=== PATIENT | female | born 1995 | race Caucasian/White ===

== ENCOUNTER 2019-01-23 23:50 | Emergency (ER) | payer OTHER ==
[~2019-01-23 23:50] MED LIST: ALBU3IS INH; BUDE6HFA INH; BUSP10 PO; CETI5 PO; CYCL10 PO; MONT10T PO; ONDA4 PO; PRED20 PO; Q VAR INH; QVAR REDIHALE10.6 GM; Xolair150 MG SC; [UNRECOGNIZED DRUG - OTHER]
== END 2019-01-24 00:51 | disposition left against medical advice (07) ==
LOC: ER 23:50
DX: Z53.21 Procedure and treatment not carried out due to patient leaving prior to being seen by health care provider (principal)

== ENCOUNTER → 2019-01-27 | Outpatient (CLI) | payer OTHER | END | disposition home or self-care (01) | LOC: LAB 14:51 → LAB SHORT 14:51 | DX: J45.901 Unspecified asthma with (acute) exacerbation (principal) | CPT/HCPCS: 87070; 87205 ==

== ENCOUNTER 2019-02-26 12:16 | Emergency (ER) | payer OTHER ==
[~2019-02-26] VITALS: Ht 177.8 cm; Wt 117.9 kg
[~2019-02-26 12:16] MED LIST changes: +ALBU3IS NEB; -MONT10T PO; +Prozac20 MG PO; -[UNRECOGNIZED DRUG - OTHER]
[2019-02-26] MEDS ORDERED: Zanaflex4 MG (13:23)
[2019-02-26] MEDS ORDERED: BUSP10 PO (13:23)
[2019-02-26] MEDS ORDERED: Prednisone20 MG PO (15:26)
== END 2019-02-26 15:43 | disposition home or self-care (01) ==
LOC: ER 12:16
DX: J45.901 Unspecified asthma with (acute) exacerbation (principal); Z79.899 Other long term (current) drug therapy
CPT/HCPCS: 94640; 94644; 96365; 96366; 96375; 99284-25; J2930; J3475; J7030

== ENCOUNTER 2019-03-01 14:55 | Inpatient (IN) | payer OTHER ==
[~2019-03-01] VITALS: Ht 177.8 cm; Wt 125.2 kg
[~2019-03-01 14:55] MED LIST changes: +Prednisone20 MG PO; +Zanaflex4 MG
[2019-03-01 15:58] LABS: BASOPHILS ABSOLUTE AUTO 0.08 K/mm3 (0.00-0.23); BASOPHILS PERCENT AUTO 0 % (0-2); EOSINOPHILS ABSOLUTE AUTO 0.53 K/mm3 (0.00-0.68); EOSINOPHILS PERCENT AUTO 3 % (0-6); Hematocrit 43.7 % (33.0-51.0); Hemoglobin 14.1 g/dL (11.5-16.0); IMMATURE GRAN ABSOLUTE AUTO 0.41 K/mm3 (0.00-0.10); IMMATURE GRAN PERCENT AUTO 2 % (0-1); LYMPHOCYTES ABSOLUTE AUTO 4.63 K/mm3 (0.84-5.20); LYMPHOCYTES PERCENT AUTO 24 % (21-46); MONOCYTES ABSOLUTE AUTO 1.36 K/mm3 (0.16-1.47); MONOCYTES PERCENT AUTO 7 % (4-13); Mean Corpuscular HGB 29.2 pg (26.0-34.0); Mean Corpuscular HGB Conc 32.3 g/dL (31.5-36.5); Mean Corpuscular Volume 91 fL (80-100); Mean Platelet Volume 10.6 fL (9.1-12.4); NEUTROPHILS PERCENT AUTO 63 % (41-73); Platelet Count 240 K/mm3 (150-400); RDW Coefficient Variation 13.5 % (11.7-14.2); RDW Standard Deviation 45.2 fL (35.1-46.3); Red Blood Cell Count 4.83 M/mm3 (3.80-5.20); White Blood Cell Count 19.11 K/mm3 (4.00-11.30)
[2019-03-01 16:21] LABS: Alanine Aminotransfer (ALT/SGP 36 U/L (12-78); Albumin/Globulin Ratio 1.3 (0.8-1.8); Alk Phos 83 U/L (50-136); Anion Gap 7 mmol/L (6-16); Aspartate Aminotrans (AST/SGOT 15 U/L (12-37); Bilirubin, Total 0.4 mg/dL (0.1-1.0); Blood Urea Nitrogen 14 mg/dL (8-24); Bun/Creatinine Ratio 15.2 (12.0-20.0); CO2, Blood 26 mmol/L (21-32); Calcium, Blood 9.1 mg/dL (8.5-10.1); Chloride, Blood 109 mmol/L (98-108); Creatinine, Blood 0.92 mg/dL (0.40-1.00); Globulin, Blood 3.1 g/dL (2.2-4.0); Glomerular Filtration Rate >60 (60-); Glucose, Blood 73 mg/dL (70-99); Potassium, Blood 3.4 mmol/L (3.5-5.5); Sodium, Blood 142 mmol/L (136-145); Total Protein, Blood 7.1 g/dL (6.4-8.2)
[2019-03-01 16:38] LABS: PCO2 Arterial 33.7 mmHg (35-45); PO2 Arterial 57.2 mmHg (80-100); pH Blood Arterial 7.47 (7.35-7.45)
[2019-03-01] MEDS ORDERED: BUDE6HFA INH (18:00)
[2019-03-01] MEDS ORDERED: PRED20 PO (18:00)
[2019-03-01] MEDS ORDERED: Zanaflex4 M1 PO (18:01)
[2019-03-01] MEDS ORDERED: ALBU90OI INH (18:03)
[2019-03-01] MEDS ORDERED: TUDORZA PRESS400 MCG INH (18:04)
[2019-03-01] MEDS ORDERED: VITAMIN D31000 UNIT PO (18:06)
[2019-03-02 02:07] LABS: Adenovirus Not Detected (NOT DETECT); Bordetella pertussis Not Detected (NOT DETECT); Chlamydophila pneumoniae Not Detected (NOT DETECT); Coronavirus 229E Not Detected (NOT DETECT); Coronavirus HKU1 Not Detected (NOT DETECT); Coronavirus NL63 Not Detected (NOT DETECT); Coronavirus OC43 Not Detected (NOT DETECT); Human Metapneumovirus Not Detected (NOT DETECT); Human Rhinovirus/Enterovirus Not Detected (NOT DETECT); Influenza A Not Detected (NOT DETECT); Influenza A/2009-H1 Not Detected (NOT DETECT); Influenza A/H1 Not Detected (NOT DETECT); Influenza A/H3 Not Detected (NOT DETECT); Influenza B Not Detected (NOT DETECT); Mycoplasma pneumoniae Not Detected (NOT DETECT); Parainfluenza Virus 1 Not Detected (NOT DETECT); Parainfluenza Virus 2 Not Detected (NOT DETECT); Parainfluenza Virus 3 Not Detected (NOT DETECT); Parainfluenza Virus 4 Not Detected (NOT DETECT); Respiratory Syncytial Virus Not Detected (NOT DETECT)
--- NOTE | 2019-03-02 04:59 | NUR ---
SHIFT SUMMARY 2100 RECEIVED PT TO 327 FROM ER. A&O, VERY PLEASANT AND CO-OP WITH CARE. RECEIVED REPORT FROM ESTHER ULRICH. PT TO ER FOR ASTHMA EXAC AND SOB X 1WEEK. PER REPORT, PT WAS STARTED ON PREDNISONE A COUPLE OF DAYS AGO WITHOUT IMPROVEMENT. RT TX'S AND SOLUMEDROL GIVEN IN ER. PT APPEARED IN NO ACUTE DISTRESS WHEN ADMITTED TO . PT C/O L SIDE/RIB PAIN AFTER ADMISSION. PT REFUSED TYLENOL. HOSPITALIST NOTIFIED, NEW ORDERS RECEIVED. MEDS AND IVF'S ADMIN. PT INDEPENDENT IN . TALKED ON PHONE FOR A WHILE AND HAS SINCE BEEN RESTING QUIETLY. CALL LT IN REACH. ABLE TO MAKE NEEDS KNOWN.
[2019-03-02 05:54] LABS: BASOPHILS ABSOLUTE AUTO 0.03 K/mm3 (0.00-0.23); BASOPHILS PERCENT AUTO 0 % (0-2); EOSINOPHILS ABSOLUTE AUTO 0.01 K/mm3 (0.00-0.68); EOSINOPHILS PERCENT AUTO 0 % (0-6); Hematocrit 43.7 % (33.0-51.0); IMMATURE GRAN PERCENT AUTO 2 % (0-1); LYMPHOCYTES ABSOLUTE AUTO 0.97 K/mm3 (0.84-5.20); LYMPHOCYTES PERCENT AUTO 8 % (21-46); MONOCYTES ABSOLUTE AUTO 0.15 K/mm3 (0.16-1.47); MONOCYTES PERCENT AUTO 1 % (4-13); Mean Corpuscular HGB 28.7 pg (26.0-34.0); Mean Corpuscular Volume 90 fL (80-100); Mean Platelet Volume 10.2 fL (9.1-12.4); NEUTROPHILS ABSOLUTE AUTO 11.13 K/mm3 (1.96-9.15); NEUTROPHILS PERCENT AUTO 88 % (41-73); Platelet Count 236 K/mm3 (150-400); RDW Coefficient Variation 13.2 % (11.7-14.2); RDW Standard Deviation 43.3 fL (35.1-46.3); Red Blood Cell Count 4.87 M/mm3 (3.80-5.20); White Blood Cell Count 12.59 K/mm3 (4.00-11.30)
[2019-03-02 06:27] LABS: Anion Gap 7 mmol/L (6-16); Blood Urea Nitrogen 14 mg/dL (8-24); CO2, Blood 24 mmol/L (21-32); Calcium, Blood 8.7 mg/dL (8.5-10.1); Chloride, Blood 107 mmol/L (98-108); Creatinine, Blood 0.78 mg/dL (0.40-1.00); Glomerular Filtration Rate >60 (60-); Glucose, Blood 118 mg/dL (70-99); Potassium, Blood 4.5 mmol/L (3.5-5.5); Sodium, Blood 138 mmol/L (136-145)
--- NOTE | 2019-03-02 16:57 | NUR ---
PT IS A/OX3, PLEASANT AND COOPERATIVE, THE PT IS UP IND IN HER ROOM, THE PT IS SOB WITH ACTIVITY, PT WAS MEDICATED FOR PAIN X1 SO FAR THIS SHIFT, FOR PAIN IN HER LEFT SIDE RIBS, THE PT IS RECIEVING SCHEDULED BREATHING TX'S, THE PTS TECHNICAL SERVICE ENGINEER WAS CONSULTED AND HAS SEEN THE PT, MULTIPLE FAMILY IN TO SEE THE PT TODAY, CALL LIGHT IN REACH, WILL CONTINUE TO MONITOR AND ASSESS FOR CHANGES
--- NOTE | 2019-03-03 05:28 | NUR ---
SHIFT SUMMARY NO ACUTE CHANGES TO PRESENT THIS SHIFT. PT'S FAMILY IN RM ALL SHIFT, SLEEPING AT BS. PT'S LUNGS T/O REMAIN WHEEZY, BUT OVERALL IMPROVED. PT HAS NOT APPEARED IN ANY ACUTE DISTRESS. DENIED NEEDS. INDEPENDENT IN RM. NO C/O PAIN TONIGHT. PULMONARY CONSULT CALLED BY HOSPITALIST. PT'S OWN HIDE SORTER TO SEE HER. CALL LT IN REACH. ABLE TO MAKE NEEDS KNOWN.
--- NOTE | 2019-03-03 07:45 | NUR ---
ASSUMED CARE OF PT- RECIEVED REPORT FROM NIGHT RN. PER REPORT PT IS ALERT AND ORIENTED AND INDEPENDENT. POSSIBLE DC HOME TODAY. PT WAS FEARFUL ABOUT GOING HOME YESTERDAY AND WAS HELD ONE ADDITIONAL DAY, HER OUT PT THERAPY HAD FAILED PRIOR TO ADMIT PER MD NOTE. PT WAS CONCERNED, LIKELY, FOR THIS REASON. PER REPORT FROM NIGHT RN JOHN PT DECLINED SOME OF THE EVENING BREATHING Tx, DISCHARGE TODAY IS LIKELY.
[2019-03-03] MEDS ORDERED: TRAM50 PO (11:30)
[2019-03-03] MEDS ORDERED: AZIT250 PO (11:31)
--- NOTE | 2019-03-03 12:04 | NUR ---
DISCHARGE NOTE- PT WAS GIVEN VERBAL AND WRITTEN DISCHARGE INSTRUCTIONS AND ACKNOWLEDGED UNDERSTANDING OF THEM. NO FURTHER QUESTIONS AT THE TIME OF DISCHARGE. MEDS CALLED IN TO [facility] PER PT REQUEST. IV AND TELE DC'D PRIOR TO DISCHARGE.
== END 2019-03-03 12:05 | disposition home or self-care (01) | DRG 189 ==
LOC: ER 14:55 → MEDS 18:01 → ENPENDDIS 03-03 10:27 → MEDS 03-03 12:05
PROVIDERS: Emergency Medicine; ADMIT Internal Medicine
DX: J96.01 Acute respiratory failure with hypoxia (principal); J45.52 Severe persistent asthma with status asthmaticus; R65.10 Systemic inflammatory response syndrome (SIRS) of non-infectious origin without acute organ dysfunction; F41.8 Other specified anxiety disorders; M79.7 Fibromyalgia; E66.01 Morbid (severe) obesity due to excess calories; Z68.37 Body mass index [BMI] 37.0-37.9, adult; K21.9 Gastro-esophageal reflux disease without esophagitis; Z79.52 Long term (current) use of systemic steroids
CPT/HCPCS: 36415; 36600; 71046; 80048; 80053; 82803; 83605; 84145; 84703; 85025; 87486; 87581; 87633; 87798; 94640; 94644; 94760; 96374; 96375; 99285-25; J1885; J2930; J7030

== ENCOUNTER 2019-04-06 14:54 | Inpatient (IN) | payer OTHER ==
[~2019-04-06] VITALS: Ht 177.8 cm; Wt 100.1 kg
[~2019-04-06 14:54] MED LIST changes: +ALBU90OI INH; +AZIT250 PO; +TRAM50 PO; +TUDORZA PRESS400 MCG INH; +VITAMIN D31000 UNIT PO; +Zanaflex4 M1 PO
[2019-04-06 15:26] LABS: BASOPHILS ABSOLUTE AUTO 0.15 K/mm3 (0.00-0.23); BASOPHILS PERCENT AUTO 1 % (0-2); EOSINOPHILS ABSOLUTE AUTO 0.41 K/mm3 (0.00-0.68); EOSINOPHILS PERCENT AUTO 2 % (0-6); Hematocrit 47.4 % (33.0-51.0); Hemoglobin 15.7 g/dL (11.5-16.0); IMMATURE GRAN ABSOLUTE AUTO 0.84 K/mm3 (0.00-0.10); IMMATURE GRAN PERCENT AUTO 4 % (0-1); LYMPHOCYTES ABSOLUTE AUTO 3.52 K/mm3 (0.84-5.20); LYMPHOCYTES PERCENT AUTO 16 % (21-46); MONOCYTES ABSOLUTE AUTO 1.17 K/mm3 (0.16-1.47); MONOCYTES PERCENT AUTO 5 % (4-13); Mean Corpuscular HGB 29.3 pg (26.0-34.0); Mean Corpuscular HGB Conc 33.1 g/dL (31.5-36.5); Mean Corpuscular Volume 89 fL (80-100); Mean Platelet Volume 10.5 fL (9.1-12.4); NEUTROPHILS ABSOLUTE AUTO 16.05 K/mm3 (1.96-9.15); NEUTROPHILS PERCENT AUTO 72 % (41-73); Platelet Count 233 K/mm3 (150-400); RDW Coefficient Variation 13.5 % (11.7-14.2); RDW Standard Deviation 43.7 fL (35.1-46.3); Red Blood Cell Count 5.35 M/mm3 (3.80-5.20); White Blood Cell Count 22.14 K/mm3 (4.00-11.30)
[2019-04-06 15:45] LABS: Bicarbonate Venous 23.2 mmol/L (24.0-30.0); PCO2 Venous 40.9 mmHg (38-42); PO2 Venous 88.8 mmHg (38-42); pH Blood Venous 7.37 (7.34-7.37)
[2019-04-06 15:46] LABS: Base Excess Venous -1.4 mmol/L
[2019-04-06 15:48] LABS: Alanine Aminotransfer (ALT/SGP 50 U/L (12-78); Albumin, Blood 4.4 g/dL (3.4-5.0); Albumin/Globulin Ratio 1.2 (0.8-1.8); Alk Phos 81 U/L (50-136); Anion Gap 8 mmol/L (6-16); Aspartate Aminotrans (AST/SGOT 30 U/L (12-37); Bilirubin, Total 0.7 mg/dL (0.1-1.0); Blood Urea Nitrogen 11 mg/dL (8-24); Bun/Creatinine Ratio 15.7 (12.0-20.0); CO2, Blood 24 mmol/L (21-32); Calcium, Blood 9.1 mg/dL (8.5-10.1); Chloride, Blood 108 mmol/L (98-108); Globulin, Blood 3.7 g/dL (2.2-4.0); Glomerular Filtration Rate >60 (60-); Glucose, Blood 125 mg/dL (70-99); Potassium, Blood 3.9 mmol/L (3.5-5.5); Sodium, Blood 140 mmol/L (136-145); Total Protein, Blood 8.1 g/dL (6.4-8.2)
[2019-04-06] MEDS ORDERED: Prednisone10 MG PO (17:12)
[2019-04-06] MEDS ORDERED: COMBIVENT RESPIM4 GM INH (17:14)
[2019-04-06] MEDS ORDERED: MONT10T PO (17:46)
--- NOTE | 2019-04-06 21:37 | NUR ---
1829: PT TO ICU 6 FROM ER. 1914: ASSUMED CARE OF PT. REPORT RCV'D FROM SERG VILLAGRAN. ADMISSION ASSESSMENT AND HISTORY FINISHED. PT ON BIPAP 10/5 21% WITH SATS IN THE MID TO HIGH 80'S. BIPAP SETTINGS CHANGED TO 10/8 35% BY RESPIRATORY THERAPY, CURRENT SATS IN LOW 90'S. INSPIRATORY/EXPIRATORY WHEEZES HEARD BILATERAL UPPER LUNGS, DIM BASES. PT ABLE TO TOLERATE REMOVING BIPAP FOR SHORT TIME TO TAKE PO MEDS. PT C/O LEFT SIDED LUNG PAIN. PT TACHYCARDIC. BP WNL. PT ALERT/ORIENTED AND COOPERATIVE WITH CARE. NS KCL@ 100 ML/HR AND AZITHROMYCIN GTT RUNNING. SEE ADMISSION ASSESSMENT AND HISTORY.
[2019-04-07 00:05] LABS: Source, Urine Clean Catch
[2019-04-07 00:09] LABS: Bilirubin, Urine Neg (Neg); Blood, Urine Neg (Neg); Glucose Qualitative, Urine Neg (Neg); Ketones, Urine 3+ (Neg); Leukocyte Esterase, Urine 2+ (Neg); Nitrite, Urine Neg (Neg); Protein, Urine Neg (Neg); Urobilinogen, Urine NORM (Normal)
[2019-04-07 00:25] LABS: Appearance, Urine Clear (Clear); Color, Urine Yellow (P-Yellow)
[2019-04-07 00:26] LABS: Bacteria Mod /hpf; Red Blood Cells, Urine 0-2 /hpf (0-2); Squamous Epithelial Cells Many /hpf (Few)
[2019-04-07 01:24] LABS: Adenovirus Not Detected (NOT DETECT); Bordetella pertussis Not Detected (NOT DETECT); Chlamydophila pneumoniae Not Detected (NOT DETECT); Coronavirus 229E Not Detected (NOT DETECT); Coronavirus HKU1 Not Detected (NOT DETECT); Coronavirus NL63 Not Detected (NOT DETECT); Coronavirus OC43 Not Detected (NOT DETECT); Human Metapneumovirus Not Detected (NOT DETECT); Human Rhinovirus/Enterovirus Not Detected (NOT DETECT); Influenza A Not Detected (NOT DETECT); Influenza A/2009-H1 Not Detected (NOT DETECT); Influenza A/H1 Not Detected (NOT DETECT); Influenza A/H3 Not Detected (NOT DETECT); Influenza B Not Detected (NOT DETECT); Mycoplasma pneumoniae Not Detected (NOT DETECT); Parainfluenza Virus 1 Not Detected (NOT DETECT); Parainfluenza Virus 2 Not Detected (NOT DETECT); Parainfluenza Virus 3 Not Detected (NOT DETECT); Parainfluenza Virus 4 Not Detected (NOT DETECT); Respiratory Syncytial Virus Not Detected (NOT DETECT)
[2019-04-07 03:37] LABS: BASOPHILS ABSOLUTE AUTO 0.04 K/mm3 (0.00-0.23); BASOPHILS PERCENT AUTO 0 % (0-2); EOSINOPHILS PERCENT AUTO 0 % (0-6); Hematocrit 44.8 % (33.0-51.0); Hemoglobin 14.6 g/dL (11.5-16.0); IMMATURE GRAN ABSOLUTE AUTO 0.46 K/mm3 (0.00-0.10); IMMATURE GRAN PERCENT AUTO 2 % (0-1); LYMPHOCYTES ABSOLUTE AUTO 0.56 K/mm3 (0.84-5.20); LYMPHOCYTES PERCENT AUTO 3 % (21-46); MONOCYTES ABSOLUTE AUTO 0.21 K/mm3 (0.16-1.47); MONOCYTES PERCENT AUTO 1 % (4-13); Mean Corpuscular HGB 29.1 pg (26.0-34.0); Mean Corpuscular HGB Conc 32.6 g/dL (31.5-36.5); Mean Corpuscular Volume 89 fL (80-100); Mean Platelet Volume 10.4 fL (9.1-12.4); NEUTROPHILS ABSOLUTE AUTO 18.31 K/mm3 (1.96-9.15); NEUTROPHILS PERCENT AUTO 94 % (41-73); Platelet Count 221 K/mm3 (150-400); RDW Coefficient Variation 13.4 % (11.7-14.2); RDW Standard Deviation 43.8 fL (35.1-46.3); Red Blood Cell Count 5.01 M/mm3 (3.80-5.20); White Blood Cell Count 19.58 K/mm3 (4.00-11.30)
[2019-04-07 03:54] LABS: Anion Gap 7 mmol/L (6-16); Blood Urea Nitrogen 8 mg/dL (8-24); Bun/Creatinine Ratio 12.1 (12.0-20.0); CO2, Blood 23 mmol/L (21-32); Calcium, Blood 8.5 mg/dL (8.5-10.1); Chloride, Blood 108 mmol/L (98-108); Creatinine, Blood 0.66 mg/dL (0.40-1.00); Glomerular Filtration Rate >60 (60-); Glucose, Blood 150 mg/dL (70-99); Potassium, Blood 4.5 mmol/L (3.5-5.5); Sodium, Blood 138 mmol/L (136-145)
--- NOTE | 2019-04-07 05:48 | NUR ---
SHIFT SUMMARY NO ACUTE CHANGES OVERNIGHT. PT REMAINS ON BIPAP 10/8 35% WITH O2 SATS IN THE MID 90'S. PT UP TO USE TOILET TO HAVE BM WITH SBA. PT KEPT BIPAP ON DURING AMBULATION, PT DYSPNEIC WITH EXERTION WITH INCREASED RR. PT STILL CONTINUES TO HAVE INSPIRATORY/EXPIRATORY WHEEZES BILATERAL UPPER LOBES BUT HAVE IMPROVED SINCE ADMISSION. WILL REPORT TO DAYSSDFT NURSE.
--- NOTE | 2019-04-07 08:00 | NUR ---
ASSUMED CARE OF PT. PT IS ALERT AND ORIENTED. PT IS FOLLOWING COMMANDS. PT HAS BEEN ON BIPAP 10/5 30% FIO2. PT IS HAVING A BREAK ON HER BIPAP AT THIS TIME AND IS CURRENTLY @ 6LPM NC. O2 SATURATION 96% ON 6LPM. PT STATED SHE IS BREATHING A LITTLE BETTER TODAY THAN YESTERDAY.
--- NOTE | 2019-04-07 09:13 | NUR ---
SEEN BY DR. STREETER. UPDATED HER OF PT'S STATUS. ORDERS RECEIVED. PT'S STATUS HAS BEEN CHANGED TO PCU STATUS.
--- NOTE | 2019-04-07 10:55 | NUR ---
REPORT GIVEN TO SERG MARTINEZ. PT WILL BE TRASNFERED TO ROOM PCU 16.
--- NOTE | 2019-04-07 11:10 | NUR ---
pt arrived to pcu 16 via wheelchair from icu, report obtained from Yamil ULRICH. pt is ambulatory and steady on her feet. states she is feeling a lot better than yesterday. will have a shower. call light in reach.
--- NOTE | 2019-04-07 18:32 | NUR ---
pt resting in bed with family in room. states he side hurts in her lung where she has chronic pain, doesn't want tramadol, states it doesn't do anything. no offered heat pad, she said it doesn't help. no further changes this shift, call light in reach.
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
--- NOTE | 2019-04-08 07:07 | NUR ---
pt sitting up in bed recieving a breathing tx. a/ox3, pleasant and cooperative with care follows commands well, denies complaints of pain this am, states she had a pretty good night, lungs are dim with exp wheezing t/o, resp even and unlabord, no cough noted at this time, she is currently on 3.5 liters 02 via n/c, hrr, tele in place running sr per monitor, see strip, slight facial edema iv to r wrist, s.l. btx4, abd flat soft nontender, voids without diff, skin c/w/d, rosita fitzgerald, call light in reach, family in room.
--- NOTE | 2019-04-08 12:42 | NUR ---
PT HAS BEEN OFF O2 SINCE 0900, SATS ARE MAINTAINING AT 92%. SHE STATES SHE FEELS GOOD AND COULD GO HOME, OR STAY WHAT EVER SAYS, WILL CALL DR. VELASCO. FAMILY IN ROOM. CALL LIGHT IN REACH.
--- NOTE | 2019-04-08 16:29 | NUR ---
PT VISITING WITH FAMILY AND FRIENDS IN ROOM. SHE WAS HTN, SHE IS HAVING PAIN RATES AT 7/10, CALLED DR. VELASCO, RECIEVED ORDER FOR TORADOL AND HYDRALAZINE, GAVE THE TORADAL, B/P IS DOWN A BIT, PAIN NOW AT 5/10. WILL BE SENDINTG TO MEDICAL FLOOR, REPORT GIVEN TO GIOVANY ULRICH. HE WILL CALL WHEN ROOM IS READY. CALL LIGHT IN REACH.
--- NOTE | 2019-04-08 17:02 | NUR ---
PT WAS TRANSFERED TO MEDICAL FLOOR VIA WHEELCHAIR WITH ADULT MANAGER IN ATTENDENCE AND FAMILY TOOK ALL HER BELONGINGS.
--- NOTE | 2019-04-08 17:29 | NUR ---
TRANSFER FROM U 13. ARRIVE RM 301 APPROX 1630 VIA W/C ACCOMPANIED BY MULT FAMILY MEMBERS. SHE IS A/O X4, TRANSFERS/AMBULATES IND. PLEASANT AFFECT. STATES SOB @ THIS TIME, STATES HAS IMPROVED SINCE ADMIT, NO LONGER REQUIRING O2. STATE HX ASTHMA SINCE CHILDHOOD. LUNGS WHEEZY T/O, BIOX >90% RA. IV AZITH INFUSING/ORDER, SHE DECLINE LOVENOX INJ. ENCOURAGED HER TO CALL FOR BREATHING TX IF NEEDED. SITTING UP IN BED FOR DINNER, INTERACTING WITH VISITORS.
--- NOTE | 2019-04-09 05:53 | NUR ---
SHIFT SUMMARY: SLEEP STUDY IN PROGRESS TONLAURA. PT TOLERATING RA WITH O2 SATS 93-96%. PT DENIES ANY SOB OR DISCOMFORT. INSPIRATORY/EXPIRATORY WHEEZE BILATERAL T/O. PT HAS MULTIPLE FAMILY MEMBERS IN RM T/O NIGHT AND REPORTS A GOOD SUPPORT SYSTEM AT HOME. SOLU MEDROL ADMINISTERED Q8H PER EMAR. DENIES PAIN. NO OTHER CHANGES TO REPORT, WILL CONT TO MONITOR AND PROVIDE CARE UNTIL PRESUMED BY ONCOMING RN.
--- NOTE | 2019-04-09 12:10 | NUR ---
SHIFT SUMMARY PT SLEEPING AT START OF SHIFT. WOKE FOR BS REPORT. VERY PLEASANT AND CO-OP. ADMITTED FOR ASTHMA EXAC, IMPROVED SINCE ADMIT. PT REPORTED FEELING MUCH BETTER NOW. AMITTED ON BIPAP AT 6L O2, NOW ON RA. LUNGS T/O WITH INSP/EXP WHEEZES. PT CHANGED FROM IV SOLUMEDROL THIS AM TO PO PREDNISONE AND D/C TO HOME. FAMILY IN AT START OF SHIFT, LEAVING PRIOR TO D/C. IV D/C'D WNL'S. PT ASSISTED OUT TO CAR VIA W/C AND CIRCUS TRAIN SUPERVISOR.
== END 2019-04-09 11:33 | disposition home or self-care (01) | DRG 189 ==
LOC: ER 14:54 → ICUW 17:09 → ICUE 18:30 → PCU 04-07 11:05 → MEDS 04-08 16:51 → ENPENDDIS 04-09 10:30 → MEDS 04-09 11:33
PROVIDERS: Nurse Practitioner Acute Care; Physician Assistant; ADMIT Internal Medicine
DX: J96.01 Acute respiratory failure with hypoxia (principal); J45.51 Severe persistent asthma with (acute) exacerbation; M79.7 Fibromyalgia; E66.01 Morbid (severe) obesity due to excess calories; F41.8 Other specified anxiety disorders; J44.9 Chronic obstructive pulmonary disease, unspecified; K21.9 Gastro-esophageal reflux disease without esophagitis; Z88.1 Allergy status to other antibiotic agents; Z79.899 Other long term (current) drug therapy; Z68.37 Body mass index [BMI] 37.0-37.9, adult
CPT/HCPCS: 0099U; 36415; 71045; 80048; 80053; 81001; 82803; 84484; 85025; 87086; 93005; 93010; 94640; 94644; 94660; 94760; 94762; 96365; 96366; 96367; 96368; 96375; 99285-25; J0456; J0780; J1885; J2920; J2930; J3475; J3480; J7030; J7050

== ENCOUNTER 2019-05-05 15:52 | Observation (INO) | payer OTHER ==
[~2019-05-05] VITALS: Ht 180.3 cm; Wt 127.2 kg
[~2019-05-05 15:52] MED LIST changes: +COMBIVENT RESPIM4 GM INH; +MONT10T PO; +Prednisone10 MG PO
[2019-05-05] MEDS ORDERED: Prednisone10 MG PO (16:32)
[2019-05-05] MEDS ORDERED: Azithromycin500 MG PO (16:33)
[2019-05-05 16:51] LABS: BASOPHILS PERCENT AUTO 1 % (0-2); EOSINOPHILS ABSOLUTE AUTO 0.01 K/mm3 (0.00-0.68); EOSINOPHILS PERCENT AUTO 0 % (0-6); Hematocrit 45.9 % (33.0-51.0); Hemoglobin 15.4 g/dL (11.5-16.0); IMMATURE GRAN ABSOLUTE AUTO 0.93 K/mm3 (0.00-0.10); IMMATURE GRAN PERCENT AUTO 5 % (0-1); LYMPHOCYTES ABSOLUTE AUTO 1.18 K/mm3 (0.84-5.20); LYMPHOCYTES PERCENT AUTO 6 % (21-46); MONOCYTES PERCENT AUTO 2 % (4-13); Mean Corpuscular HGB 30.1 pg (26.0-34.0); Mean Corpuscular HGB Conc 33.6 g/dL (31.5-36.5); Mean Corpuscular Volume 90 fL (80-100); NEUTROPHILS ABSOLUTE AUTO 18.07 K/mm3 (1.96-9.15); NEUTROPHILS PERCENT AUTO 87 % (41-73); Platelet Count 265 K/mm3 (150-400); RDW Coefficient Variation 13.9 % (11.7-14.2); RDW Standard Deviation 45.2 fL (35.1-46.3); Red Blood Cell Count 5.11 M/mm3 (3.80-5.20); White Blood Cell Count 20.69 K/mm3 (4.00-11.30)
[2019-05-05 17:51] LABS: Alanine Aminotransfer (ALT/SGP 51 U/L (12-78); Albumin, Blood 4.3 g/dL (3.4-5.0); Albumin/Globulin Ratio 1.2 (0.8-1.8); Alk Phos 90 U/L (50-136); Anion Gap 10 mmol/L (6-16); Bilirubin, Total 0.6 mg/dL (0.1-1.0); Blood Urea Nitrogen 14 mg/dL (8-24); CO2, Blood 21 mmol/L (21-32); Chloride, Blood 108 mmol/L (98-108); Creatinine, Blood 0.88 mg/dL (0.40-1.00); Globulin, Blood 3.6 g/dL (2.2-4.0); Glomerular Filtration Rate >60 (60-); Glucose, Blood 123 mg/dL (70-99); Sodium, Blood 139 mmol/L (136-145); Total Protein, Blood 7.9 g/dL (6.4-8.2)
[2019-05-05 18:00] LABS: Aspartate Aminotrans (AST/SGOT 16 U/L (12-37); Calcium, Blood 9.8 mg/dL (8.5-10.1)
--- NOTE | 2019-05-06 05:57 | NUR ---
SHIFT SUMMARY PT ADMITTED FROM ER DURING SHIFT. PT REPORTS FEELING OF TIGHTNESS AND SOB IMPROVED. RA; SATS OVER 90% T/O SHIFT. CONT.-OX IN PLACE. EVEN WOB. A&O X4 T/O SHIFT. SBA ENCOURAGED WHEN OOB FOR SAFETY. IV GTT PER EMAR. CALL LIGHT IN REACH; PT DEMONSTRATES USE. SCD'S TO BLE'S. TELEMETRY IN PLACE; SR/ST PER APPLICATION TRAINER. FAMILY AT BEDSIDE. CALL LIGHT IN REACH.
--- NOTE | 2019-05-06 07:42 | NUR ---
The pt is awake, sitting up in bed, cheerful and talking pleasantly. Respirations are even, unlabored, at 14-16/min, spo2 90% on room air. She has audible wheezing, expiratory and inspiratory just after finishing her breathing treatment. States that she has been having left sided pain every since having a bronchiothermoplasty last year. States it is excrutiating, and no scans or imaging studies have been able to determine the cause.
[2019-05-06] MEDS ORDERED: Prednisone10 MG PO (11:16)
[2019-05-06] MEDS ORDERED: AZIT500 PO (11:19)
== END 2019-05-06 11:48 | disposition home or self-care (01) ==
LOC: ER 15:52 → PCU 15:53
PROVIDERS: Physician Assistant; ADMIT Hospitalist
DX: J45.51 Severe persistent asthma with (acute) exacerbation (principal); J96.01 Acute respiratory failure with hypoxia; J06.9 Acute upper respiratory infection, unspecified; F41.8 Other specified anxiety disorders; K21.9 Gastro-esophageal reflux disease without esophagitis; E66.01 Morbid (severe) obesity due to excess calories; Z79.899 Other long term (current) drug therapy; Z68.36 Body mass index [BMI] 36.0-36.9, adult
CPT/HCPCS: 71046; 80053; 85025; 93005; 93010; 94640; 94644; 94762; 96361; 96365; 96366; 96375; 96376; 99285-25; G0378; J2930; J3475; J7030

== ENCOUNTER 2019-07-05 15:52 | Emergency (ER) | payer OTHER ==
[~2019-07-05] VITALS: Ht 180.3 cm; Wt 129.3 kg
[~2019-07-05 15:52] MED LIST changes: +AZIT500 PO; +Azithromycin500 MG PO
[2019-07-05 17:05] LABS: pH Blood Venous 7.41 (7.34-7.37)
[2019-07-05 17:06] LABS: Base Excess Venous -1.9 mmol/L; Bicarbonate Venous 23.2 mmol/L (24.0-30.0); PCO2 Venous 35.9 mmHg (38-42); PO2 Venous 62.4 mmHg (38-42)
[2019-07-05] MEDS ORDERED: PRED10 PO (17:42)
== END 2019-07-05 17:55 | disposition home or self-care (01) ==
LOC: ER 15:52
PROVIDERS: Physician Assistant
DX: J45.901 Unspecified asthma with (acute) exacerbation (principal); Z88.0 Allergy status to penicillin; Z79.899 Other long term (current) drug therapy; Z79.52 Long term (current) use of systemic steroids
CPT/HCPCS: 82803; 94644; 96365; 96375; 99285-25; J2930; J3475; J7030

== ENCOUNTER 2019-08-12 13:21 | Inpatient (IN) | payer OTHER ==
[~2019-08-12] VITALS: Ht 177.8 cm; Wt 128.0 kg
[~2019-08-12 13:21] MED LIST changes: -ALBU3IS NEB; -CETI5 PO; +Cetirizine HCl10 MG PO; +PRED10 PO
[2019-08-12 14:00] LABS: BASOPHILS ABSOLUTE AUTO 0.14 K/mm3 (0.00-0.23); BASOPHILS PERCENT AUTO 1 % (0-2); EOSINOPHILS ABSOLUTE AUTO 0.74 K/mm3 (0.00-0.68); EOSINOPHILS PERCENT AUTO 4 % (0-6); Hematocrit 49.3 % (33.0-51.0); Hemoglobin 16.2 g/dL (11.5-16.0); IMMATURE GRAN PERCENT AUTO 2 % (0-1); LYMPHOCYTES ABSOLUTE AUTO 3.24 K/mm3 (0.84-5.20); LYMPHOCYTES PERCENT AUTO 19 % (21-46); MONOCYTES ABSOLUTE AUTO 1.01 K/mm3 (0.16-1.47); MONOCYTES PERCENT AUTO 6 % (4-13); Mean Corpuscular HGB 29.7 pg (26.0-34.0); Mean Corpuscular HGB Conc 32.9 g/dL (31.5-36.5); Mean Corpuscular Volume 90 fL (80-100); Mean Platelet Volume 10.3 fL (9.1-12.4); NEUTROPHILS ABSOLUTE AUTO 12.02 K/mm3 (1.96-9.15); NEUTROPHILS PERCENT AUTO 68 % (41-73); Platelet Count 285 K/mm3 (150-400); RDW Coefficient Variation 13.3 % (11.7-14.2); RDW Standard Deviation 43.5 fL (35.1-46.3); Red Blood Cell Count 5.46 M/mm3 (3.80-5.20); White Blood Cell Count 17.55 K/mm3 (4.00-11.30)
[2019-08-12 14:18] LABS: Alanine Aminotransfer (ALT/SGP 56 U/L (12-78); Albumin, Blood 4.5 g/dL (3.4-5.0); Albumin/Globulin Ratio 1.3 (0.8-1.8); Alk Phos 107 U/L (50-136); Anion Gap 9 mmol/L (6-16); Aspartate Aminotrans (AST/SGOT 33 U/L (12-37); Bilirubin, Total 0.7 mg/dL (0.1-1.0); Blood Urea Nitrogen 8 mg/dL (8-24); Bun/Creatinine Ratio 9.8 (12.0-20.0); CO2, Blood 26 mmol/L (21-32); Calcium, Blood 9.2 mg/dL (8.5-10.1); Chloride, Blood 106 mmol/L (98-108); Creatinine, Blood 0.82 mg/dL (0.40-1.00); Globulin, Blood 3.5 g/dL (2.2-4.0); Glomerular Filtration Rate >60 (60-); Glucose, Blood 109 mg/dL (70-99); Potassium, Blood 3.4 mmol/L (3.5-5.5); Sodium, Blood 141 mmol/L (136-145)
[2019-08-12] MEDS ORDERED: PRED20 PO (18:18)
[2019-08-12] MEDS ORDERED: Hydrochlorothia25 MG PO (18:20)
[2019-08-12] MEDS ORDERED: XANAX0.25 MG PO (18:23)
[2019-08-13 03:49] LABS: Hematocrit 45.4 % (33.0-51.0); Hemoglobin 14.4 g/dL (11.5-16.0); Mean Corpuscular HGB 29.3 pg (26.0-34.0); Mean Corpuscular HGB Conc 31.7 g/dL (31.5-36.5); Mean Corpuscular Volume 92 fL (80-100); Mean Platelet Volume 10.6 fL (9.1-12.4); Platelet Count 265 K/mm3 (150-400); RDW Standard Deviation 44.3 fL (35.1-46.3); Red Blood Cell Count 4.92 M/mm3 (3.80-5.20); White Blood Cell Count 13.15 K/mm3 (4.00-11.30)
[2019-08-13 04:09] LABS: Anion Gap 7 mmol/L (6-16); Blood Urea Nitrogen 9 mg/dL (8-24); Bun/Creatinine Ratio 11.1 (12.0-20.0); CO2, Blood 25 mmol/L (21-32); Calcium, Blood 8.8 mg/dL (8.5-10.1); Chloride, Blood 108 mmol/L (98-108); Creatinine, Blood 0.81 mg/dL (0.40-1.00); Glomerular Filtration Rate >60 (60-); Glucose, Blood 124 mg/dL (70-99); Potassium, Blood 4.3 mmol/L (3.5-5.5); Sodium, Blood 140 mmol/L (136-145)
--- NOTE | 2019-08-13 06:45 | NUR ---
ADMIT NOTE/SHIFT SUMMARY PATIENT PLEASENT AND COOPERATIVE UPON ADMIT. PATIENT VERY CHEERFUL AND INTERACTIVE WITH STAFF. PATIENT SETTLED IN AND ORIETNED TO THE ROOM, UNIT, AND CALL LIGHT. PATIENT APPEARED TO SLEEP WELL THROUGHOUT MOST OF THE NIGHT. PAIN MEDICATION PROVIDED PER EMAR. PATIENT'S AND DAUGHTER STAYED THE NIGHT AT THE BEDSIDE. IV FLUIDS RUNNING PER ORDERS. WILL CONTINUE TO MONITOR PATIENT AND REPORT TO ONCOMING RN.
--- NOTE | 2019-08-13 08:48 | NUR ---
AM NOTE. ASSUMED CARE OF PT APROX 0700. PT IS A&Ox4 AND IND IN THE ROOM. PT WAS ADMITTED FOR ASHTMA EXAC. PT IS ON RA WITH O2 SATS AT 90-92%. L/S COARSE WHEEZES T/O, PER PT SHE FEELS "MUCH BETTER" AND BREATHING IS EASIER. PT'S VS STABLE. PT'S SO AND DAUGHTER ARE IN THE ROOM. PT IS C/O OF PAIN THE THE LEFT CHEST WALL WITH BREATHING WILL MEDICATE PER EMAR. CALL LIGHT IN REACH, WILL CONTINUE TO MONITOR.
--- NOTE | 2019-08-13 17:57 | NUR ---
SHIFT SUMMARY. NO ACUTE NEGATIVE CHANGES NOTED THIS SHIFT. PT'S L/S HAVE IMPROVED, LESS WHEEZING IS NOTED. PT HAS BEEN >90% ON RA. PT'S VS STABLE. PT C/O OF PAIN TO THE LEFT CHEST, PT MEDICATED PER EMAR W/GOOD RESULTS. CALL LIGHT IN REACH, BED IS LOCKED AND LOW WILL CONTINUE TO MONITOR UNTIL REPORT IS GIVEN TO ONCOMING RN.
--- NOTE | 2019-08-14 05:41 | NUR ---
SHIFT SUMMARY PATIENT PLEASENT THROUGHOUT THE NIGHT. PATIENT MEDICATED FOR PAIN PER EMAR. PATIENT APPEARED TO SLEEP WELL THROUGHOUT THE NIGHT. PATIENT'S SIGNIFICANT OTHER AND DAUGHTER STAYED THE NIGHT AT THE BEDSIDE. PATIENT INDEPENDENT IN ROOM. VITAL SIGNS CHARTED. PATIENT CURRENTLY APPEARS TO BE SLEEPING AT THIS TIME. WILL CONTINUE TO MONITOR PATIENT AND REPORT TO ONCOMING RN.
--- NOTE | 2019-08-14 08:12 | NUR ---
AM NOTE. ASSUMED CARE OF PT APROX 0700. PT IS A&Ox4 AND IND IN THE ROOM. PT WAS ADMITTED FOR ASTHMA EXAC. PT IS CURRENTLY ON RA WITH O2 SATS AT 91%. PT STATES SHE IS FEELING BETTER, L/S INSP/EXP COARSE WHEEZES T/O. NO EDEMA NOTED ON ASSESSMENT. BT PRESENT AND NORMOACTIVE, ABD IS SOFT AND NONTENDER TO PALP. PT'S AND CHILD ARE IN THE ROOM/SLEEPING. PROVIDER AT THE BEDSIDE. PT IS ASKING TO D/C HOME TODAY. PROVIDER IS AGREEABLE TO THIS. CALL LIGHT IN REACH, BED IS LOCKED AND LOW WILL CONTINUE TO MONITOR.
[2019-08-14] MEDS ORDERED: PANT20 PO (09:14)
[2019-08-14] MEDS ORDERED: PRED20 PO (09:18)
[2019-08-14] MEDS ORDERED: Percocet 5-3251 EACH PO (09:19)
== END 2019-08-14 10:50 | disposition home or self-care (01) | DRG 189 ==
LOC: ER 13:21 → PCU 18:10 → MEDS 18:10 → PCU 21:42
PROVIDERS: Physician Assistant; ADMIT Internal Medicine
DX: J96.01 Acute respiratory failure with hypoxia (principal); J45.51 Severe persistent asthma with (acute) exacerbation; Z68.41 Body mass index [BMI] 40.0-44.9, adult; F41.8 Other specified anxiety disorders; K21.9 Gastro-esophageal reflux disease without esophagitis; E66.01 Morbid (severe) obesity due to excess calories; Z79.52 Long term (current) use of systemic steroids; Z79.899 Other long term (current) drug therapy
CPT/HCPCS: 36415; 71046; 80048; 80053; 85025; 85027; 94640; 94644; 94760; 96361; 96365; 96375; 99285-25; C9113; J2270; J2930; J3475; J7030; J7120

== ENCOUNTER 2019-08-19 23:30 | Emergency (ER) | payer OTHER ==
[~2019-08-19] VITALS: Ht 177.8 cm; Wt 127.0 kg
[~2019-08-19 23:30] MED LIST changes: +Hydrochlorothia25 MG PO; +PANT20 PO; +Percocet 5-3251 EACH PO; +XANAX0.25 MG PO
[2019-08-20 00:28] LABS: Mean Corpuscular HGB 29.9 pg (26.0-34.0); Mean Corpuscular HGB Conc 32.6 g/dL (31.5-36.5); Mean Corpuscular Volume 92 fL (80-100); Platelet Count 257 K/mm3 (150-400); RDW Coefficient Variation 13.2 % (11.7-14.2); RDW Standard Deviation 43.7 fL (35.1-46.3); Red Blood Cell Count 5.02 M/mm3 (3.80-5.20); White Blood Cell Count 23.66 K/mm3 (4.00-11.30)
[2019-08-20 00:46] LABS: Alanine Aminotransfer (ALT/SGP 63 U/L (12-78); Albumin, Blood 3.7 g/dL (3.4-5.0); Albumin/Globulin Ratio 1.2 (0.8-1.8); Alk Phos 89 U/L (50-136); Anion Gap 9 mmol/L (6-16); Aspartate Aminotrans (AST/SGOT 25 U/L (12-37); Bilirubin, Total 0.2 mg/dL (0.1-1.0); Blood Urea Nitrogen 20 mg/dL (8-24); Bun/Creatinine Ratio 20.3 (12.0-20.0); CO2, Blood 24 mmol/L (21-32); Calcium, Blood 8.7 mg/dL (8.5-10.1); Chloride, Blood 105 mmol/L (98-108); Creatinine, Blood 0.98 mg/dL (0.40-1.00); Globulin, Blood 3.2 g/dL (2.2-4.0); Glomerular Filtration Rate >60 (60-); Glucose, Blood 114 mg/dL (70-99); Potassium, Blood 3.6 mmol/L (3.5-5.5); Sodium, Blood 138 mmol/L (136-145); Total Protein, Blood 6.9 g/dL (6.4-8.2)
[2019-08-20 00:50] LABS: BAND PERCENT MAN 2 % (0-8); BASOPHILS PERCENT MAN 0 % (0-2); EOSINOPHILS PERCENT MAN 0 % (0-6); LYMPHOCYTES ABSOLUTE MAN 8.04 K/mm3 (0.84-5.20); LYMPHOCYTES PERCENT MAN 34 % (21-46); MONOCYTES ABSOLUTE MAN 1.65 K/mm3 (0.16-1.47); MONOCYTES PERCENT MAN 7 % (4-13); MYELOCYTE ABSOLUTE MAN 0.47 K/mm3 (0.00-0.00); MYELOCYTE PERCENT MAN 2 % (0-0); NEUTROPHILS ABSOLUTE MAN 13.48 K/mm3 (1.96-9.15); SEG NEUTROPHILS PERCENT MAN 55 % (41-73); TOTAL CELLS COUNTED 100
[2019-08-20] MEDS ORDERED: Percocet 5-3251 EACH PO (02:16)
== END 2019-08-20 02:49 | disposition home or self-care (01) ==
LOC: ER 23:30
PROVIDERS: Emergency Medicine
DX: R07.9 Chest pain, unspecified (principal); J44.9 Chronic obstructive pulmonary disease, unspecified; Z88.0 Allergy status to penicillin; Z79.899 Other long term (current) drug therapy; Z79.51 Long term (current) use of inhaled steroids
CPT/HCPCS: 36415; 71046; 80053; 84484; 85025; 93005; 93010; 96374; 96375; 99284; J2405; J3010

== ENCOUNTER 2019-08-23 21:09 | Emergency (ER) | payer OTHER ==
[~2019-08-23] VITALS: Ht 177.8 cm; Wt 127.0 kg
[2019-08-23] MEDS ORDERED: KETO10 PO (22:40)
== END 2019-08-23 22:52 | disposition home or self-care (01) ==
LOC: ER 21:09
DX: S39.012A Strain of muscle, fascia and tendon of lower back, initial encounter (principal); J45.909 Unspecified asthma, uncomplicated; Z79.899 Other long term (current) drug therapy; X58.XXXA Exposure to other specified factors, initial encounter
CPT/HCPCS: 36415; 71046; 96374; 96375; 99283-25; J1885; J3010

== ENCOUNTER 2019-10-05 15:58 | Inpatient (IN) | payer OTHER ==
[~2019-10-05] VITALS: Ht 177.8 cm; Wt 131.2 kg
[~2019-10-05 15:58] MED LIST changes: +KETO10 PO
[2019-10-05] MEDS ORDERED: PRED20 PO (16:29)
[2019-10-05] MEDS ORDERED: COMBIVENT RESPIM4 GM INH (16:30)
[2019-10-05] MEDS ORDERED: TIZA4 PO (16:31)
[2019-10-05] MEDS ORDERED: MAGNESIUM OXID500 MG PO (16:32)
[2019-10-05] MEDS ORDERED: FURO20 PO (16:32)
[2019-10-05] MEDS ORDERED: DICL75ER PO (16:33)
[2019-10-05 16:35] LABS: BASOPHILS ABSOLUTE AUTO 0.09 K/mm3 (0.00-0.23); BASOPHILS PERCENT AUTO 1 % (0-2); EOSINOPHILS ABSOLUTE AUTO 0.47 K/mm3 (0.00-0.68); EOSINOPHILS PERCENT AUTO 4 % (0-6); Hematocrit 45.1 % (33.0-51.0); Hemoglobin 14.6 g/dL (11.5-16.0); IMMATURE GRAN ABSOLUTE AUTO 0.25 K/mm3 (0.00-0.10); IMMATURE GRAN PERCENT AUTO 2 % (0-1); LYMPHOCYTES PERCENT AUTO 25 % (21-46); MONOCYTES ABSOLUTE AUTO 0.78 K/mm3 (0.16-1.47); MONOCYTES PERCENT AUTO 7 % (4-13); Mean Corpuscular HGB 29.6 pg (26.0-34.0); Mean Corpuscular HGB Conc 32.4 g/dL (31.5-36.5); Mean Corpuscular Volume 91 fL (80-100); Mean Platelet Volume 10.3 fL (9.1-12.4); NEUTROPHILS ABSOLUTE AUTO 7.17 K/mm3 (1.96-9.15); NEUTROPHILS PERCENT AUTO 62 % (41-73); Platelet Count 251 K/mm3 (150-400); RDW Coefficient Variation 13.4 % (11.7-14.2); RDW Standard Deviation 45.4 fL (35.1-46.3); Red Blood Cell Count 4.94 M/mm3 (3.80-5.20); White Blood Cell Count 11.66 K/mm3 (4.00-11.30)
[2019-10-05 17:12] LABS: Alanine Aminotransfer (ALT/SGP 82 U/L (12-78); Albumin, Blood 3.9 g/dL (3.4-5.0); Albumin/Globulin Ratio 1.3 (0.8-1.8); Alk Phos 101 U/L (50-136); Anion Gap 6 mmol/L (6-16); Aspartate Aminotrans (AST/SGOT 28 U/L (12-37); Bilirubin, Total 0.5 mg/dL (0.1-1.0); Blood Urea Nitrogen 12 mg/dL (8-24); Bun/Creatinine Ratio 14.4 (12.0-20.0); CO2, Blood 27 mmol/L (21-32); Calcium, Blood 9.1 mg/dL (8.5-10.1); Chloride, Blood 108 mmol/L (98-108); Creatinine, Blood 0.83 mg/dL (0.40-1.00); Globulin, Blood 3.1 g/dL (2.2-4.0); Glomerular Filtration Rate >60 (60-); Glucose, Blood 113 mg/dL (70-99); Potassium, Blood 3.4 mmol/L (3.5-5.5); Sodium, Blood 141 mmol/L (136-145)
[2019-10-06 01:01] LABS: Adenovirus Not Detected (NOT DETECT); Bordetella pertussis Not Detected (NOT DETECT); Chlamydophila pneumoniae Not Detected (NOT DETECT); Coronavirus 229E Not Detected (NOT DETECT); Coronavirus HKU1 Not Detected (NOT DETECT); Coronavirus NL63 Not Detected (NOT DETECT); Coronavirus OC43 Not Detected (NOT DETECT); Human Metapneumovirus Not Detected (NOT DETECT); Human Rhinovirus/Enterovirus Not Detected (NOT DETECT); Influenza A Not Detected (NOT DETECT); Influenza A/2009-H1 Not Detected (NOT DETECT); Influenza A/H1 Not Detected (NOT DETECT); Influenza A/H3 Not Detected (NOT DETECT); Influenza B Not Detected (NOT DETECT); Mycoplasma pneumoniae Not Detected (NOT DETECT); Parainfluenza Virus 1 Not Detected (NOT DETECT); Parainfluenza Virus 2 Not Detected (NOT DETECT); Parainfluenza Virus 3 Not Detected (NOT DETECT); Parainfluenza Virus 4 Not Detected (NOT DETECT); Respiratory Syncytial Virus Not Detected (NOT DETECT)
[2019-10-06 02:24] LABS: Adenovirus F 40/41 Not Detected (NOT DETECT); Astrovirus Not Detected (NOT DETECT); Campylobacter Sp Not Detected (NOT DETECT); Cryptosporidium Not Detected (NOT DETECT); Cyclospora Cayetanensis Not Detected (NOT DETECT); E. Coli O157 Not Detected (NOT DETECT); Entamoeba Histolytica Not Detected (NOT DETECT); Enteroaggregative E. coli-EAEC Not Detected (NOT DETECT); Enteropathogenic E. coli-EPEC Not Detected (NOT DETECT); Enterotoxigenic E. coli-ETEC Not Detected (NOT DETECT); Giardia Lamblia Not Detected (NOT DETECT); Norovirus GI/GII Not Detected (NOT DETECT); Plesiomonas Shigelloides Not Detected (NOT DETECT); Rotavirus A Not Detected (NOT DETECT); Salmonella Sp Not Detected (NOT DETECT); Sapovirus Not Detected (NOT DETECT); Shiga Toxin-prod E. coli-STEC Not Detected (NOT DETECT); Shigella/Enteroin E. coli-EIEC Not Detected (NOT DETECT); Vibrio Cholerae Not Detected (NOT DETECT); Vibrio Sp Not Detected (NOT DETECT); Yersinia Enterocolitica Not Detected (NOT DETECT)
[2019-10-07] MEDS ORDERED: AZIT250 PO (12:10)
== END 2019-10-07 12:45 | disposition home or self-care (01) | DRG 189 ==
LOC: ER 15:58 → MEDS 19:44 → ER 21:46 → MEDS 21:52
PROVIDERS: Physician Assistant; ADMIT Internal Medicine
DX: J96.01 Acute respiratory failure with hypoxia (principal); J45.51 Severe persistent asthma with (acute) exacerbation; Z68.41 Body mass index [BMI] 40.0-44.9, adult; F32.9 Major depressive disorder, single episode, unspecified; F41.9 Anxiety disorder, unspecified; M79.7 Fibromyalgia; E66.01 Morbid (severe) obesity due to excess calories; Z79.52 Long term (current) use of systemic steroids; Z79.899 Other long term (current) drug therapy
CPT/HCPCS: 0097U; 0099U; 36415; 71046; 80053; 85025; 94640; 94644; 94760; 96361; 96365; 96367; 96375; 96376; 99285-25; C9113; G0378; J1956; J2920; J2930; J3010; J3475; J7030; J7050; Q0163

== ENCOUNTER 2019-11-21 20:34 | Inpatient (IN) | payer OTHER ==
[~2019-11-21] VITALS: Ht 177.8 cm; Wt 129.7 kg
[~2019-11-21 20:34] MED LIST changes: +DICL75ER PO; +FURO20 PO; +MAGNESIUM OXID500 MG PO; +TIZA4 PO
[2019-11-21 21:00] LABS: PCO2 Arterial 33.6 mmHg (35-45); PO2 Arterial 79.4 mmHg (80-100); pH Blood Arterial 7.44 (7.35-7.45)
[2019-11-21 21:00] LABS: BASOPHILS ABSOLUTE AUTO 0.05 K/mm3 (0.00-0.23); BASOPHILS PERCENT AUTO 0 % (0-2); EOSINOPHILS PERCENT AUTO 0 % (0-6); Hematocrit 45.3 % (33.0-51.0); Hemoglobin 14.8 g/dL (11.5-16.0); IMMATURE GRAN ABSOLUTE AUTO 0.31 K/mm3 (0.00-0.10); IMMATURE GRAN PERCENT AUTO 2 % (0-1); LYMPHOCYTES ABSOLUTE AUTO 1.09 K/mm3 (0.84-5.20); LYMPHOCYTES PERCENT AUTO 8 % (21-46); MONOCYTES ABSOLUTE AUTO 0.57 K/mm3 (0.16-1.47); MONOCYTES PERCENT AUTO 4 % (4-13); Mean Corpuscular HGB 30.1 pg (26.0-34.0); Mean Corpuscular HGB Conc 32.7 g/dL (31.5-36.5); Mean Corpuscular Volume 92 fL (80-100); Mean Platelet Volume 10.5 fL (9.1-12.4); NEUTROPHILS ABSOLUTE AUTO 12.09 K/mm3 (1.96-9.15); NEUTROPHILS PERCENT AUTO 86 % (41-73); Platelet Count 266 K/mm3 (150-400); RDW Coefficient Variation 13.8 % (11.7-14.2); RDW Standard Deviation 46.7 fL (35.1-46.3); Red Blood Cell Count 4.91 M/mm3 (3.80-5.20); White Blood Cell Count 14.11 K/mm3 (4.00-11.30)
[2019-11-21 21:18] LABS: Alanine Aminotransfer (ALT/SGP 61 U/L (12-78); Albumin/Globulin Ratio 1.3 (0.8-1.8); Alk Phos 79 U/L (50-136); Anion Gap 8 mmol/L (6-16); Aspartate Aminotrans (AST/SGOT 19 U/L (12-37); Bilirubin, Total 0.4 mg/dL (0.1-1.0); Blood Urea Nitrogen 15 mg/dL (8-24); Bun/Creatinine Ratio 18.1 (12.0-20.0); CO2, Blood 24 mmol/L (21-32); Calcium, Blood 9.1 mg/dL (8.5-10.1); Chloride, Blood 110 mmol/L (98-108); Creatinine, Blood 0.83 mg/dL (0.40-1.00); Globulin, Blood 3.1 g/dL (2.2-4.0); Glomerular Filtration Rate >60 (60-); Glucose, Blood 135 mg/dL (70-99); Potassium, Blood 3.7 mmol/L (3.5-5.5); Sodium, Blood 142 mmol/L (136-145); Total Protein, Blood 7.1 g/dL (6.4-8.2)
[2019-11-21 23:26] LABS: Adenovirus Not Detected (NOT DETECT); Bordetella pertussis Not Detected (NOT DETECT); Chlamydophila pneumoniae Not Detected (NOT DETECT); Coronavirus 229E Not Detected (NOT DETECT); Coronavirus HKU1 Not Detected (NOT DETECT); Coronavirus NL63 Not Detected (NOT DETECT); Coronavirus OC43 Not Detected (NOT DETECT); Human Metapneumovirus Not Detected (NOT DETECT); Human Rhinovirus/Enterovirus Not Detected (NOT DETECT); Influenza A/2009-H1 Not Detected (NOT DETECT); Influenza A/H1 Not Detected (NOT DETECT); Influenza A/H3 Not Detected (NOT DETECT); Influenza B Not Detected (NOT DETECT); Mycoplasma pneumoniae Not Detected (NOT DETECT); Parainfluenza Virus 1 Not Detected (NOT DETECT); Parainfluenza Virus 2 Not Detected (NOT DETECT); Parainfluenza Virus 3 Not Detected (NOT DETECT); Parainfluenza Virus 4 Not Detected (NOT DETECT); Respiratory Syncytial Virus Not Detected (NOT DETECT)
[2019-11-22 03:49] LABS: BASOPHILS ABSOLUTE AUTO 0.02 K/mm3 (0.00-0.23); BASOPHILS PERCENT AUTO 0 % (0-2); EOSINOPHILS PERCENT AUTO 0 % (0-6); Hematocrit 41.8 % (33.0-51.0); Hemoglobin 13.7 g/dL (11.5-16.0); IMMATURE GRAN ABSOLUTE AUTO 0.26 K/mm3 (0.00-0.10); IMMATURE GRAN PERCENT AUTO 2 % (0-1); LYMPHOCYTES ABSOLUTE AUTO 0.83 K/mm3 (0.84-5.20); LYMPHOCYTES PERCENT AUTO 6 % (21-46); MONOCYTES ABSOLUTE AUTO 0.12 K/mm3 (0.16-1.47); MONOCYTES PERCENT AUTO 1 % (4-13); Mean Corpuscular HGB Conc 32.8 g/dL (31.5-36.5); Mean Corpuscular Volume 92 fL (80-100); Mean Platelet Volume 10.3 fL (9.1-12.4); NEUTROPHILS ABSOLUTE AUTO 12.79 K/mm3 (1.96-9.15); NEUTROPHILS PERCENT AUTO 91 % (41-73); Platelet Count 231 K/mm3 (150-400); RDW Coefficient Variation 13.7 % (11.7-14.2); RDW Standard Deviation 46.1 fL (35.1-46.3); Red Blood Cell Count 4.57 M/mm3 (3.80-5.20); White Blood Cell Count 14.02 K/mm3 (4.00-11.30)
[2019-11-22 04:03] LABS: Anion Gap 8 mmol/L (6-16); Blood Urea Nitrogen 11 mg/dL (8-24); Bun/Creatinine Ratio 15.6 (12.0-20.0); CO2, Blood 23 mmol/L (21-32); Calcium, Blood 7.9 mg/dL (8.5-10.1); Chloride, Blood 111 mmol/L (98-108); Glomerular Filtration Rate >60 (60-); Glucose, Blood 153 mg/dL (70-99); Potassium, Blood 4.1 mmol/L (3.5-5.5); Sodium, Blood 142 mmol/L (136-145)
--- NOTE | 2019-11-22 05:31 | NUR ---
SHIFT SUMMARY: PATIENT ARRIVED TO [facility] AT APPROX 0100 11/22/19. PATIENT ALERT, ORIENTED AND ABLE TO AMBULATE TO BED FROM [facility] WITH SBA, SKIN IS C/D/I, PATIENT O2 SATURATION IS 89% ON RA. ADMISSION COMPLETED AND PATIENT ORIENTED TO ROOM, CALL LIGHT AND HOSPITAL POLICIES, PATIENT COMPLIANT WITH CARE AND USING CALL LIGHT APPROPRIATLY. PATIENT C/O SHARP PAINS WITH INSPIRATION ON RIGHT SIDE/AUXILLARY AREA, STATES THIS IS BASELINE FOR HER WHEN HER ASTHMA 'FLARES UP', BP 163/113; MD NOTIFIED AND ORDERS RECIEVED. NO OTHER ISSUES NOTED, ALL OTHER VSS, PATIENT BLOOD PRESSURE IMPROVED AFTER MEDICATIONS ADMINISTERED PER MD ORDER. PATIENT ASKED TO HOLD MORNING MEDICATIONS UNTIL AFTER 0700 SO SHE COULD SLEEP FOR 2 HOURS, WILL NOTIFY ONCOMING NURSE.
--- NOTE | 2019-11-22 07:13 | NUR ---
ASSUMED PATIENT CARE. PATIENT RESTING COMFORTABLY IN BED, NO SIGNS OF ACUTE DISTRESS. WCTM.
--- NOTE | 2019-11-22 12:45 | NUR ---
PATIENT TAKEN TO GET CHEST XRAY.
--- NOTE | 2019-11-22 18:39 | NUR ---
NO ACUTE EVENTS THIS SHIFT. PATIENT ENDORSES DECREASED WORK OF BREATHING THROUGH DAY, PATIENT'S UPPER LUNG SOUNDS IMPROVED THIS SHIFT. PATIENT ENDORSES 8-9/10 PAIN THIS SHIFT IN RIGHT SIDE, FENTANYL WAS EFFECTIVE IN MANAGING THIS PAIN. ON ROOM AIR THIS SHIFT, MAINTAINED O2 SATURATION IN THE UPPER 80S-LOW 90S. PATIENT SHARED THAT THIS IS HER BASELINE O2 SATURATION. LACTIC ACID LAST NIGHT AND CREMATORY OPERATOR TRENDED IN DESIRED DIRECTION. ENDORSES THAT RT TREATMENTS ARE HELPING.
--- NOTE | 2019-11-22 19:11 | NUR ---
RELINQUISHED PATIENT CARE.
--- NOTE | 2019-11-23 03:37 | NUR ---
SHIFT SUMMARY: PATIENT LUNG SOUNDS IMPROVED THIS SHIFT, SLEPT WELL, VSS, HYDRALAZINE X1 THIS SHIFT. PAIN MEDICATION AND KPAD USED FOR RIGHT SIDED PAIN. NO OTHER ISSUES NOTED, BED LOW AND LOCKED
[2019-11-23 04:30] LABS: BASOPHILS ABSOLUTE AUTO 0.04 K/mm3 (0.00-0.23); BASOPHILS PERCENT AUTO 0 % (0-2); EOSINOPHILS PERCENT AUTO 0 % (0-6); Hematocrit 43.4 % (33.0-51.0); Hemoglobin 13.6 g/dL (11.5-16.0); IMMATURE GRAN ABSOLUTE AUTO 0.58 K/mm3 (0.00-0.10); IMMATURE GRAN PERCENT AUTO 3 % (0-1); LYMPHOCYTES ABSOLUTE AUTO 1.07 K/mm3 (0.84-5.20); LYMPHOCYTES PERCENT AUTO 5 % (21-46); MONOCYTES ABSOLUTE AUTO 0.95 K/mm3 (0.16-1.47); MONOCYTES PERCENT AUTO 5 % (4-13); Mean Corpuscular HGB 29.4 pg (26.0-34.0); Mean Corpuscular HGB Conc 31.3 g/dL (31.5-36.5); Mean Corpuscular Volume 94 fL (80-100); Mean Platelet Volume 10.9 fL (9.1-12.4); NEUTROPHILS ABSOLUTE AUTO 18.07 K/mm3 (1.96-9.15); NEUTROPHILS PERCENT AUTO 87 % (41-73); Platelet Count 251 K/mm3 (150-400); RDW Coefficient Variation 13.9 % (11.7-14.2); RDW Standard Deviation 47.5 fL (35.1-46.3); Red Blood Cell Count 4.62 M/mm3 (3.80-5.20); White Blood Cell Count 20.71 K/mm3 (4.00-11.30)
[2019-11-23 04:54] LABS: Anion Gap 7 mmol/L (6-16); Blood Urea Nitrogen 16 mg/dL (8-24); Bun/Creatinine Ratio 21.4 (12.0-20.0); CO2, Blood 24 mmol/L (21-32); Calcium, Blood 8.7 mg/dL (8.5-10.1); Chloride, Blood 111 mmol/L (98-108); Creatinine, Blood 0.75 mg/dL (0.40-1.00); Glomerular Filtration Rate >60 (60-); Glucose, Blood 128 mg/dL (70-99); Potassium, Blood 3.8 mmol/L (3.5-5.5); Sodium, Blood 142 mmol/L (136-145)
--- NOTE | 2019-11-23 07:24 | NUR ---
ASSUMED PATIENT CARE. PATIENT SITTING COMFORTABLY IN BED, RT IN ROOM CONDUCTING BREATHING TREATMENT. NO SIGNS OF ACUTE RESPIRATORY DISTRESS. WCTM.
[2019-11-23] MEDS ORDERED: ACET325 PO (09:37)
[2019-11-23] MEDS ORDERED: Culturelle1 CAP PO (09:38)
[2019-11-23] MEDS ORDERED: AZIT500 PO (09:38)
[2019-11-23] MEDS ORDERED: CEFU500T30 PO (09:39)
[2019-11-23] MEDS ORDERED: DOCU100 PO (09:39)
[2019-11-23] MEDS ORDERED: Prednisone10 MG PO (09:40)
--- NOTE | 2019-11-23 10:18 | NUR ---
PATIENT PROVIDED DISCHARGE INFO REGARDING REASONS TO RETURN TO HOSPITAL, MEDICATION INSTRUCTIONS, AND TO CALL AND FOLLOW UP FOR APPOINTMENT WITH PRIMARY CARE PROVIDER. MESSAGE WAS LEFT ON OFFICE PHONE. PATIENT VERBALIZED UNDERSTANDING OF INSTRUCTIONS. NO SIGNS OF ACUTE RESPIRATORY DISTRESS.
--- NOTE | 2019-11-23 10:25 | NUR ---
PATIENT DISCHARGED AND DEPARTED FROM UNIT, AMBULATING INDEPENDENTLY, NO SIGNS OF ACUTE DISTRESS.
--- NOTE | 2019-11-23 10:33 | NUR ---
PT REQUESTED IV PAIN MEDICATION PRIOR TO DC AND WAS TOLD NO DUE TO BEING UNABLE TO MONITOR AFTER DISCHARGE. PT BEGAN CRYING, GOT DRESSED AND WANTED TO LEAVE WITHOUT ESCORT. SPOKE WITH DR HOPE WHO STATES SHE INSTRUCTED PT TO TAKE THE ANTIINFLAMMATORY THAT SHE ALREADY HAS A PRESCRIPTION FOR AND WAS ASKED FOR ORAL PAIN MEDS BY PATIENT WELL. CALLED PT AND LEFT A MESSAGE TO CALL BACK DUE TO DR HOPE WANTING US TO REITERATE TO USE HER HOME ANTIINFLAMMATORY AND MAY DOUBLE UP FOR THE NEXT FEW DAYS. AWAITING CALL BACK FROM PT.
== END 2019-11-23 10:26 | disposition home or self-care (01) | DRG 189 ==
LOC: ER 20:34 → ERHOLD 20:35 → PCU 11-22 03:10
PROVIDERS: Emergency Medicine; Internal Medicine; Nurse Practitioner Acute Care; Physician Assistant; ADMIT Internal Medicine
DX: J96.01 Acute respiratory failure with hypoxia (principal); J18.9 Pneumonia, unspecified organism; S22.31XA Fracture of one rib, right side, initial encounter for closed fracture; J45.51 Severe persistent asthma with (acute) exacerbation; Z68.41 Body mass index [BMI] 40.0-44.9, adult; E66.01 Morbid (severe) obesity due to excess calories; K21.9 Gastro-esophageal reflux disease without esophagitis; M79.7 Fibromyalgia; F41.8 Other specified anxiety disorders
CPT/HCPCS: 0099U; 36415; 36600; 71045; 71046; 80048; 80053; 82803; 83605; 85025; 94640; 94644; 94760; 94761; 94762; 96365; 96366; 96367; 96368; 96375; 96376; 99285-25; C9113; G0378; J0360; J0456; J0696; J1650; J1885; J2930; J3010; J3475; J3480; J7030; J7050

== ENCOUNTER 2019-12-03 15:41 | Inpatient (IN) | payer OTHER ==
[~2019-12-03] VITALS: Ht 167.6 cm; Wt 128.9 kg
[~2019-12-03 15:41] MED LIST changes: +ACET325 PO; +CEFU500T30 PO; +Culturelle1 CAP PO; +DOCU100 PO
[2019-12-03 16:16] LABS: BASOPHILS ABSOLUTE AUTO 0.07 K/mm3 (0.00-0.23); BASOPHILS PERCENT AUTO 0 % (0-2); EOSINOPHILS PERCENT AUTO 2 % (0-6); Hematocrit 45.9 % (33.0-51.0); Hemoglobin 14.7 g/dL (11.5-16.0); IMMATURE GRAN ABSOLUTE AUTO 0.59 K/mm3 (0.00-0.10); IMMATURE GRAN PERCENT AUTO 3 % (0-1); LYMPHOCYTES PERCENT AUTO 17 % (21-46); MONOCYTES ABSOLUTE AUTO 1.06 K/mm3 (0.16-1.47); MONOCYTES PERCENT AUTO 6 % (4-13); Mean Corpuscular HGB 30.1 pg (26.0-34.0); Mean Corpuscular Volume 94 fL (80-100); NEUTROPHILS ABSOLUTE AUTO 12.19 K/mm3 (1.96-9.15); NEUTROPHILS PERCENT AUTO 71 % (41-73); Platelet Count 216 K/mm3 (150-400); RDW Coefficient Variation 13.5 % (11.7-14.2); RDW Standard Deviation 47.6 fL (35.1-46.3); Red Blood Cell Count 4.89 M/mm3 (3.80-5.20); White Blood Cell Count 17.11 K/mm3 (4.00-11.30)
[2019-12-03 16:34] LABS: Alanine Aminotransfer (ALT/SGP 109 U/L (12-78); Albumin, Blood 3.7 g/dL (3.4-5.0); Albumin/Globulin Ratio 1.1 (0.8-1.8); Alk Phos 106 U/L (50-136); Anion Gap 5 mmol/L (6-16); Aspartate Aminotrans (AST/SGOT 33 U/L (12-37); Bilirubin, Total 0.5 mg/dL (0.1-1.0); Blood Urea Nitrogen 10 mg/dL (8-24); Bun/Creatinine Ratio 14.3 (12.0-20.0); CO2, Blood 27 mmol/L (21-32); Chloride, Blood 107 mmol/L (98-108); Globulin, Blood 3.3 g/dL (2.2-4.0); Glomerular Filtration Rate >60 (60-); Glucose, Blood 101 mg/dL (70-99); Potassium, Blood 3.6 mmol/L (3.5-5.5); Sodium, Blood 139 mmol/L (136-145)
[2019-12-03 16:42] LABS: Influenza A Negative (NEGATIVE); Influenza B Negative (NEGATIVE)
[2019-12-03] MEDS ORDERED: Cetirizine HCl10 MG PO (18:38)
[2019-12-03] MEDS ORDERED: HYDCHL25 PO (18:38)
[2019-12-03] MEDS ORDERED: TUDORZA PRESS400 MCG INH (18:39)
[2019-12-03] MEDS ORDERED: VITAMIN D31000 UNI1 PO (18:39)
--- NOTE | 2019-12-03 21:17 | NUR ---
PATIENT IS A NEW ADMIT FROM THE ED. SELF TRANSFER FROM [facility] TO BED. AXOX 4 AND INDEPENDENT IN THE ROOM. RT IN FOR BREATHING TX. DENIES SOB AND N/V. REPORTS RIGHT RIB PAIN ON ADMIT. IV ABXS INFUSING. PATIENT ORIENTED TO ROOM AND CALL LIGHT SYSTEM. WANTING TO WATCH TV. CALL LIGHT IN REACH. BED IN LOWEST POSITION. WILL CONTINUE TO MONITOR.
--- NOTE | 2019-12-03 23:20 | NUR ---
IV AZITHROMYCIN INFUSED FROM ED AND IV LEVAQUIN COMPLETE. IV SOLU-MEDROL GIVEN PER EMAR. PATIENT RESTING AND TALKING ON PHONE LAST HOUR. NON-PRODUCTIVE COUGH. CALL LIGHT IN REACH.
--- NOTE | 2019-12-04 03:33 | NUR ---
SHIFT SUMMARY PATIENT HAD NO ACUTE CHANGES OBSERVED. AXOX 4 AND INDEPENDENT IN THE ROOM. PIV REMAINS INTACT. IV ABXS INFUSED. RT IN FOR BREATHING TX. IV SOLU-MEDROL GIVEN PER EMAR. VSS/AFEBRILE. REPORTED R RIB PAIN AND OXYCODONE 5 MG GIVEN PER EMAR. DENIES SOB AND N/V. COOPERATIVE WITH CARE. CALL LIGHT IN REACH. BED IN LOWEST POSITION. WILL CONTINUE TO MONITOR UNTIL DAY SHIFT NURSE ASSUMES CARE.
[2019-12-04 05:18] LABS: BASOPHILS ABSOLUTE AUTO 0.08 K/mm3 (0.00-0.23); BASOPHILS PERCENT AUTO 1 % (0-2); EOSINOPHILS ABSOLUTE AUTO 0.01 K/mm3 (0.00-0.68); EOSINOPHILS PERCENT AUTO 0 % (0-6); Hematocrit 44.7 % (33.0-51.0); Hemoglobin 14.3 g/dL (11.5-16.0); IMMATURE GRAN ABSOLUTE AUTO 0.64 K/mm3 (0.00-0.10); IMMATURE GRAN PERCENT AUTO 5 % (0-1); LYMPHOCYTES ABSOLUTE AUTO 0.63 K/mm3 (0.84-5.20); LYMPHOCYTES PERCENT AUTO 4 % (21-46); MONOCYTES ABSOLUTE AUTO 0.18 K/mm3 (0.16-1.47); MONOCYTES PERCENT AUTO 1 % (4-13); Mean Corpuscular HGB 30.1 pg (26.0-34.0); Mean Corpuscular Volume 94 fL (80-100); Mean Platelet Volume 10.1 fL (9.1-12.4); NEUTROPHILS ABSOLUTE AUTO 12.81 K/mm3 (1.96-9.15); NEUTROPHILS PERCENT AUTO 89 % (41-73); Platelet Count 212 K/mm3 (150-400); RDW Coefficient Variation 13.6 % (11.7-14.2); RDW Standard Deviation 46.8 fL (35.1-46.3); Red Blood Cell Count 4.75 M/mm3 (3.80-5.20); White Blood Cell Count 14.35 K/mm3 (4.00-11.30)
[2019-12-04 05:39] LABS: Anion Gap 7 mmol/L (6-16); Blood Urea Nitrogen 10 mg/dL (8-24); Bun/Creatinine Ratio 15.1 (12.0-20.0); CO2, Blood 25 mmol/L (21-32); Calcium, Blood 8.9 mg/dL (8.5-10.1); Chloride, Blood 106 mmol/L (98-108); Creatinine, Blood 0.66 mg/dL (0.40-1.00); Glomerular Filtration Rate >60 (60-); Glucose, Blood 165 mg/dL (70-99); Potassium, Blood 4.2 mmol/L (3.5-5.5); Sodium, Blood 138 mmol/L (136-145)
--- NOTE | 2019-12-04 19:05 | NUR ---
a+o, needs new iv started but not willing to allow it, will talk to noc nurse to see if they can convince her to do it, call light in reach, sitting up waiting for test results, sputum sample sent to lab, lulu presley, bsr shared with returning noc nurse
--- NOTE | 2019-12-05 05:14 | NUR ---
SUMMARY PT HAD SOME RIB DISCOMFORT EARLY IN SHIFT. PT TX PER EMAR W/ RELIEF. PT HAD NO OTHER ISSUES NOTED. PT WAS UP LATE WATCHING TV. PT CURRENTLY SLEEPING IN NO DISTRESS. CALL LIGHT IN REACH.
[2019-12-05] MEDS ORDERED: GUAI600T33 PO (13:44)
[2019-12-05] MEDS ORDERED: Culturelle1 CAP PO (13:45)
[2019-12-05] MEDS ORDERED: LEVO750 PO (13:46)
[2019-12-05] MEDS ORDERED: Prednisone10 MG PO (13:47)
--- NOTE | 2019-12-05 14:17 | NUR ---
PT DISCHARGED FROM THE UNIT AND 141, LEFT VIA WHEELCHAIR. IV REMOVED. MEDICATIONS FAXED TO [facility] IN [place]. FOLLOW UP APT SCHEDULED. PT REQUEST TO SCHEDULE OWN PULMONOLY APT DUE TO SWITCHING PROVIDERS. NO QUESTIONS AT THIS TIME
== END 2019-12-05 14:15 | DRG 194 ==
LOC: ER 15:41 → MEDS 19:02
PROVIDERS: Nurse Practitioner; ADMIT Internal Medicine
DX: J18.9 Pneumonia, unspecified organism (principal); J45.51 Severe persistent asthma with (acute) exacerbation; J44.0 Chronic obstructive pulmonary disease with (acute) lower respiratory infection; Z68.42 Body mass index [BMI] 45.0-49.9, adult; F41.8 Other specified anxiety disorders; M79.7 Fibromyalgia; K21.9 Gastro-esophageal reflux disease without esophagitis; E66.01 Morbid (severe) obesity due to excess calories
CPT/HCPCS: 36415; 71045; 80048; 80053; 83605; 84145; 85025; 87804; 94640; 94760; 96365; 96367; 99285-25; C9113; J0456; J0696; J1956; J2930; J7050

== ENCOUNTER 2020-01-08 17:48 | Inpatient (IN) | payer OTHER ==
[~2020-01-08] VITALS: Ht 177.8 cm; Wt 130.6 kg
[~2020-01-08 17:48] MED LIST changes: -ALBU90OI INH; -CYCL10 PO; -FURO20 PO; +GUAI600T33 PO; +LEVO750 PO; -MONT10T PO; -Prozac20 MG PO; -TIZA4 PO
[2020-01-08 19:12] LABS: BASOPHILS ABSOLUTE AUTO 0.13 K/mm3 (0.00-0.23); BASOPHILS PERCENT AUTO 1 % (0-2); EOSINOPHILS PERCENT AUTO 3 % (0-6); Hematocrit 46.3 % (33.0-51.0); Hemoglobin 15.2 g/dL (11.5-16.0); IMMATURE GRAN ABSOLUTE AUTO 0.59 K/mm3 (0.00-0.10); IMMATURE GRAN PERCENT AUTO 3 % (0-1); LYMPHOCYTES ABSOLUTE AUTO 2.69 K/mm3 (0.84-5.20); LYMPHOCYTES PERCENT AUTO 15 % (21-46); MONOCYTES ABSOLUTE AUTO 0.92 K/mm3 (0.16-1.47); MONOCYTES PERCENT AUTO 5 % (4-13); Mean Corpuscular HGB 30.7 pg (26.0-34.0); Mean Corpuscular HGB Conc 32.8 g/dL (31.5-36.5); Mean Corpuscular Volume 94 fL (80-100); Mean Platelet Volume 10.2 fL (9.1-12.4); NEUTROPHILS ABSOLUTE AUTO 12.88 K/mm3 (1.96-9.15); NEUTROPHILS PERCENT AUTO 73 % (41-73); Platelet Count 266 K/mm3 (150-400); RDW Coefficient Variation 13.5 % (11.7-14.2); RDW Standard Deviation 45.4 fL (35.1-46.3); Red Blood Cell Count 4.95 M/mm3 (3.80-5.20); White Blood Cell Count 17.71 K/mm3 (4.00-11.30)
[2020-01-08 19:23] LABS: Anion Gap 6 mmol/L (6-16); Blood Urea Nitrogen 9 mg/dL (8-24); Bun/Creatinine Ratio 11.7 (12.0-20.0); CO2, Blood 26 mmol/L (21-32); Chloride, Blood 107 mmol/L (98-108); Creatinine, Blood 0.77 mg/dL (0.40-1.00); Glomerular Filtration Rate >60 (60-); Glucose, Blood 91 mg/dL (70-99); Potassium, Blood 3.5 mmol/L (3.5-5.5); Sodium, Blood 139 mmol/L (136-145)
[2020-01-08] MEDS ORDERED: ALBU90OI INH (20:23)
[2020-01-08] MEDS ORDERED: COMBIVENT RESPIM4 GM INH (20:24)
[2020-01-08] MEDS ORDERED: VITAMIN D3125 MCG PO (20:24)
[2020-01-08] MEDS ORDERED: TRAM50 PO (20:25)
[2020-01-08] MEDS ORDERED: CYCL10 PO (20:26)
[2020-01-08] MEDS ORDERED: Duoneb 2.5-0.5 M3 ML NEB (20:28)
[2020-01-08] MEDS ORDERED: PRED20 PO (20:28)
[2020-01-08] MEDS ORDERED: BUSP10 PO (20:29)
[2020-01-08] MEDS ORDERED: TIZA4 PO (20:29)
[2020-01-08] MEDS ORDERED: BUDE6HFA INH (20:29)
[2020-01-08] MEDS ORDERED: Cetirizine HCl10 MG PO (20:29)
[2020-01-08] MEDS ORDERED: FURO20 PO (20:29)
[2020-01-08] MEDS ORDERED: HYDCHL25 PO (20:30)
[2020-01-08] MEDS ORDERED: MONT10T PO (20:30)
[2020-01-08] MEDS ORDERED: Prozac20 MG PO (20:30)
[2020-01-08] MEDS ORDERED: OMEP20ER PO (20:31)
[2020-01-08] MEDS ORDERED: TUDORZA PRESS400 MCG INH (20:32)
--- NOTE | 2020-01-08 22:25 | NUR ---
PATIENT ARRIVED TO ICU 7 VIA GURNEY FROM ED WITH DX OF ASTHMA. PATIENT ABLE TO TRANSFER TO BED WITH MIN ASSIST WITH 4L/NC. ICU MONITORS PLACED. PATIENT AGREES TO CALL FOR ASSISTANCE WITH GETTING UP TO BSC. SNACK GIVEN WITH PO MEDICATIONS, PATIENT CHAIM WELL. PATIENT ABLE TO HOLD FULL CONVERSATION, YET SOB WITH SLIGHT ACTIVITY.
[2020-01-09 00:03] LABS: Adenovirus Not Detected (NOT DETECT); Coronavirus 229E Not Detected (NOT DETECT); Coronavirus HKU1 Not Detected (NOT DETECT); Coronavirus NL63 Not Detected (NOT DETECT); Coronavirus OC43 Not Detected (NOT DETECT); Human Metapneumovirus Not Detected (NOT DETECT)
[2020-01-09 00:04] LABS: Bordetella pertussis Not Detected (NOT DETECT); Chlamydophila pneumoniae Not Detected (NOT DETECT); Human Rhinovirus/Enterovirus Not Detected (NOT DETECT); Influenza A/2009-H1 Not Detected (NOT DETECT); Influenza A/H1 Not Detected (NOT DETECT); Influenza A/H3 Not Detected (NOT DETECT); Influenza B Not Detected (NOT DETECT); Mycoplasma pneumoniae Not Detected (NOT DETECT); Parainfluenza Virus 1 Not Detected (NOT DETECT); Parainfluenza Virus 2 Not Detected (NOT DETECT); Parainfluenza Virus 3 Not Detected (NOT DETECT); Parainfluenza Virus 4 Not Detected (NOT DETECT); Respiratory Syncytial Virus Not Detected (NOT DETECT)
[2020-01-09] MEDS ORDERED: MULTI-VITAMIN1 EAC2 PO (00:53)
[2020-01-09] MEDS ORDERED: MAGNESIUM OXID500 MG PO (00:54)
[2020-01-09] MEDS ORDERED: FERSU300 PO (00:55)
--- NOTE | 2020-01-09 01:30 | NUR ---
PATIENT SLEEPING, BIOX DROPPING TO 88-90% OXYGEN TITRATED UP TO 6L/NC TO KEEP OXYGEN SATS ABOVE 90%
[2020-01-09 03:34] LABS: BASOPHILS ABSOLUTE AUTO 0.06 K/mm3 (0.00-0.23); BASOPHILS PERCENT AUTO 0 % (0-2); EOSINOPHILS PERCENT AUTO 0 % (0-6); Hematocrit 45.1 % (33.0-51.0); Hemoglobin 14.5 g/dL (11.5-16.0); IMMATURE GRAN ABSOLUTE AUTO 0.67 K/mm3 (0.00-0.10); IMMATURE GRAN PERCENT AUTO 4 % (0-1); LYMPHOCYTES ABSOLUTE AUTO 0.56 K/mm3 (0.84-5.20); LYMPHOCYTES PERCENT AUTO 3 % (21-46); MONOCYTES ABSOLUTE AUTO 0.11 K/mm3 (0.16-1.47); MONOCYTES PERCENT AUTO 1 % (4-13); Mean Corpuscular HGB 30.1 pg (26.0-34.0); Mean Corpuscular HGB Conc 32.2 g/dL (31.5-36.5); Mean Corpuscular Volume 94 fL (80-100); Mean Platelet Volume 10.2 fL (9.1-12.4); NEUTROPHILS ABSOLUTE AUTO 16.22 K/mm3 (1.96-9.15); NEUTROPHILS PERCENT AUTO 92 % (41-73); Platelet Count 271 K/mm3 (150-400); RDW Coefficient Variation 13.3 % (11.7-14.2); RDW Standard Deviation 45.3 fL (35.1-46.3); Red Blood Cell Count 4.82 M/mm3 (3.80-5.20); White Blood Cell Count 17.62 K/mm3 (4.00-11.30)
[2020-01-09 03:51] LABS: Anion Gap 8 mmol/L (6-16); Blood Urea Nitrogen 8 mg/dL (8-24); Bun/Creatinine Ratio 10.8 (12.0-20.0); CO2, Blood 24 mmol/L (21-32); Calcium, Blood 8.5 mg/dL (8.5-10.1); Chloride, Blood 107 mmol/L (98-108); Creatinine, Blood 0.74 mg/dL (0.40-1.00); Glomerular Filtration Rate >60 (60-); Glucose, Blood 148 mg/dL (70-99); Potassium, Blood 4.3 mmol/L (3.5-5.5); Sodium, Blood 139 mmol/L (136-145)
--- NOTE | 2020-01-09 06:13 | NUR ---
SUMMARY PATIENT SLEEPING OFF AND ON WITH 7L/NC HUMIDIFIED OXYGEN IN PLACE. INSP AND EXP WHEEZES T/O CONTINUES WITH INCREASED SOB AND WHEEZING WITH ACTIVITY. AFTER AMBULATING TO TOILET FOR BM, PATIENT BECOMING ANXIOUS AND C/O NAUSEA ORDER OBTAINED FOR ATIVAN AND ZOFRAN GIVEN WITH GOOD RESULTS. NO OTHER COMPLAINTS T/O NIGHT.
--- NOTE | 2020-01-09 08:02 | NUR ---
CARE ASSUMED ASSESSMENT COMPLETED. LS WHEEZY T/O, SPO2 91% ON 4.5L/NC AND AFTER NEB TX. HR 104 SIT, OTHER VSS. LR INFUSING AT 75ML/HR, PT RESTING WITH EYES CLOSED, WOKEN FOR ASSESSMENT, STATES SHE DOES NOT WANT AN ABG UNLESS ABSOLUTELY NECESSARY. WILL DISCUSS THIS WITH DR. CARREON WHEN SHE ARRIVES. PT WENT BACK TO SLEEP AFTER ASSESSMENT, IS SNORING LIGHTLY AT THIS TIME, NO S/SX DISTRESS NOTED.
--- NOTE | 2020-01-09 12:55 | NUR ---
UPDATE PT AWAKE, ALERT AND ORIENTED, PLEASANT AND COOPERATIVE. VS REMAIN STABLE, HR 100-105 SIT. PT UP TO BSC TWICE TO VOID WITH MINIMAL SOB, DENIES PAIN. LS REMAIN WHEEZY T/O BUT ARE QUIETER THAN AT THIS MORNINGS ASSESSMENT, PT STATES SHE FEELS SHE IS IMPROVING. DENIES NEEDS AT THIS TIME.
--- NOTE | 2020-01-09 17:43 | NUR ---
END OF SHIFT PT REMAINS ALERT AND ORIENTED, DENIES PAIN, WAS MEDICATED X1 FOR HEADACHE WITH GOOD RESULTS. SPO2 93% AT THIS TIME, O2 3L/NC, PT SITTING UP IN BED EATING. WHEEZES REMAIN PRESENT IN ALL LUNG KIM BUT ARE LESS PRONOUNCED THAN AT SHIFT CHANGE. PT CONTINUES TO REPORT IMPROVED WORK OF BREATHING AND STATES SHE FEELS LIKE HER CHEST IS "LOOSENING," COUGH LOOSE THIS AFTERNOON. SOB MINIMAL WHEN UP TO BSC TODAY. HR REMAINS TACHYCARDIC, 90'S-115 SIT. PEAK FLOW METER TESTING COMPLETED BY RT, RESULTS 76% BEFORE NEB, 93% AFTER NEB. DR. CARREON AWARE OF RESULTS, DENIES NEED FOR ABG DRAW. PT TO REMAIN ICU STATUS TONIGHTDR. WILL REASSESS TOMORROW. PT TOLERATED MEALS WELL, IS PLEASANT AND COOPERATIVE, PROVIDES SELF CARES AND REPOSITIONS SELF IN BED. WILL CONTINUE TO MONITOR AND REPORT OFF TO ONCOMING SHIFT.
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
[2020-01-10 04:16] LABS: Albumin, Blood 3.9 g/dL (3.4-5.0); Anion Gap 7 mmol/L (6-16); Blood Urea Nitrogen 16 mg/dL (8-24); Bun/Creatinine Ratio 17.1 (12.0-20.0); CO2, Blood 27 mmol/L (21-32); Calcium, Blood 9.2 mg/dL (8.5-10.1); Chloride, Blood 104 mmol/L (98-108); Creatinine, Blood 0.94 mg/dL (0.40-1.00); Glomerular Filtration Rate >60 (60-); Glucose, Blood 131 mg/dL (70-99); Phosphorus, Blood 3.7 mg/dL (2.5-4.9); Potassium, Blood 4.4 mmol/L (3.5-5.5); Sodium, Blood 138 mmol/L (136-145)
--- NOTE | 2020-01-10 06:29 | NUR ---
PT RESTS QUIETLY THROUGHOUT SHIFT, OXYGEN SATURATIONS SLIGHTLY IMPROVED FROM HS, WORK OF BREATHING IS AT PT'S BASELINE, OXYGEN REMAINS AT 2.5 L/MIN VIA NC WITH SATS MID 90S, INSPIRATORY WHEEZES ARE NO LONGER PRESENT, EXPIRATORY WHEEZES ARE STILL PRESENT HOWEVER HAVE DECREASED WITH IMPROVED AIR MOVEMENT NOTED ON AUSCULTATION, COUGH CONTINUES TO BE NONPRODUCTIVE. HEART RATE IMPROVED FROM LOW 100S TO 60-70S, PRESSURES MAINTAIN STABLE, SKIN REMAINS PWD, FULL PULSES X 4 EXTREMITIES. NORMOACTIVE BOWEL TONES CONTINUE, ABD REMAINS SOFT, NO COMPLAINTS OF NAUSEA THIS SHIFT. VOIDS CLEAR YELLOW URINE WITHOUT DIFFICULTY, DID TOLERATE AMBULATION TO TOILET AND BACK TO BED WELL. C/O HEADACHE AT BEGINNING OF SHIFT, DID DECREASE THROUGHOUT SHIFT AND PT CURRENTLY IS REPORTING HEADACHE IS RESOLVED.
--- NOTE | 2020-01-10 07:44 | NUR ---
ASSUMED CARE RECEIVED REPORT FROM SERG GAMBLE. PT IS IN BED ON 1L NC AND RECIEVING A NEB, SATING 92%. ALEJANDRO RT RECENTLY TITRATED DOWN ON THE OXYGEN FROM 3L. SHE STATES SHE FEELS "AT BASELINE". INFORMS ME HER HOME SPO2 BASELINE IS ~89-92%. HR IS SINUS IN THE 80'S. STABLE BP. AFEBRILE. DENIES HEADACHE, PAIN, SOB (CURRENTLY), AND NAUSEA. SHE HAS BEEN GETTING UP OUT OF BED AND TOLERATING IT WELL OPPOSED TO YESTERDAY. SHE IS ALERT AND ORIENTED TO SELF, SITUATION, PLACE, AND TIME. SHE HAS SCD'S ON. BED LOW AND LOCKED. CALL LIGHT WITHIN REACH.
--- NOTE | 2020-01-10 09:01 | NUR ---
UPDATE O2 SATS HAVE BEEN PRIMARILY IN THE 91-93% RANGE OVER THE LAST TWO HOURS ON 1L NC. I TOOK HER OFF THE NC, SO SHE IS CURRENTLY ON ROOM AIR. SOMETIMES WHEN SHE MOVES AND HER SPO2 PLETH IS INCONSISTENT AND IRREGULAR, HER SATS DROP. WILL CONTINUE TO MONITOR.
--- NOTE | 2020-01-10 12:28 | NUR ---
DR ROSADO IN ROOM WITH PATIENT NOW. PT REMAINS ON ROOM AIR, TOLERATING IT WELL.
[2020-01-10] MEDS ORDERED: PRED20 PO (13:03)
[2020-01-10] MEDS ORDERED: GUAI200 PO (13:12)
[2020-01-10] MEDS ORDERED: ACET325 PO (13:14)
--- NOTE | 2020-01-10 13:38 | NUR ---
PT WAS DISCHARGED AND LEFT ICU AT 1335. SHE DENIED SOB. AFEBRILE. ALERT AND ORIENTED X 4.
== END 2020-01-10 13:45 | disposition home or self-care (01) | DRG 189 ==
LOC: ER 17:48 → ICUW 22:03 → ICUE 22:03
PROVIDERS: Internal Medicine; Nurse Practitioner Acute Care; Physician Assistant; ADMIT Internal Medicine
DX: J96.01 Acute respiratory failure with hypoxia (principal); J45.51 Severe persistent asthma with (acute) exacerbation; Z68.41 Body mass index [BMI] 40.0-44.9, adult; R65.10 Systemic inflammatory response syndrome (SIRS) of non-infectious origin without acute organ dysfunction; J44.9 Chronic obstructive pulmonary disease, unspecified; M79.7 Fibromyalgia; E66.9 Obesity, unspecified; K21.9 Gastro-esophageal reflux disease without esophagitis; F41.9 Anxiety disorder, unspecified; F41.1 Generalized anxiety disorder; T38.0X5A Adverse effect of glucocorticoids and synthetic analogues, initial encounter; Y92.9 Unspecified place or not applicable
CPT/HCPCS: 0099U; 36415; 71045; 80048; 80069; 83605; 84145; 85025; 94640; 94644; 94645; 94760; 96365; 96366; 96375; 99285-25; A9270; A9270-GY; J2060; J2405; J2930; J3475; J7030; J7120; U0002

== ENCOUNTER 2020-04-25 11:01 | Emergency (ER) | payer OTHER ==
[~2020-04-25] VITALS: Ht 180.3 cm; Wt 129.3 kg
[~2020-04-25 11:01] MED LIST changes: +GUAI200 PO
[2020-04-25] MEDS ORDERED: LIDO700A20 TOP (11:56)
== END 2020-04-25 12:37 | disposition home or self-care (01) ==
LOC: ER 11:01
DX: R07.89 Other chest pain (principal); J44.9 Chronic obstructive pulmonary disease, unspecified; F32.9 Major depressive disorder, single episode, unspecified; M79.7 Fibromyalgia; F41.9 Anxiety disorder, unspecified; K21.9 Gastro-esophageal reflux disease without esophagitis
CPT/HCPCS: 71046; 96372; 99284-25; J1885

== ENCOUNTER 2020-04-29 09:02 | Inpatient (IN) | payer OTHER ==
[~2020-04-29] VITALS: Ht 177.8 cm; Wt 139.2 kg
[~2020-04-29 09:02] MED LIST changes: +LIDO700A20 TOP
[2020-04-29 10:06] LABS: BASOPHILS ABSOLUTE AUTO 0.09 K/mm3 (0.00-0.23); BASOPHILS PERCENT AUTO 1 % (0-2); EOSINOPHILS ABSOLUTE AUTO 0.27 K/mm3 (0.00-0.68); EOSINOPHILS PERCENT AUTO 2 % (0-6); Hematocrit 43.1 % (33.0-51.0); Hemoglobin 13.6 g/dL (11.5-16.0); IMMATURE GRAN ABSOLUTE AUTO 0.59 K/mm3 (0.00-0.10); IMMATURE GRAN PERCENT AUTO 3 % (0-1); LYMPHOCYTES ABSOLUTE AUTO 3.23 K/mm3 (0.84-5.20); LYMPHOCYTES PERCENT AUTO 18 % (21-46); MONOCYTES ABSOLUTE AUTO 1.37 K/mm3 (0.16-1.47); MONOCYTES PERCENT AUTO 8 % (4-13); Mean Corpuscular HGB 29.6 pg (26.0-34.0); Mean Corpuscular HGB Conc 31.6 g/dL (31.5-36.5); Mean Corpuscular Volume 94 fL (80-100); Mean Platelet Volume 10.1 fL (9.1-12.4); NEUTROPHILS ABSOLUTE AUTO 12.75 K/mm3 (1.96-9.15); NEUTROPHILS PERCENT AUTO 70 % (41-73); Platelet Count 244 K/mm3 (150-400); RDW Coefficient Variation 13.5 % (11.7-14.2); RDW Standard Deviation 46.2 fL (35.1-46.3)
[2020-04-29 10:19] LABS: Anion Gap 6 mmol/L (6-16); Blood Urea Nitrogen 13 mg/dL (8-24); Bun/Creatinine Ratio 17.1 (12.0-20.0); CO2, Blood 25 mmol/L (21-32); Calcium, Blood 8.9 mg/dL (8.5-10.1); Chloride, Blood 112 mmol/L (98-108); Creatinine, Blood 0.76 mg/dL (0.40-1.00); Glomerular Filtration Rate >60 (60-); Glucose, Blood 73 mg/dL (70-99); Potassium, Blood 3.5 mmol/L (3.5-5.5); Sodium, Blood 143 mmol/L (136-145)
[2020-04-29] MEDS ORDERED: SYMBICORT 160-4.6 GM INH (12:32)
[2020-04-29] MEDS ORDERED: TUDORZA PRESS400 MC1 INH (12:33)
[2020-04-29] MEDS ORDERED: COMBIVENT RESPIM4 G1 INH (12:41)
[2020-04-29] MEDS ORDERED: PRED20 PO (12:41)
[2020-04-29] MEDS ORDERED: VITAMIN D325 MC3 PO (12:43)
[2020-04-29] MEDS ORDERED: ALBU90OI INH (12:43)
[2020-04-29] MEDS ORDERED: BUSP10 PO (12:43)
[2020-04-29] MEDS ORDERED: Cetirizine HCl10 MG PO (12:44)
[2020-04-29] MEDS ORDERED: CYCL10 PO (12:44)
[2020-04-29] MEDS ORDERED: Prozac20 MG PO (12:44)
[2020-04-29] MEDS ORDERED: FURO20 PO (12:44)
[2020-04-29] MEDS ORDERED: IPRAT-ALBUT 0.5-3 ML NEB (12:46)
[2020-04-29] MEDS ORDERED: HYDCHL25 PO (12:46)
[2020-04-29] MEDS ORDERED: MONT10T PO (12:46)
[2020-04-29] MEDS ORDERED: OMEP20ER PO (12:47)
[2020-04-29] MEDS ORDERED: TIZA4 PO (12:47)
[2020-04-29] MEDS ORDERED: TRAM50 PO (12:48)
[2020-04-29] MEDS ORDERED: FERSU300 PO (12:49)
[2020-04-29] MEDS ORDERED: MAGNESIUM OXID500 MG PO (12:49)
[2020-04-29] MEDS ORDERED: MULTI-VITAMIN1 EAC2 PO (12:49)
[2020-04-29] MEDS ORDERED: LIDO700A20 TOP (12:52)
[2020-04-29 18:22] LABS: Adenovirus Not Detected (NOT DETECT); Bordetella pertussis Not Detected (NOT DETECT); Chlamydophila pneumoniae Not Detected (NOT DETECT); Coronavirus 229E Not Detected (NOT DETECT); Coronavirus HKU1 Not Detected (NOT DETECT); Coronavirus NL63 Not Detected (NOT DETECT); Coronavirus OC43 Not Detected (NOT DETECT); Human Metapneumovirus Not Detected (NOT DETECT); Human Rhinovirus/Enterovirus Not Detected (NOT DETECT); Influenza A/2009-H1 Not Detected (NOT DETECT); Influenza A/H1 Not Detected (NOT DETECT); Influenza A/H3 Not Detected (NOT DETECT); Influenza B Not Detected (NOT DETECT); Mycoplasma pneumoniae Not Detected (NOT DETECT); Parainfluenza Virus 1 Not Detected (NOT DETECT); Parainfluenza Virus 2 Not Detected (NOT DETECT); Parainfluenza Virus 3 Not Detected (NOT DETECT); Parainfluenza Virus 4 Not Detected (NOT DETECT); Respiratory Syncytial Virus Not Detected (NOT DETECT)
--- NOTE | 2020-04-29 18:38 | NUR ---
ASSUMED CARE: PT ARRIVED IN THE UNIT VIA STRETCHER FROM [facility], RECEIVED REPORT FROM SERG TROTTER. PT IS HERE FOR ASTHMA EXACERBATION. PT ALERT AND ORIENTED, INDEPENDENT IN THE ROOM. VITALS STABLE HRR NSR ON THE 90'S, BP SYSTOLIC 140'S, SATS ABOVE 93% ON 3L OF O2, AFEBRILE. PT C/O PAIN ON THE LEFT SIDE, PAIN MEDS X1 AND WAS EFFECTIVE. PT IN BED RESTING CALL LIGTHS WITHIN REACH, WILL REPORT TO ONCOMING SHIFT.
[2020-04-30 04:23] LABS: BASOPHILS ABSOLUTE AUTO 0.04 K/mm3 (0.00-0.23); BASOPHILS PERCENT AUTO 0 % (0-2); EOSINOPHILS PERCENT AUTO 0 % (0-6); Hematocrit 44.2 % (33.0-51.0); Hemoglobin 13.9 g/dL (11.5-16.0); IMMATURE GRAN ABSOLUTE AUTO 0.59 K/mm3 (0.00-0.10); IMMATURE GRAN PERCENT AUTO 4 % (0-1); LYMPHOCYTES ABSOLUTE AUTO 1.12 K/mm3 (0.84-5.20); LYMPHOCYTES PERCENT AUTO 7 % (21-46); MONOCYTES ABSOLUTE AUTO 0.31 K/mm3 (0.16-1.47); MONOCYTES PERCENT AUTO 2 % (4-13); Mean Corpuscular HGB 29.8 pg (26.0-34.0); Mean Corpuscular HGB Conc 31.4 g/dL (31.5-36.5); Mean Corpuscular Volume 95 fL (80-100); Mean Platelet Volume 10.5 fL (9.1-12.4); NEUTROPHILS ABSOLUTE AUTO 14.78 K/mm3 (1.96-9.15); NEUTROPHILS PERCENT AUTO 88 % (41-73); Platelet Count 245 K/mm3 (150-400); RDW Coefficient Variation 13.3 % (11.7-14.2); RDW Standard Deviation 46.3 fL (35.1-46.3); Red Blood Cell Count 4.67 M/mm3 (3.80-5.20); White Blood Cell Count 16.84 K/mm3 (4.00-11.30)
[2020-04-30 04:50] LABS: Anion Gap 6 mmol/L (6-16); Blood Urea Nitrogen 11 mg/dL (8-24); Bun/Creatinine Ratio 14.5 (12.0-20.0); CO2, Blood 25 mmol/L (21-32); Calcium, Blood 8.7 mg/dL (8.5-10.1); Chloride, Blood 108 mmol/L (98-108); Creatinine, Blood 0.76 mg/dL (0.40-1.00); Glomerular Filtration Rate >60 (60-); Glucose, Blood 145 mg/dL (70-99); Potassium, Blood 4.4 mmol/L (3.5-5.5); Sodium, Blood 139 mmol/L (136-145)
--- NOTE | 2020-04-30 05:21 | NUR ---
PATIENT RESTING IN BED, EXPIRATORY WHEEZES NOTED ON AUSCULTATION. O2 SAT MID 90S ON 3L OF OXYGEN WHICH IS BASELINE FOR HER. SHE AMBULATES INDEPENDENTLY, NO COMPLAINTS OF CHEST PAIN OR SOB. CALL LIGHT WITHIN REACH.
--- NOTE | 2020-04-30 09:34 | NUR ---
ASSUME CARE: VITALS STABLE AFEBRILE, PT STILL HAS BILAT WHEEZING BREATHIN TX PER RT PER PT'S REQUESTS, PAIN MEDS GIVEN FOR LEFT SIDE PAIN ALSO REQUESTED HEATING PACK. NO OTHER ISSUES/ACUTE CHANGE AT THIS TIME. PT INDEPENDENT IN THE ROOM, WILL MONITOR
--- NOTE | 2020-04-30 21:59 | NUR ---
REPORT GIVEN REPORT GIVEN AT THIS TIME TO SERG SPAULDING ON MEDICAL FLOOR. PT IS TRANSPORTED AT THIS TIME TO ROOM 355 BY PARKING GARAGE MANAGER WITH 3 L OF O2.
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
--- NOTE | 2020-05-01 02:46 | NUR ---
04/30/20 2326 PT LYING IN BED, DENIES NEED FOR ANYTHING AT THIS TIME. NO APPARENT SIGNS OF DISTRESS. CALL LIGHT IS IN REACH.
--- NOTE | 2020-05-01 02:46 | NUR ---
PT LYING IN BED, EYES CLOSED, APPEARS TO BE RESTING. BREATHING IS EVEN, UNLABORED. NO APPARENT SIGNS OF DISTRESS. CALL LIGHT IS IN REACH.
--- NOTE | 2020-05-01 05:07 | NUR ---
PT LYING IN BED, EYES CLOSED, APPEARS TO BE RESTING. WAKES EASILY TO VERBAL STIMULI. NO APPARENT SIGNS OF DISTRESS. CALL LIGHT IS IN REACH.
--- NOTE | 2020-05-01 05:07 | NUR ---
AAO X 4, ON 3L AT 96%. REPORTS L SIDE PAIN, GOT ULTRAM X 1. REPORTS SOB THAT INCREASES WITH EXERTION.
--- NOTE | 2020-05-01 06:03 | NUR ---
PT LYING IN BED, EYES CLOSED, APPEARS TO BE RESTIG. WAKES EASILY TO VERBAL STIMULI. PT REQUESTED AND RECIEVED ULTRAM, WILL EVAL FOR EFFECT. NO OTHER APPARENT SIGNS OF DISTRESS. CALL LIGHT IS IN REACH. NO OTHER CHANGES THIS SHIFT.
--- NOTE | 2020-05-01 17:26 | NUR ---
SHIFT SUMMARY PATIENT HAS BEEN ALERT AND ORIENTED THROUGHOUT THIS SHIFT. PATIENT IS INDEPENDENT IN THE ROOM. PATIENT CONTINUES TO HAVE PAIN IN THE LEFT SIDE OF HER CHEST. PATIENT MEDICATED FOR PAIN THROUGHOUT THIS SHIFT. PATIENT HAS LAYED IN BED MOST OF THIS SHIFT. PATIENT ON THE PHONE MUCH OF THIS SHIFT. PATIENT DOWN TO IMAGING THIS AFTERNOON TO ATTEMPT TO DETERMINE THE CAUSE OF HER PAIN. PATIENT CURRENTLY LAYING IN BED, DENIES FURTHER NEEDS AT THIS TIME.
--- NOTE | 2020-05-02 00:26 | NUR ---
05/01/202025 PT LYING IN BED, REPORTS PAIN IN L SIDE, ADMINISTERED PAIN MEDS, WILL EVAL FOR EFFECT. REPORTS SOB THAT INCREASES WITH EXERTION OR PAIN, ON 3L O2 NC AT 97%. NO OTHER APPARENT SIGNS OF DISTRESS. CALL LIGHT IS IN REACH.
--- NOTE | 2020-05-02 00:27 | NUR ---
0004 PT REQUESTED PAIN MEDS, STILL A LITTLE EARLY FOR NORCO, GAVE TYLENOL, WILL EVAL FOR EFFECT. WILL BRING NORCO SOON ORDER ALLOWS. NO OTHER APPARENT SIGNS OF DISTRESS. CALL LIGHT IS IN REACH.
--- NOTE | 2020-05-02 00:27 | NUR ---
05/01/20 9788 PT LYING IN BED, AWAKE, DENIES NEED FOR ANYTHING AT THIS TIME. NO APPARENT SIGNS OF DISTRESS. CALL LIGHT IS IN REACH.
--- NOTE | 2020-05-02 03:36 | NUR ---
PT IS AAO X 4, ON 3L O2 NC AT 97%. PT HAS L SIDE PAIN, GOT NORCO X 2. PT HAS SOB THAT INCREASES WITH EXERTION AND WITH PAIN.
--- NOTE | 2020-05-02 04:15 | NUR ---
Patient c/o left rib pain at a level of 7/10. Unfortunately, both [place] and APAP were given between 2400 and 0100. Offered patient warm or cool therapy which patient stated she did not need, and that she could wait for her medications until 0600. bed in low and locked, call light in place. Asked patient to call if pain increases or becomes untolerable. [facility]
--- NOTE | 2020-05-02 17:13 | NUR ---
PATIENT A/OX4, UP INDEPENDENTLY IN ROOM. 18G L AC WNL AND SL. TORADOL GIVEN X1 FOR PAIN WITH STATED RELIEF. LIDOCAINE PATCH TO L FLANK. LUNGS WITH WHEEZES THROUGHOUT. ROCEPHIN TO TREAT INFECTION. CALM AND COOPERATIVE WITH CARE, CALLS APPROPRIATELY FOR ASSISTANCE.
--- NOTE | 2020-05-03 04:43 | NUR ---
SHIFT SUMMARY PT A/O. AWAKE A GOOD PORTION OF THE EVENING CHATTING WITH SIGNIFICANT OTHER. DOES NOT APPEAR TO BE IN ANY RESPIRATORY DISTRESS. LUNG SOUNDS WHEEZY THROUGHOUT. PT REPORTS THAT THIS IS HER BASELINE. AND THAT IT IS MUCH IMPROVED FROM THE DAY OF ADMISSION. PT DOES REPORT PAIN TO LEFT RIB WITH BREATHING. MEDICATED X 1 W/ 1 TAB NORCO. BREATHING TX'S PER RT. PT REMAINED ON 3 L O2 NC. O2 SATS IN THE HIGH TO MID 90'S. PT HAD UNEVENTFUL NIGHT AND IS HOPEFUL TO BE DISCHARGED HOME TODAY. WILL CONTINUE TO MONITOR AND REPORT TO DAY RN.
[2020-05-03] MEDS ORDERED: AZIT500 PO (11:38)
[2020-05-03] MEDS ORDERED: BENZ100A PO (11:39)
[2020-05-03] MEDS ORDERED: Norco 5-325 Ta1 EACH PO (11:39)
[2020-05-03] MEDS ORDERED: CEFU500T30 PO (11:40)
--- NOTE | 2020-05-03 13:54 | NUR ---
PT DISCHARGED HOME, MOM ESCORT OUTSIDE, PT INSISTED ON WALKING. RESP NONLABORED, FEELS READY TO GO HOME. SENT WITH DC INSTRUCTIONS INCLUDING NEW MEDS. FAXED TO PHARMACY. TO F/U WITH PULM. BELONGINGS SENT WITH PT.
== END 2020-05-03 13:26 | disposition home or self-care (01) | DRG 193 ==
LOC: ER 09:02 → PCU 15:48 → MEDS 04-30 22:11
PROVIDERS: Physician Assistant; ADMIT Internal Medicine
DX: J18.9 Pneumonia, unspecified organism (principal); J96.21 Acute and chronic respiratory failure with hypoxia; J45.51 Severe persistent asthma with (acute) exacerbation; Z68.41 Body mass index [BMI] 40.0-44.9, adult; E66.01 Morbid (severe) obesity due to excess calories; Z99.81 Dependence on supplemental oxygen; K21.9 Gastro-esophageal reflux disease without esophagitis; F41.1 Generalized anxiety disorder; F32.9 Major depressive disorder, single episode, unspecified; M79.7 Fibromyalgia; M94.0 Chondrocostal junction syndrome [Tietze]
CPT/HCPCS: 0099U; 36415; 71045; 71100; 71260; 80048; 85025; 87070; 87205; 94640; 94644; 94645; 94760; 96361; 96365; 96375; 99285-25; A9270; A9270-GY; J0696; J1885; J2930; J3475; J7030; Q9967

== ENCOUNTER 2020-05-28 11:23 | Emergency (ER) | payer OTHER ==
[~2020-05-28] VITALS: Ht 177.8 cm; Wt 129.3 kg
[~2020-05-28 11:23] MED LIST changes: +ALBU90OI INH; +BENZ100A PO; +COMBIVENT RESPIM4 G1 INH; +CYCL10 PO; +FERSU300 PO; +FURO20 PO; +HYDCHL25 PO; +IPRAT-ALBUT 0.5-3 ML NEB; +MONT10T PO; +MULTI-VITAMIN1 EAC2 PO; +Norco 5-325 Ta1 EACH PO; +OMEP20ER PO; +Prozac20 MG PO; +SYMBICORT 160-4.6 GM INH; +TIZA4 PO; +TUDORZA PRESS400 MC1 INH; +VITAMIN D325 MC3 PO
[2020-05-28 12:23] LABS: BASOPHILS ABSOLUTE AUTO 0.07 K/mm3 (0.00-0.23); BASOPHILS PERCENT AUTO 0 % (0-2); EOSINOPHILS ABSOLUTE AUTO 0.05 K/mm3 (0.00-0.68); EOSINOPHILS PERCENT AUTO 0 % (0-6); Hematocrit 42.7 % (33.0-51.0); Hemoglobin 13.9 g/dL (11.5-16.0); IMMATURE GRAN ABSOLUTE AUTO 0.63 K/mm3 (0.00-0.10); IMMATURE GRAN PERCENT AUTO 4 % (0-1); LYMPHOCYTES ABSOLUTE AUTO 1.28 K/mm3 (0.84-5.20); LYMPHOCYTES PERCENT AUTO 8 % (21-46); MONOCYTES ABSOLUTE AUTO 0.71 K/mm3 (0.16-1.47); MONOCYTES PERCENT AUTO 5 % (4-13); Mean Corpuscular HGB 29.8 pg (26.0-34.0); Mean Corpuscular HGB Conc 32.6 g/dL (31.5-36.5); Mean Corpuscular Volume 92 fL (80-100); Mean Platelet Volume 9.9 fL (9.1-12.4); NEUTROPHILS ABSOLUTE AUTO 12.88 K/mm3 (1.96-9.15); NEUTROPHILS PERCENT AUTO 83 % (41-73); Platelet Count 255 K/mm3 (150-400); RDW Coefficient Variation 13.3 % (11.7-14.2); RDW Standard Deviation 44.9 fL (35.1-46.3); Red Blood Cell Count 4.66 M/mm3 (3.80-5.20); White Blood Cell Count 15.62 K/mm3 (4.00-11.30)
[2020-05-28 12:42] LABS: Alanine Aminotransfer (ALT/SGP 49 U/L (12-78); Albumin, Blood 3.9 g/dL (3.4-5.0); Albumin/Globulin Ratio 1.2 (0.8-1.8); Alk Phos 105 U/L (50-136); Anion Gap 6 mmol/L (6-16); Aspartate Aminotrans (AST/SGOT 16 U/L (12-37); Bilirubin, Total 0.3 mg/dL (0.1-1.0); Blood Urea Nitrogen 8 mg/dL (8-24); Bun/Creatinine Ratio 9.7 (12.0-20.0); CO2, Blood 26 mmol/L (21-32); Calcium, Blood 9.4 mg/dL (8.5-10.1); Chloride, Blood 109 mmol/L (98-108); Creatinine, Blood 0.82 mg/dL (0.40-1.00); Globulin, Blood 3.2 g/dL (2.2-4.0); Glomerular Filtration Rate >60 (60-); Glucose, Blood 100 mg/dL (70-99); Sodium, Blood 141 mmol/L (136-145); Total Protein, Blood 7.1 g/dL (6.4-8.2); Troponin I <0.015 ng/mL (0.000-0.040)
[2020-05-28] MEDS ORDERED: XANAX0.25 MG PO (13:33)
[2020-05-28] MEDS ORDERED: VITAMIN D5000 UNIT PO (13:34)
[2020-05-28] MEDS ORDERED: HYDCHL25 PO (13:36)
[2020-05-28] MEDS ORDERED: Colace250 MG PO (14:33)
[2020-05-28] MEDS ORDERED: HYDR1TAB94 PO (14:33)
== END 2020-05-28 14:56 | disposition home or self-care (01) ==
LOC: ER 11:23
PROVIDERS: Emergency Medicine
DX: S22.31XA Fracture of one rib, right side, initial encounter for closed fracture (principal); J44.0 Chronic obstructive pulmonary disease with (acute) lower respiratory infection; Z88.0 Allergy status to penicillin; Z79.899 Other long term (current) drug therapy; Z79.51 Long term (current) use of inhaled steroids; X58.XXXA Exposure to other specified factors, initial encounter
CPT/HCPCS: 36415; 71250; 80053; 84484; 85025; 85379; 93005; 93010; 96374; 96375; 96376; 99284-25; J2270; J2405

== ENCOUNTER 2020-06-20 16:08 | Inpatient (IN) | payer OTHER ==
[~2020-06-20] VITALS: Ht 177.8 cm; Wt 129.3 kg
[~2020-06-20 16:08] MED LIST changes: +Colace250 MG PO; +HYDR1TAB94 PO; +VITAMIN D5000 UNIT PO
[2020-06-20 20:35] LABS: PCO2 Arterial 36.4 mmHg (35-45); PO2 Arterial 60.1 mmHg (80-100); pH Blood Arterial 7.44 (7.35-7.45)
[2020-06-20 22:00] LABS: BASOPHILS PERCENT AUTO 1 % (0-2); EOSINOPHILS ABSOLUTE AUTO 0.49 K/mm3 (0.00-0.68); EOSINOPHILS PERCENT AUTO 3 % (0-6); Hemoglobin 15.3 g/dL (11.5-16.0); IMMATURE GRAN ABSOLUTE AUTO 0.37 K/mm3 (0.00-0.10); IMMATURE GRAN PERCENT AUTO 2 % (0-1); LYMPHOCYTES ABSOLUTE AUTO 2.05 K/mm3 (0.84-5.20); LYMPHOCYTES PERCENT AUTO 12 % (21-46); MONOCYTES ABSOLUTE AUTO 1.04 K/mm3 (0.16-1.47); MONOCYTES PERCENT AUTO 6 % (4-13); Mean Corpuscular HGB 29.3 pg (26.0-34.0); Mean Corpuscular HGB Conc 31.9 g/dL (31.5-36.5); Mean Corpuscular Volume 92 fL (80-100); Mean Platelet Volume 10.2 fL (9.1-12.4); NEUTROPHILS ABSOLUTE AUTO 12.51 K/mm3 (1.96-9.15); NEUTROPHILS PERCENT AUTO 76 % (41-73); Platelet Count 274 K/mm3 (150-400); RDW Coefficient Variation 13.5 % (11.7-14.2); RDW Standard Deviation 45.8 fL (35.1-46.3); Red Blood Cell Count 5.22 M/mm3 (3.80-5.20); White Blood Cell Count 16.56 K/mm3 (4.00-11.30)
[2020-06-20 22:19] LABS: Alanine Aminotransfer (ALT/SGP 102 U/L (12-78); Albumin, Blood 4.4 g/dL (3.4-5.0); Albumin/Globulin Ratio 1.3 (0.8-1.8); Alk Phos 115 U/L (50-136); Anion Gap 7 mmol/L (6-16); Aspartate Aminotrans (AST/SGOT 37 U/L (12-37); Bilirubin, Total 0.9 mg/dL (0.1-1.0); Blood Urea Nitrogen 7 mg/dL (8-24); Bun/Creatinine Ratio 10.2 (12.0-20.0); CO2, Blood 26 mmol/L (21-32); Calcium, Blood 9.5 mg/dL (8.5-10.1); Chloride, Blood 107 mmol/L (98-108); Creatinine, Blood 0.69 mg/dL (0.40-1.00); Globulin, Blood 3.4 g/dL (2.2-4.0); Glomerular Filtration Rate >60 (60-); Glucose, Blood 92 mg/dL (70-99); Potassium, Blood 3.6 mmol/L (3.5-5.5); Sodium, Blood 140 mmol/L (136-145); Total Protein, Blood 7.8 g/dL (6.4-8.2)
--- NOTE | 2020-06-21 06:38 | NUR ---
SUMMARY PT HAS BEEN RESTING QUIETLY SINCE ADMISSION TO THE FLOOR. LUNGS REMAIN COARSE WITH INS/EXP WHEEZES THROU OUT. SHE IS ON HER HOME O2 REQUIREMENT OF 3L, O2 SATS >94%, BREATHING TX PRN. PT DENIES PAIN OR NAUSEA. SHE HAS BEEN ABLE TO SLEEP. INDEPENDENT IN THE ROOM. CALL LIGHT IN ROOM. TM
--- NOTE | 2020-06-21 07:29 | NUR ---
ASSUMED PATIENT CARE. PATIENT SLEEPING COMFORTABLY IN BED, NO SIGNS OF ACUTE DISTRESS, WCTM.
[2020-06-21 10:44] LABS: BASOPHILS ABSOLUTE AUTO 0.03 K/mm3 (0.00-0.23); BASOPHILS PERCENT AUTO 0 % (0-2); EOSINOPHILS PERCENT AUTO 0 % (0-6); Hematocrit 47.6 % (33.0-51.0); Hemoglobin 15.3 g/dL (11.5-16.0); IMMATURE GRAN ABSOLUTE AUTO 0.31 K/mm3 (0.00-0.10); IMMATURE GRAN PERCENT AUTO 2 % (0-1); LYMPHOCYTES ABSOLUTE AUTO 0.72 K/mm3 (0.84-5.20); LYMPHOCYTES PERCENT AUTO 5 % (21-46); MONOCYTES ABSOLUTE AUTO 0.08 K/mm3 (0.16-1.47); MONOCYTES PERCENT AUTO 1 % (4-13); Mean Corpuscular HGB 29.7 pg (26.0-34.0); Mean Corpuscular HGB Conc 32.1 g/dL (31.5-36.5); Mean Corpuscular Volume 92 fL (80-100); Mean Platelet Volume 10.3 fL (9.1-12.4); NEUTROPHILS ABSOLUTE AUTO 14.05 K/mm3 (1.96-9.15); NEUTROPHILS PERCENT AUTO 93 % (41-73); Platelet Count 277 K/mm3 (150-400); RDW Coefficient Variation 13.4 % (11.7-14.2); RDW Standard Deviation 45.1 fL (35.1-46.3); Red Blood Cell Count 5.16 M/mm3 (3.80-5.20); White Blood Cell Count 15.19 K/mm3 (4.00-11.30)
[2020-06-21 11:22] LABS: Alanine Aminotransfer (ALT/SGP 99 U/L (12-78); Albumin, Blood 4.1 g/dL (3.4-5.0); Albumin/Globulin Ratio 1.2 (0.8-1.8); Alk Phos 108 U/L (50-136); Anion Gap 8 mmol/L (6-16); Aspartate Aminotrans (AST/SGOT 32 U/L (12-37); Bilirubin, Total 0.8 mg/dL (0.1-1.0); Blood Urea Nitrogen 12 mg/dL (8-24); Bun/Creatinine Ratio 16.3 (12.0-20.0); CO2, Blood 26 mmol/L (21-32); Calcium, Blood 10.1 mg/dL (8.5-10.1); Chloride, Blood 104 mmol/L (98-108); Creatinine, Blood 0.74 mg/dL (0.40-1.00); Globulin, Blood 3.5 g/dL (2.2-4.0); Glomerular Filtration Rate >60 (60-); Glucose, Blood 152 mg/dL (70-99); Potassium, Blood 4.8 mmol/L (3.5-5.5); Sodium, Blood 138 mmol/L (136-145); Total Protein, Blood 7.6 g/dL (6.4-8.2)
--- NOTE | 2020-06-21 18:09 | NUR ---
REPORT GIVEN TO JONNY ULRICH ON MEDICAL.
--- NOTE | 2020-06-21 19:29 | NUR ---
SHIFT SUMMARY: PATIENT XFR FROM PCU-10 THIS SHIFT. PT A&O; CALM AND COOEPRATIVE WITH CARE; INDEPENDENT IN ROOM. O2 @ 3L; 3L @ HOME. IV STEROIDS CONTINUING. REPORT GIVEN TO ONCOMING RN.
--- NOTE | 2020-06-22 04:51 | NUR ---
CASING FLUSHER SUMMARY PATIENT A&OX4, ABLE TO MAKE NEEDS KNOWN. PLEASANT AND COOPERATIVE TO CARE. MEDICATED FOR PAIN PER EMAR. PATIENT CONTINUES ON O2 AT 3LPM. INS/EXP WHEEZES NOTED UPON ASSESSMENT. PATIENT ON TELE SR 90's. INDEPENDENT IN ROOM, CALL LIGHT WITHIN REACH. WILL CONTINUE TO MONITOR PATIENT. WILL REPORT TO ONCOMING RN.
[2020-06-22] MEDS ORDERED: OXYC5 PO (11:29)
--- NOTE | 2020-06-22 12:13 | NUR ---
PATIENT DISCHARGE: PATIENT DISCHARGED TO HOME THIS SHIFT. MEDICATION RECONCILIATION COMPLETED; MED LIST FAXED TO [facility] IN [place]; HARD SCRIPT PROVIDED TO PATIENT FOR CONTROLLED SUBSTANCE. DISCHARGE EDUCATION PROVIDED TO PATIENT AND FAMILY. PATIENT INDEPENDENT IN ROOM; PATIENT REFUSED WHEELCHAIR TRANSPORT TO EXIT; PATIENT DEPARTED MEDICAL FLOOR AT 1209. PATIENT DEPARTED [facility] VIA PRIVATE AUTO.
== END 2020-06-22 12:10 | disposition home or self-care (01) | DRG 202 ==
LOC: ER 16:08 → ERHOLD 22:30 → PCU 06-21 01:18 → MEDS 06-21 18:52 → ENPENDDIS 06-22 11:36 → MEDS 06-22 12:10
PROVIDERS: Emergency Medicine; ADMIT Internal Medicine
DX: J45.51 Severe persistent asthma with (acute) exacerbation (principal); J96.11 Chronic respiratory failure with hypoxia; E66.01 Morbid (severe) obesity due to excess calories; F41.8 Other specified anxiety disorders; K21.9 Gastro-esophageal reflux disease without esophagitis; M79.7 Fibromyalgia; Z87.442 Personal history of urinary calculi; Z99.81 Dependence on supplemental oxygen
CPT/HCPCS: 36415; 36600; 71046; 80053; 82803; 83605; 85025; 87040; 94640; 94644; 94760; 96374; 96375; 99285-25; A9270-GY; J1100; J2405; J2930; J3010; U0003

== ENCOUNTER 2020-07-18 08:20 | Inpatient (IN) | payer OTHER ==
[~2020-07-18] VITALS: Ht 180.3 cm; Wt 129.5 kg
[~2020-07-18 08:20] MED LIST changes: +OXYC5 PO
[2020-07-18] MEDS ORDERED: DICL75ER PO (08:40)
[2020-07-18 09:08] LABS: BASOPHILS ABSOLUTE AUTO 0.06 K/mm3 (0.00-0.23); BASOPHILS PERCENT AUTO 0 % (0-2); EOSINOPHILS ABSOLUTE AUTO 0.14 K/mm3 (0.00-0.68); EOSINOPHILS PERCENT AUTO 1 % (0-6); Hematocrit 43.2 % (33.0-51.0); Hemoglobin 14.2 g/dL (11.5-16.0); IMMATURE GRAN ABSOLUTE AUTO 0.31 K/mm3 (0.00-0.10); IMMATURE GRAN PERCENT AUTO 2 % (0-1); LYMPHOCYTES ABSOLUTE AUTO 1.66 K/mm3 (0.84-5.20); LYMPHOCYTES PERCENT AUTO 10 % (21-46); MONOCYTES ABSOLUTE AUTO 0.88 K/mm3 (0.16-1.47); MONOCYTES PERCENT AUTO 5 % (4-13); Mean Corpuscular HGB 30.1 pg (26.0-34.0); Mean Corpuscular HGB Conc 32.9 g/dL (31.5-36.5); Mean Corpuscular Volume 92 fL (80-100); Mean Platelet Volume 10.3 fL (9.1-12.4); NEUTROPHILS ABSOLUTE AUTO 13.36 K/mm3 (1.96-9.15); NEUTROPHILS PERCENT AUTO 81 % (41-73); Platelet Count 234 K/mm3 (150-400); RDW Coefficient Variation 13.5 % (11.7-14.2); RDW Standard Deviation 45.8 fL (35.1-46.3); Red Blood Cell Count 4.72 M/mm3 (3.80-5.20); White Blood Cell Count 16.41 K/mm3 (4.00-11.30)
[2020-07-18 09:26] LABS: Alanine Aminotransfer (ALT/SGP 59 U/L (12-78); Albumin, Blood 3.9 g/dL (3.4-5.0); Albumin/Globulin Ratio 1.3 (0.8-1.8); Alk Phos 99 U/L (50-136); Anion Gap 9 mmol/L (6-16); Aspartate Aminotrans (AST/SGOT 13 U/L (12-37); Bilirubin, Total 0.6 mg/dL (0.1-1.0); Blood Urea Nitrogen 13 mg/dL (8-24); Bun/Creatinine Ratio 15.1 (12.0-20.0); CO2, Blood 24 mmol/L (21-32); Calcium, Blood 9.3 mg/dL (8.5-10.1); Chloride, Blood 109 mmol/L (98-108); Creatinine, Blood 0.86 mg/dL (0.40-1.00); Globulin, Blood 3.1 g/dL (2.2-4.0); Glomerular Filtration Rate >60 (60-); Glucose, Blood 111 mg/dL (70-99); Potassium, Blood 3.4 mmol/L (3.5-5.5); Sodium, Blood 142 mmol/L (136-145)
[2020-07-19 05:49] LABS: BASOPHILS ABSOLUTE AUTO 0.05 K/mm3 (0.00-0.23); BASOPHILS PERCENT AUTO 0 % (0-2); EOSINOPHILS PERCENT AUTO 0 % (0-6); Hematocrit 42.7 % (33.0-51.0); Hemoglobin 13.4 g/dL (11.5-16.0); IMMATURE GRAN ABSOLUTE AUTO 0.48 K/mm3 (0.00-0.10); IMMATURE GRAN PERCENT AUTO 3 % (0-1); LYMPHOCYTES ABSOLUTE AUTO 1.17 K/mm3 (0.84-5.20); LYMPHOCYTES PERCENT AUTO 7 % (21-46); MONOCYTES PERCENT AUTO 3 % (4-13); Mean Corpuscular HGB 29.6 pg (26.0-34.0); Mean Corpuscular HGB Conc 31.4 g/dL (31.5-36.5); Mean Corpuscular Volume 94 fL (80-100); Mean Platelet Volume 10.5 fL (9.1-12.4); NEUTROPHILS ABSOLUTE AUTO 15.12 K/mm3 (1.96-9.15); NEUTROPHILS PERCENT AUTO 87 % (41-73); Platelet Count 234 K/mm3 (150-400); RDW Coefficient Variation 13.3 % (11.7-14.2); RDW Standard Deviation 46.1 fL (35.1-46.3); Red Blood Cell Count 4.53 M/mm3 (3.80-5.20); White Blood Cell Count 17.42 K/mm3 (4.00-11.30)
[2020-07-19 06:03] LABS: Anion Gap 6 mmol/L (6-16); Blood Urea Nitrogen 13 mg/dL (8-24); Bun/Creatinine Ratio 17.7 (12.0-20.0); CO2, Blood 25 mmol/L (21-32); Calcium, Blood 9.2 mg/dL (8.5-10.1); Chloride, Blood 112 mmol/L (98-108); Creatinine, Blood 0.74 mg/dL (0.40-1.00); Glomerular Filtration Rate >60 (60-); Glucose, Blood 120 mg/dL (70-99); Potassium, Blood 4.5 mmol/L (3.5-5.5); Sodium, Blood 143 mmol/L (136-145)
[2020-07-19 10:34] LABS: PCO2 Arterial 39 mmHg (35-45); PO2 Arterial 85 mmHg (80-100); pH Blood Arterial 7.41 (7.35-7.45)
[2020-07-20 00:46] LABS: Adenovirus Not Detected (NOT DETECT); Bordetella pertussis Not Detected (NOT DETECT); Chlamydophila pneumoniae Not Detected (NOT DETECT); Coronavirus 229E Not Detected (NOT DETECT); Coronavirus HKU1 Not Detected (NOT DETECT); Coronavirus NL63 Not Detected (NOT DETECT); Coronavirus OC43 Not Detected (NOT DETECT); Human Metapneumovirus Not Detected (NOT DETECT); Human Rhinovirus/Enterovirus Not Detected (NOT DETECT); Influenza A/2009-H1 Not Detected (NOT DETECT); Influenza A/H1 Not Detected (NOT DETECT); Influenza A/H3 Not Detected (NOT DETECT); Influenza B Not Detected (NOT DETECT); Mycoplasma pneumoniae Not Detected (NOT DETECT); Parainfluenza Virus 1 Not Detected (NOT DETECT); Parainfluenza Virus 2 Not Detected (NOT DETECT); Parainfluenza Virus 3 Not Detected (NOT DETECT); Parainfluenza Virus 4 Not Detected (NOT DETECT); Respiratory Syncytial Virus Not Detected (NOT DETECT); SARS-Cov-2 (COVID-19), BioFire Not Detected (NOT DETECT)
[2020-07-20] MEDS ORDERED: TRAM50 PO (12:11)
[2020-07-20] MEDS ORDERED: LEVFLO500 PO (12:11)
[2020-07-20] MEDS ORDERED: LIDO700A20 TOP (12:12)
== END 2020-07-20 13:29 | disposition home or self-care (01) | DRG 871 ==
LOC: ER 08:20 → MEDS 11:48 → ENPENDDIS 07-20 10:48 → MEDS 07-20 13:29
PROVIDERS: Emergency Medicine; Internal Medicine; Nurse Practitioner Acute Care; ADMIT Family Medicine
PROC: 5A09357 Assistance with Respiratory Ventilation, Less than 24 Consecutive Hours, Continuous Positive Airway Pressure (ICD-10-PCS; principal; 2020-07-18)
DX: A41.9 Sepsis, unspecified organism (principal); J96.21 Acute and chronic respiratory failure with hypoxia; Z20.828 Contact with and (suspected) exposure to other viral communicable diseases; J18.9 Pneumonia, unspecified organism; J45.51 Severe persistent asthma with (acute) exacerbation; M80.0AXA Age-related osteoporosis with current pathological fracture, other site, initial encounter for fracture; R65.10 Systemic inflammatory response syndrome (SIRS) of non-infectious origin without acute organ dysfunction; Z99.81 Dependence on supplemental oxygen; F41.1 Generalized anxiety disorder; E66.01 Morbid (severe) obesity due to excess calories; Z68.39 Body mass index [BMI] 39.0-39.9, adult; M79.7 Fibromyalgia; D50.9 Iron deficiency anemia, unspecified; I10 Essential (primary) hypertension
CPT/HCPCS: 0202U; 36415; 36600; 71045; 80048; 80053; 82803; 83605; 84145; 85025; 87040; 94640; 94644; 94660; 94760; 94762; 96365; 96366; 96367; 96368; 96375; 99285-25; A9270; A9270-GY; J0456; J0696; J1100; J2405; J2930; J3010; J3475; J3480; J7030; J7050

== ENCOUNTER 2020-09-14 08:29 | Inpatient (IN) | payer OTHER ==
[~2020-09-14] VITALS: Ht 177.8 cm; Wt 125.6 kg
[~2020-09-14 08:29] MED LIST changes: +LEVFLO500 PO
[2020-09-14 09:18] LABS: BASOPHILS ABSOLUTE AUTO 0.09 K/mm3 (0.00-0.23); BASOPHILS PERCENT AUTO 0 % (0-2); EOSINOPHILS ABSOLUTE AUTO 0.08 K/mm3 (0.00-0.68); EOSINOPHILS PERCENT AUTO 0 % (0-6); Hematocrit 47.2 % (33.0-51.0); Hemoglobin 15.3 g/dL (11.5-16.0); IMMATURE GRAN ABSOLUTE AUTO 0.59 K/mm3 (0.00-0.10); IMMATURE GRAN PERCENT AUTO 3 % (0-1); LYMPHOCYTES ABSOLUTE AUTO 2.79 K/mm3 (0.84-5.20); LYMPHOCYTES PERCENT AUTO 13 % (21-46); MONOCYTES ABSOLUTE AUTO 1.49 K/mm3 (0.16-1.47); MONOCYTES PERCENT AUTO 7 % (4-13); Mean Corpuscular HGB 29.8 pg (26.0-34.0); Mean Corpuscular HGB Conc 32.4 g/dL (31.5-36.5); Mean Corpuscular Volume 92 fL (80-100); Mean Platelet Volume 10.4 fL (9.1-12.4); NEUTROPHILS ABSOLUTE AUTO 15.93 K/mm3 (1.96-9.15); NEUTROPHILS PERCENT AUTO 76 % (41-73); Platelet Count 277 K/mm3 (150-400); RDW Coefficient Variation 13.2 % (11.7-14.2); RDW Standard Deviation 44.4 fL (35.1-46.3); Red Blood Cell Count 5.14 M/mm3 (3.80-5.20); White Blood Cell Count 20.97 K/mm3 (4.00-11.30)
[2020-09-14 09:31] LABS: Alanine Aminotransfer (ALT/SGP 51 U/L (12-78); Albumin, Blood 3.9 g/dL (3.4-5.0); Albumin/Globulin Ratio 1.1 (0.8-1.8); Alk Phos 108 U/L (50-136); Anion Gap 8 mmol/L (6-16); Aspartate Aminotrans (AST/SGOT 19 U/L (12-37); Bilirubin, Total 0.3 mg/dL (0.1-1.0); Blood Urea Nitrogen 22 mg/dL (8-24); Bun/Creatinine Ratio 24.6 (12.0-20.0); CO2, Blood 24 mmol/L (21-32); Calcium, Blood 9.1 mg/dL (8.5-10.1); Chloride, Blood 107 mmol/L (98-108); Creatinine, Blood 0.89 mg/dL (0.40-1.00); Globulin, Blood 3.4 g/dL (2.2-4.0); Glomerular Filtration Rate >60 (60-); Glucose, Blood 109 mg/dL (70-99); Potassium, Blood 3.6 mmol/L (3.5-5.5); Sodium, Blood 139 mmol/L (136-145); Total Protein, Blood 7.3 g/dL (6.4-8.2)
[2020-09-14 09:48] LABS: Base Excess Venous 1.3 mmol/L; Bicarbonate Venous 25.4 mmol/L (24.0-30.0); PCO2 Venous 40.2 mmHg (38-42); PO2 Venous 79.4 mmHg (38-42); pH Blood Venous 7.42 (7.34-7.37)
[2020-09-14 12:20] LABS: Influenza A, PCR Negative (NEGATIVE); Influenza B, PCR Negative (NEGATIVE); Resp Syncytial Virus, PCR Negative (NEGATIVE); SARS-Cov-2 (COVID-19) PCR, MMC Negative (NEGATIVE)
--- NOTE | 2020-09-14 19:15 | NUR ---
SHIFT SUMMARY PT AXO, PLEASANT AND COOPERATIVE WITH CARE. ON 3L VIA NC. PT ARRIVED TO ROOM AT 1333 VIA BED. VSS. PT ON TELE, SINUS IN THE 90'S. PAIN ON LEFT CHEST RATED 7/10, MEDICATED PER EMAR WITH LITTLE TO NO EFFECT. PT HAS RASH ON SHOULDERS BILATERALLY, DR ROSADO NOTFIED AND NEW ORDERS IN PLACE. REPORT GIVEN TO WHANAU SUPPORT WORKER NURSE WHO ASSUMES CARE AT THIS TIME. BED IN LOW POSITION, CALL LIGHT WITHIN REACH. IV PATENT AND SALINE LOCKED. UP AD DAVID/INDEPENDENT IN ROOM. BLOOD CONSENT SIGNED.
--- NOTE | 2020-09-15 05:42 | NUR ---
Patient alert and oriented times 4. Up into the bathroom independently. Lung sounds with inspiratory/expiratory (primarily inspiratory) wheezes throughout. Chandu is hoping that hospitalist will take a look at her shoulders this morning as rash is becoming bothersome. First dose of Florinef was last night.
[2020-09-15 06:01] LABS: BASOPHILS ABSOLUTE AUTO 0.06 K/mm3 (0.00-0.23); BASOPHILS PERCENT AUTO 0 % (0-2); EOSINOPHILS PERCENT AUTO 0 % (0-6); Hematocrit 45.4 % (33.0-51.0); Hemoglobin 14.2 g/dL (11.5-16.0); IMMATURE GRAN ABSOLUTE AUTO 0.65 K/mm3 (0.00-0.10); IMMATURE GRAN PERCENT AUTO 3 % (0-1); LYMPHOCYTES ABSOLUTE AUTO 0.84 K/mm3 (0.84-5.20); LYMPHOCYTES PERCENT AUTO 4 % (21-46); MONOCYTES ABSOLUTE AUTO 0.64 K/mm3 (0.16-1.47); MONOCYTES PERCENT AUTO 3 % (4-13); Mean Corpuscular HGB 29.4 pg (26.0-34.0); Mean Corpuscular HGB Conc 31.3 g/dL (31.5-36.5); Mean Corpuscular Volume 94 fL (80-100); Mean Platelet Volume 10.3 fL (9.1-12.4); NEUTROPHILS ABSOLUTE AUTO 18.72 K/mm3 (1.96-9.15); NEUTROPHILS PERCENT AUTO 90 % (41-73); Platelet Count 271 K/mm3 (150-400); RDW Coefficient Variation 13.2 % (11.7-14.2); RDW Standard Deviation 46.2 fL (35.1-46.3); Red Blood Cell Count 4.83 M/mm3 (3.80-5.20); White Blood Cell Count 20.91 K/mm3 (4.00-11.30)
[2020-09-15 06:36] LABS: Anion Gap 5 mmol/L (6-16); Blood Urea Nitrogen 14 mg/dL (8-24); CO2, Blood 26 mmol/L (21-32); Calcium, Blood 8.7 mg/dL (8.5-10.1); Chloride, Blood 108 mmol/L (98-108); Creatinine, Blood 0.82 mg/dL (0.40-1.00); Glomerular Filtration Rate >60 (60-); Glucose, Blood 175 mg/dL (70-99); Potassium, Blood 4.5 mmol/L (3.5-5.5); Sodium, Blood 139 mmol/L (136-145)
--- NOTE | 2020-09-15 11:19 | NUR ---
SHE HAD PART OF HER BREAKFAST THEN LATER A HALF SANDWICH. IV STEROID GIVEN THIS AM AMONG HER OTHER SCHEDULED MEDICATIONS. SHE ALSO RECEIVED A LIDOCAINE PATCH AND TYLENOL #3 FOR HER L RIBCAGE PAIN. SHE IS ON RA AND UP ADLIB TO THE BATHROOM. SHE HAS BEEN LAYING ON HER R SIDE MOST OF THE MORNING. TELE NSR.
--- NOTE | 2020-09-15 13:49 | NUR ---
SHE DOESN'T LIKE THE HOSPITAL FOOD BUT EATS A PORTION OF EACH MEAL SERVED TO HER. THE TYLENOL #3 DECREASED HER PAIN IN HER L RIBCAGE. SHE SHOWERED. TELE RESUMED AFTER, NSR 98. NO NEW COMPLAINTS.
--- NOTE | 2020-09-15 18:10 | NUR ---
SHE CONTINUES TO RECEIVE SOLUMEDROL Q8 HRS. SHE RECEIVED TYL #3 ONCE TODAY FOR L RIBCAGE PAIN. SHE SHOWERED. HER TELE IS NSR. WBC'S REMAINED THE SAME TODAY YESTERDAY. VSS. NO FEVER. SHE IS LESS WHEEZY AND TIGHT TODAY.
[2020-09-16 05:15] LABS: Alanine Aminotransfer (ALT/SGP 52 U/L (12-78); Albumin, Blood 3.4 g/dL (3.4-5.0); Albumin/Globulin Ratio 1.1 (0.8-1.8); Alk Phos 92 U/L (50-136); Anion Gap 5 mmol/L (6-16); Aspartate Aminotrans (AST/SGOT 19 U/L (12-37); Bilirubin, Total 0.3 mg/dL (0.1-1.0); Blood Urea Nitrogen 19 mg/dL (8-24); Bun/Creatinine Ratio 20.9 (12.0-20.0); CO2, Blood 30 mmol/L (21-32); Calcium, Blood 8.9 mg/dL (8.5-10.1); Chloride, Blood 105 mmol/L (98-108); Creatinine, Blood 0.91 mg/dL (0.40-1.00); Globulin, Blood 3.1 g/dL (2.2-4.0); Glomerular Filtration Rate >60 (60-); Glucose, Blood 143 mg/dL (70-99); Sodium, Blood 140 mmol/L (136-145); Total Protein, Blood 6.5 g/dL (6.4-8.2)
--- NOTE | 2020-09-16 07:20 | NUR ---
SHIFT SUMMARY PT IS A 24 Y/O FEMALE, ADMITTED FOR ASTHMA EXACERBATION. SHE IS A&O X 4, INDEPENDENT TO THE BATHROOM. NO C/O PAIN, NAUSEA OR ACUTE SOB, AND REPORTS THAT HER CHEST TIGHTNESS IS "BETTER THAN IT WAS WHEN I CAME IN". VITAL SIGNS STABLE. NO ACUTE CHANGES IN PT CONDITION NOTED. REPORT GIVEN TO ONCOMING RN.
[2020-09-16] MEDS ORDERED: CODACE30 PO (10:33)
[2020-09-16] MEDS ORDERED: ACET325 PO (10:33)
[2020-09-16] MEDS ORDERED: FAMO20 PO (10:34)
[2020-09-16] MEDS ORDERED: Guaifenesin Wit10 ML PO (10:34)
[2020-09-16] MEDS ORDERED: LIDOCAINE1 EAC1 TOP (10:34)
[2020-09-16] MEDS ORDERED: TERB250 PO (10:35)
[2020-09-16] MEDS ORDERED: CALCIUM CARBON500 M1 PO (10:38)
[2020-09-16] MEDS ORDERED: ALENDRONATE SOD PO (10:38)
[2020-09-16] MEDS ORDERED: PRED20 PO (10:40)
--- NOTE | 2020-09-16 11:33 | NUR ---
DISCHARGED TO HOME WITH FAMILY AT 1045 WITH BELONGINGS AND INSTRUCTIONS. HER TELE RED NSR 90'S TO 100 BEFORE IT WAS DC'D. SHE RECEIVED HER LAST DOSE OF IV STEROID THIS AM. SHE HAS WRITTEN RX'S FOR HER COUGH SYRUP AND HER PAIN PILLS. SHE IS FULLY AMBULATORY BUT HAS ONLY WALKED IN HER ROOM. SHE IS GLAD TO GO HOME.
== END 2020-09-16 10:52 | disposition home or self-care (01) | DRG 202 ==
LOC: ER 08:29 → MEDS 10:51
PROVIDERS: Physician Assistant; ADMIT Internal Medicine
DX: J45.50 Severe persistent asthma, uncomplicated (principal); J96.11 Chronic respiratory failure with hypoxia; Z68.41 Body mass index [BMI] 40.0-44.9, adult; K21.9 Gastro-esophageal reflux disease without esophagitis; F41.8 Other specified anxiety disorders; Z99.81 Dependence on supplemental oxygen; E66.01 Morbid (severe) obesity due to excess calories; M79.7 Fibromyalgia; B35.4 Tinea corporis; M81.0 Age-related osteoporosis without current pathological fracture; J45.51 Severe persistent asthma with (acute) exacerbation
CPT/HCPCS: 0241U; 36415; 71045; 80048; 80053; 82803; 85025; 93005; 93010; 94640; 94644; 94760; 96365; 96366; 96375; 99285-25; A9270-GY; J2930; J3010; J3475

== ENCOUNTER 2020-09-29 13:32 | Inpatient (IN) | payer OTHER ==
[~2020-09-29] VITALS: Ht 177.8 cm; Wt 125.0 kg
[~2020-09-29 13:32] MED LIST changes: -ALBU90OI INH; -BENZ100A PO; +CODACE30 PO; -CYCL10 PO; +FAMO20 PO; -FERSU300 PO; -FURO20 PO; +Guaifenesin Wit10 ML PO; -IPRAT-ALBUT 0.5-3 ML NEB; -MONT10T PO; -OMEP20ER PO; -Prozac20 MG PO; -SYMBICORT 160-4.6 GM INH; +TERB250 PO; -TUDORZA PRESS400 MC1 INH; -VITAMIN D5000 UNIT PO
[2020-09-29 14:36] LABS: BASOPHILS ABSOLUTE AUTO 0.07 K/mm3 (0.00-0.23); BASOPHILS PERCENT AUTO 0 % (0-2); EOSINOPHILS ABSOLUTE AUTO 0.13 K/mm3 (0.00-0.68); EOSINOPHILS PERCENT AUTO 1 % (0-6); Hemoglobin 14.3 g/dL (11.5-16.0); IMMATURE GRAN ABSOLUTE AUTO 0.45 K/mm3 (0.00-0.10); IMMATURE GRAN PERCENT AUTO 3 % (0-1); LYMPHOCYTES ABSOLUTE AUTO 1.08 K/mm3 (0.84-5.20); LYMPHOCYTES PERCENT AUTO 6 % (21-46); MONOCYTES ABSOLUTE AUTO 0.77 K/mm3 (0.16-1.47); MONOCYTES PERCENT AUTO 4 % (4-13); Mean Corpuscular HGB 29.9 pg (26.0-34.0); Mean Corpuscular HGB Conc 32.5 g/dL (31.5-36.5); Mean Corpuscular Volume 92 fL (80-100); Mean Platelet Volume 10.5 fL (9.1-12.4); NEUTROPHILS ABSOLUTE AUTO 15.38 K/mm3 (1.96-9.15); NEUTROPHILS PERCENT AUTO 86 % (41-73); Platelet Count 210 K/mm3 (150-400); RDW Coefficient Variation 13.5 % (11.7-14.2); RDW Standard Deviation 45.4 fL (35.1-46.3); Red Blood Cell Count 4.79 M/mm3 (3.80-5.20); White Blood Cell Count 17.88 K/mm3 (4.00-11.30)
[2020-09-29 14:57] LABS: Alanine Aminotransfer (ALT/SGP 48 U/L (12-78); Albumin, Blood 3.6 g/dL (3.4-5.0); Albumin/Globulin Ratio 1.2 (0.8-1.8); Alk Phos 95 U/L (50-136); Anion Gap 9 mmol/L (6-16); Aspartate Aminotrans (AST/SGOT 14 U/L (12-37); Bilirubin, Total 0.4 mg/dL (0.1-1.0); Blood Urea Nitrogen 6 mg/dL (8-24); Bun/Creatinine Ratio 7.5 (12.0-20.0); CO2, Blood 24 mmol/L (21-32); Chloride, Blood 108 mmol/L (98-108); Globulin, Blood 2.9 g/dL (2.2-4.0); Glomerular Filtration Rate >60 (60-); Glucose, Blood 112 mg/dL (70-99); Potassium, Blood 3.6 mmol/L (3.5-5.5); Sodium, Blood 141 mmol/L (136-145); Total Protein, Blood 6.5 g/dL (6.4-8.2); Troponin I <0.015 ng/mL (0.000-0.040)
[2020-09-29] MEDS ORDERED: TRAM50 PO (16:06)
[2020-09-30 01:29] LABS: Influenza A, PCR Negative (NEGATIVE); Influenza B, PCR Negative (NEGATIVE); Resp Syncytial Virus, PCR Negative (NEGATIVE); SARS-Cov-2 (COVID-19) PCR, MMC Negative (NEGATIVE)
[2020-09-30 04:59] LABS: BASOPHILS ABSOLUTE AUTO 0.05 K/mm3 (0.00-0.23); BASOPHILS PERCENT AUTO 0 % (0-2); EOSINOPHILS ABSOLUTE AUTO 0.01 K/mm3 (0.00-0.68); EOSINOPHILS PERCENT AUTO 0 % (0-6); Hematocrit 46.6 % (33.0-51.0); Hemoglobin 14.5 g/dL (11.5-16.0); IMMATURE GRAN ABSOLUTE AUTO 0.31 K/mm3 (0.00-0.10); IMMATURE GRAN PERCENT AUTO 2 % (0-1); LYMPHOCYTES ABSOLUTE AUTO 0.79 K/mm3 (0.84-5.20); LYMPHOCYTES PERCENT AUTO 6 % (21-46); MONOCYTES ABSOLUTE AUTO 0.17 K/mm3 (0.16-1.47); MONOCYTES PERCENT AUTO 1 % (4-13); Mean Corpuscular HGB 29.1 pg (26.0-34.0); Mean Corpuscular HGB Conc 31.1 g/dL (31.5-36.5); Mean Corpuscular Volume 94 fL (80-100); Mean Platelet Volume 10.2 fL (9.1-12.4); NEUTROPHILS ABSOLUTE AUTO 13.08 K/mm3 (1.96-9.15); NEUTROPHILS PERCENT AUTO 91 % (41-73); Platelet Count 234 K/mm3 (150-400); RDW Coefficient Variation 13.4 % (11.7-14.2); RDW Standard Deviation 46.5 fL (35.1-46.3); Red Blood Cell Count 4.98 M/mm3 (3.80-5.20); White Blood Cell Count 14.41 K/mm3 (4.00-11.30)
--- NOTE | 2020-09-30 05:00 | NUR ---
SHIFT SUMMARY: VSS. AFEB. 02 96-97% ON 3L VIA NC. EXERTIONAL DYSPNEA. OCC DRY COUGH. LS W/ INSP AND EXP WHEEZE THROUGHOUT. RESPS SHALLOW, EVEN, NON-LABORED. REPORTING CONT L SIDE/RIB PAIN INCREASING W/ MOVEMENT AND COUGHING. COLD PACK APPLIED. IV MORPHINE X 2 FOR PAIN, PT STATES HELPFUL. IND IN ROOM, COMMUNICATES NEEDS. NO ACUTE CHANGES OVERNIGHT. WILL CONT TO MONITOR.
[2020-09-30 05:26] LABS: Alanine Aminotransfer (ALT/SGP 47 U/L (12-78); Albumin, Blood 3.6 g/dL (3.4-5.0); Albumin/Globulin Ratio 1.1 (0.8-1.8); Alk Phos 100 U/L (50-136); Anion Gap 4 mmol/L (6-16); Aspartate Aminotrans (AST/SGOT 12 U/L (12-37); Bilirubin, Total 0.5 mg/dL (0.1-1.0); Blood Urea Nitrogen 10 mg/dL (8-24); Bun/Creatinine Ratio 12.6 (12.0-20.0); CO2, Blood 29 mmol/L (21-32); Calcium, Blood 9.1 mg/dL (8.5-10.1); Chloride, Blood 105 mmol/L (98-108); Globulin, Blood 3.3 g/dL (2.2-4.0); Glomerular Filtration Rate >60 (60-); Glucose, Blood 135 mg/dL (70-99); Magnesium, Blood 2.1 mg/dL (1.6-2.4); Potassium, Blood 4.6 mmol/L (3.5-5.5); Sodium, Blood 138 mmol/L (136-145); Total Protein, Blood 6.9 g/dL (6.4-8.2)
--- NOTE | 2020-09-30 17:06 | NUR ---
Shift Summary A/Ox4, pleasant and cooperative. Medicated for sharp L rib pain x 4 with good effect. Up independently, calls appropriately. Appetite is good. Lung sounds remain wheezy both with inspirations and expirations, patient states baseline. Nonproductive cough. No acute changes since start of shift. WCTM.
--- NOTE | 2020-10-01 06:25 | NUR ---
SHIFT SUMMARY: VSS. AFEB. 02 92-95% ON 3L VIA NC. PT STATES SOB IS TOLERABLE. RESPS EVEN, NON-LABORED, SHALLOW. INSP/EXP WHEEZING THROUGHOUT LUNGS. OCCASIONAL DRY COUGH. SOLUMEDROL PER ORDERS. CONT W/ L SIDED RIB PAIN. MORPHINE EFFECTIVELY MANAGING PAIN. INDEPENDENT IN ROOM. NO ACUTE CHANGES OVERNIGHT.
--- NOTE | 2020-10-01 18:16 | NUR ---
DC NOTE PT IS A&OX4. PT ABLE TO MAKE NEEDS KNOWN. PT COMPLAINED OF PAIN IN THE RIBS DURING SHIFT AND WAS MEDICATED PER EMAR. PT DENIED N/V. PT STATED ORAL PAIN MEDICATION HELPED AND SHE WAS ABLE TO MANAGED IT AT HOME. PT DC HOME. WENT OVER PT DC PAPERWORK WITH PT. PT STATED UNDERSTANDING HOW TO OSWALDO THE PREDNISON. TOOK OUT PT IV. PT DECLINED W/C OFF FLOOR AND WANTED TO WALK BY HERSELF TO EXIT. PT LEFT ROOM APROX [id number]
[2021-01-14] MEDS ORDERED: CEPH500 PO (12:45)
[2021-01-14] MEDS ORDERED: Prednisone10 MG PO ×2 (12:47→12:48)
[2021-01-14] MEDS ORDERED: Prednisone10 M1 PO (12:48)
[2021-01-14] MEDS ORDERED: HYDR1TAB94 PO (14:08)
== END 2020-10-01 17:49 | disposition home or self-care (01) | DRG 543 ==
LOC: ER 13:32 → MEDS 18:01
PROVIDERS: Internal Medicine; Physician Assistant; ADMIT Internal Medicine
DX: M80.8AXA Other osteoporosis with current pathological fracture, other site, initial encounter for fracture (principal); J45.52 Severe persistent asthma with status asthmaticus; J96.11 Chronic respiratory failure with hypoxia; Z68.41 Body mass index [BMI] 40.0-44.9, adult; E66.01 Morbid (severe) obesity due to excess calories; M79.7 Fibromyalgia; Z79.52 Long term (current) use of systemic steroids; Z99.81 Dependence on supplemental oxygen; J44.9 Chronic obstructive pulmonary disease, unspecified; F41.1 Generalized anxiety disorder; F32.9 Major depressive disorder, single episode, unspecified
CPT/HCPCS: 0241U; 36415; 71045; 71260; 80053; 83735; 84484; 85025; 93005; 93010; 94640; 94760; 96374; 96375; 99285-25; A9270; J2270; J2405; J2930; J3010; Q9967

== ENCOUNTER 2020-10-28 14:33 | Inpatient (IN) | payer OTHER ==
[~2020-10-28] VITALS: Ht 177.8 cm; Wt 129.3 kg
[2020-10-28 15:00] LABS: BASOPHILS ABSOLUTE AUTO 0.07 K/mm3 (0.00-0.23); BASOPHILS PERCENT AUTO 1 % (0-2); EOSINOPHILS ABSOLUTE AUTO 0.22 K/mm3 (0.00-0.68); EOSINOPHILS PERCENT AUTO 2 % (0-6); Hematocrit 44.2 % (33.0-51.0); Hemoglobin 14.4 g/dL (11.5-16.0); IMMATURE GRAN ABSOLUTE AUTO 0.57 K/mm3 (0.00-0.10); IMMATURE GRAN PERCENT AUTO 4 % (0-1); LYMPHOCYTES ABSOLUTE AUTO 2.96 K/mm3 (0.84-5.20); LYMPHOCYTES PERCENT AUTO 22 % (21-46); MONOCYTES ABSOLUTE AUTO 1.12 K/mm3 (0.16-1.47); MONOCYTES PERCENT AUTO 8 % (4-13); Mean Corpuscular HGB 29.3 pg (26.0-34.0); Mean Corpuscular HGB Conc 32.6 g/dL (31.5-36.5); Mean Corpuscular Volume 90 fL (80-100); Mean Platelet Volume 10.2 fL (9.1-12.4); NEUTROPHILS ABSOLUTE AUTO 8.53 K/mm3 (1.96-9.15); NEUTROPHILS PERCENT AUTO 63 % (41-73); Platelet Count 236 K/mm3 (150-400); RDW Coefficient Variation 13.6 % (11.7-14.2); RDW Standard Deviation 44.1 fL (35.1-46.3); Red Blood Cell Count 4.92 M/mm3 (3.80-5.20); White Blood Cell Count 13.47 K/mm3 (4.00-11.30)
[2020-10-28 15:24] LABS: Alanine Aminotransfer (ALT/SGP 53 U/L (12-78); Albumin, Blood 3.8 g/dL (3.4-5.0); Albumin/Globulin Ratio 1.4 (0.8-1.8); Alk Phos 94 U/L (50-136); Anion Gap 7 mmol/L (6-16); Aspartate Aminotrans (AST/SGOT 14 U/L (12-37); Bilirubin, Total 0.5 mg/dL (0.1-1.0); Blood Urea Nitrogen 12 mg/dL (8-24); Bun/Creatinine Ratio 14.1 (12.0-20.0); CO2, Blood 25 mmol/L (21-32); Calcium, Blood 8.6 mg/dL (8.5-10.1); Chloride, Blood 110 mmol/L (98-108); Creatinine, Blood 0.85 mg/dL (0.40-1.00); Globulin, Blood 2.8 g/dL (2.2-4.0); Glomerular Filtration Rate >60 (60-); Glucose, Blood 109 mg/dL (70-99); Potassium, Blood 3.5 mmol/L (3.5-5.5); Sodium, Blood 142 mmol/L (136-145); Total Protein, Blood 6.6 g/dL (6.4-8.2)
--- NOTE | 2020-10-28 18:08 | NUR ---
SHIFT SUMMARY ED ADMIT THIS EVENING. PATIENT MAINTAINING OXYGEN SATURATION ABOVE 93% ON 3L/NC. PATIENT WEARS 3L AT BASELINE. PATIENT DENIES SHORTNESS OF BREATH AT THIS TIME. ABLE TO CONVERSE WITH EASE. UP INDEPENDENT IN ROOM.
--- NOTE | 2020-10-29 04:36 | NUR ---
SHIFT SUMMARY PT REMAINED ON HER BASELINE OF 3 L NC THROUGH MOST OF THE NIGHT WITH O2 SATS INITIALLY IN THE LOW TO MID 90'S. THIS AM PT'S O2 SATS WERE 89% SO O2 WAS TURNED UP TO 4 L. PT DENIES ANY INCREASED SOB. LUNG SOUNDS WHEEZY THROUGHOUT. BREATHING TX'S PROVIDED BY RT THROUGHOUT THE NIGHT. NO COMPLAINTS OF PAIN. PT APPEARED TO SLEEP MUCH OF THE NIGHT WITH NO COMPLAINTS. TELE REPORTED THAT PT WAS IN THE 90'S MOST OF THE SHIFT, OCCASSIONALLY WOULD GET TACHYCARDIC INTO THE 110'S. VITAL SIGNS STABLE. WILL CONTINUE TO MONITOR.
[2020-10-29 05:12] LABS: BASOPHILS ABSOLUTE AUTO 0.03 K/mm3 (0.00-0.23); BASOPHILS PERCENT AUTO 0 % (0-2); EOSINOPHILS PERCENT AUTO 0 % (0-6); Hematocrit 45.7 % (33.0-51.0); Hemoglobin 14.7 g/dL (11.5-16.0); IMMATURE GRAN ABSOLUTE AUTO 0.49 K/mm3 (0.00-0.10); IMMATURE GRAN PERCENT AUTO 4 % (0-1); LYMPHOCYTES ABSOLUTE AUTO 0.91 K/mm3 (0.84-5.20); LYMPHOCYTES PERCENT AUTO 8 % (21-46); MONOCYTES ABSOLUTE AUTO 0.33 K/mm3 (0.16-1.47); MONOCYTES PERCENT AUTO 3 % (4-13); Mean Corpuscular HGB 29.3 pg (26.0-34.0); Mean Corpuscular HGB Conc 32.2 g/dL (31.5-36.5); Mean Corpuscular Volume 91 fL (80-100); Mean Platelet Volume 10.6 fL (9.1-12.4); NEUTROPHILS ABSOLUTE AUTO 10.13 K/mm3 (1.96-9.15); NEUTROPHILS PERCENT AUTO 85 % (41-73); Platelet Count 243 K/mm3 (150-400); RDW Coefficient Variation 13.8 % (11.7-14.2); RDW Standard Deviation 46.3 fL (35.1-46.3); Red Blood Cell Count 5.01 M/mm3 (3.80-5.20); White Blood Cell Count 11.89 K/mm3 (4.00-11.30)
[2020-10-29 05:36] LABS: Anion Gap 6 mmol/L (6-16); Blood Urea Nitrogen 11 mg/dL (8-24); Bun/Creatinine Ratio 14.9 (12.0-20.0); CO2, Blood 24 mmol/L (21-32); Calcium, Blood 9.2 mg/dL (8.5-10.1); Chloride, Blood 110 mmol/L (98-108); Creatinine, Blood 0.74 mg/dL (0.40-1.00); Glomerular Filtration Rate >60 (60-); Glucose, Blood 134 mg/dL (70-99); Potassium, Blood 4.6 mmol/L (3.5-5.5); Sodium, Blood 140 mmol/L (136-145)
--- NOTE | 2020-10-29 16:23 | NUR ---
SHIFT SUMMARY PATIENT MEDICATED X1 FOR RIB PAIN THIS SHIFT, LIDO PATCH IN PLACE. INDEPENDENT IN ROOM. PATIENT MAINTAINING OXYGEN SATURATION AT 95% ON 3L/NC. LUNGS WHEEZY THROUGHOUT. TELE SHOWING NSR. PLEASANT AND COOPERATIVE WITH CARE.
--- NOTE | 2020-10-30 06:26 | NUR ---
SHIFT SUMMARY: 24 Y/O OBESE FEMALE RESTED COMFORTABLY ALL SHIFT HIGH FOWLERS; PTS LUNG SOUNDS ARE WHEEZING THROUGHOUT WITH OCCASIONAL NON PRODUCTIVE COUGH; DENIES PAIN OR NAUSEA; WEARING O2 AT 3L/M PER NASAL CANNULA; HAPPY AND COOPERATIVE WITH STAFF; BED LOW POSITION WITH CALL LIGHT AT SIDE.
--- NOTE | 2020-10-30 17:52 | NUR ---
SHIFT SUMMARY PT AOX4; CALLS APPROPRIATELY. PT INDEPENDENT IN THE ROOM. ON 3L OF O2 AT BASELINE. PT IS RECEIVING OXYCODONE FOR PAIN AND TORADOL. PT C/O RIB PAIN FROM COUGHING. PT GIVEN COUGH MEDICINEX1 THIS AFTERNOON. PT STILL WORRYING ABOUT HER BACK RASH; PT IS ALREADY RECEIVING LAMISIL. BED IS IN THE LOWEST POSITION AND CALL LIGHT WITHIN REACH
--- NOTE | 2020-10-31 07:29 | NUR ---
SHIFT SUMMARY: PATIENT IS A&OX4, VSS, INDEPENDANT IN ROOM. MAINTAINED 02 SATS 95%-97% ON 3L NC, WHICH IS BASELINE. NO RESPIRATORY DISTRESS OBSERVED THIS SHIFT.
--- NOTE | 2020-10-31 14:36 | NUR ---
PATIENT IS ALERT AND ORIENTED; INDEPENDENT IN ROOM. REMAINS ON 3L O2 NC WHICH IS THE PATIENT'S BASELINE. NO COMPLAINTS OF PAIN OR DISCOMFORT. VITALS ARE STABLE. PLEASANT AND COOPERATIVE WITH STAFF AND PROVIDED CARE. NO ACUTE CHANGES AT THIS TIME.
--- NOTE | 2020-11-01 06:08 | NUR ---
Rn summary: Patient is a delightful positive young woman. Pt breath sounds with expiratory courseness and Fine ispiratory wheeze. Pt is on 3 L O2 which is her baseline. Patient has Left rib pain and received toradol 30mg and oxy 5 mg x2 for 8/10 pain. Patient slept only fair. Pt is hopeful to be discharged today.
--- NOTE | 2020-11-01 12:57 | NUR ---
SHE DISCHARGED TO HOME AT 1030 WITH HER BELONGINGS AND INSTRUCTIONS. NO COMPLAINTS AND HAPPY TO GO HOME. SHE UNDERSTANDS THE TAPERING PREDNISONE.
[2021-01-14] MEDS ORDERED: CEPH500 PO (12:45)
[2021-01-14] MEDS ORDERED: Prednisone10 MG PO ×2 (12:47→12:48)
[2021-01-14] MEDS ORDERED: Prednisone10 M1 PO (12:48)
[2021-01-14] MEDS ORDERED: HYDR1TAB94 PO (14:08)
== END 2020-11-01 12:22 | disposition home or self-care (01) | DRG 203 ==
LOC: ER 14:33 → ERHOLD 14:34 → MEDS 14:34
PROVIDERS: Physician Assistant; ADMIT Family Medicine
DX: J45.901 Unspecified asthma with (acute) exacerbation (principal); Z99.81 Dependence on supplemental oxygen; J44.9 Chronic obstructive pulmonary disease, unspecified; E66.9 Obesity, unspecified; F32.9 Major depressive disorder, single episode, unspecified; K21.9 Gastro-esophageal reflux disease without esophagitis; M81.0 Age-related osteoporosis without current pathological fracture; L27.0 Generalized skin eruption due to drugs and medicaments taken internally
CPT/HCPCS: 36415; 71046; 80048; 80053; 83880; 85025; 94640; 94644; 94760; 96374; 99285-25; A9270; J1885; J2930

== ENCOUNTER → 2020-11-07 | Outpatient (CLI) | payer OTHER ==
[~2020-11-07] MED LIST changes: +ALBU90OI INH; +ALENDRONATE SOD PO; +BENZ100A PO; +CALCIUM CARBON500 M1 PO; +CEPH500 PO; +CYCL10 PO; +DICLOFENAC SOD100 GM TP; +FERSU300 PO; +FLUT1DIS2 INH; +FURO20 PO; +IPRAT-ALBUT 0.5-3 ML NEB; +LIDOCAINE1 EAC1 TOP; +MONT10T PO; +OMEP20ER PO; +OXAYDO5 M1 PO; +Prednisone10 M1 PO; +Prinivil10 MG PO; +Prozac20 MG PO; +ROXICODONE5 MG PO; +SYMBICORT 160-4.6 GM INH; +TUDORZA PRESS400 MC1 INH; +VITAMIN D5000 UNIT PO; +ZANAFLEX4 M4 PO
== END | disposition home or self-care (01) ==
LOC: PLD 17:57 → LAB SHORT 17:57
DX: N39.0 Urinary tract infection, site not specified (principal)
CPT/HCPCS: 87077; 87086; 87186

== ENCOUNTER → 2020-11-20 | Outpatient (CLI) | payer OTHER | END | disposition home or self-care (01) | LOC: LAB 17:54 → LAB SHORT 17:54 | PROVIDERS: Family Medicine | DX: Z01.419 Encounter for gynecological examination (general) (routine) without abnormal findings (principal) | CPT/HCPCS: G0123 ==

== ENCOUNTER 2020-11-26 09:11 | Emergency (ER) | payer OTHER ==
[~2020-11-26] VITALS: Ht 177.8 cm; Wt 129.3 kg
[~2020-11-26 09:11] MED LIST changes: -ALBU90OI INH; -ALENDRONATE SOD PO; -BENZ100A PO; -CALCIUM CARBON500 M1 PO; -CEPH500 PO; -CYCL10 PO; -DICLOFENAC SOD100 GM TP; -FERSU300 PO; -FLUT1DIS2 INH; -FURO20 PO; -IPRAT-ALBUT 0.5-3 ML NEB; -LIDOCAINE1 EAC1 TOP; -MONT10T PO; -OMEP20ER PO; -OXAYDO5 M1 PO; -Prednisone10 M1 PO; -Prinivil10 MG PO; -Prozac20 MG PO; -ROXICODONE5 MG PO; -SYMBICORT 160-4.6 GM INH; -TUDORZA PRESS400 MC1 INH; -VITAMIN D5000 UNIT PO; -ZANAFLEX4 M4 PO
[2020-11-26 09:50] LABS: BASOPHILS PERCENT AUTO 1 % (0-2); EOSINOPHILS ABSOLUTE AUTO 0.17 K/mm3 (0.00-0.68); EOSINOPHILS PERCENT AUTO 1 % (0-6); Hematocrit 44.7 % (33.0-51.0); Hemoglobin 14.5 g/dL (11.5-16.0); IMMATURE GRAN ABSOLUTE AUTO 0.53 K/mm3 (0.00-0.10); IMMATURE GRAN PERCENT AUTO 4 % (0-1); LYMPHOCYTES PERCENT AUTO 24 % (21-46); MONOCYTES ABSOLUTE AUTO 1.01 K/mm3 (0.16-1.47); MONOCYTES PERCENT AUTO 8 % (4-13); Mean Corpuscular HGB 29.7 pg (26.0-34.0); Mean Corpuscular HGB Conc 32.4 g/dL (31.5-36.5); Mean Corpuscular Volume 91 fL (80-100); NEUTROPHILS ABSOLUTE AUTO 8.07 K/mm3 (1.96-9.15); NEUTROPHILS PERCENT AUTO 62 % (41-73); Platelet Count 268 K/mm3 (150-400); RDW Coefficient Variation 13.7 % (11.7-14.2); RDW Standard Deviation 45.8 fL (35.1-46.3); Red Blood Cell Count 4.89 M/mm3 (3.80-5.20); White Blood Cell Count 12.98 K/mm3 (4.00-11.30)
[2020-11-26 10:02] LABS: Alanine Aminotransfer (ALT/SGP 46 U/L (12-78); Albumin, Blood 3.7 g/dL (3.4-5.0); Albumin/Globulin Ratio 1.2 (0.8-1.8); Alk Phos 83 U/L (50-136); Anion Gap 9 mmol/L (6-16); Aspartate Aminotrans (AST/SGOT 13 U/L (12-37); Bilirubin, Total 0.5 mg/dL (0.1-1.0); Blood Urea Nitrogen 10 mg/dL (8-24); Bun/Creatinine Ratio 12.4 (12.0-20.0); CO2, Blood 25 mmol/L (21-32); Calcium, Blood 8.6 mg/dL (8.5-10.1); Chloride, Blood 111 mmol/L (98-108); Creatinine, Blood 0.81 mg/dL (0.40-1.00); Glomerular Filtration Rate >60 (60-); Glucose, Blood 86 mg/dL (70-99); Potassium, Blood 3.7 mmol/L (3.5-5.5); Sodium, Blood 145 mmol/L (136-145); Total Protein, Blood 6.7 g/dL (6.4-8.2); Troponin I <0.015 ng/mL (0.000-0.040)
[2020-11-26 10:04] LABS: Base Excess Venous 0.4 mmol/L; Bicarbonate Venous 25.3 mmol/L (24.0-30.0); PCO2 Venous 33.6 mmHg (38-42); PO2 Venous 146 mmHg (38-42); pH Blood Venous 7.47 (7.34-7.37)
[2021-01-14] MEDS ORDERED: CEPH500 PO (12:45)
[2021-01-14] MEDS ORDERED: Prednisone10 MG PO ×2 (12:47→12:48)
[2021-01-14] MEDS ORDERED: Prednisone10 M1 PO (12:48)
[2021-01-14] MEDS ORDERED: HYDR1TAB94 PO (14:08)
== END 2020-11-26 12:50 | disposition home or self-care (01) ==
LOC: ER 09:11
PROVIDERS: Emergency Medicine
DX: J45.901 Unspecified asthma with (acute) exacerbation (principal); Z79.899 Other long term (current) drug therapy; Z79.51 Long term (current) use of inhaled steroids; Z79.52 Long term (current) use of systemic steroids
CPT/HCPCS: 36415; 71045; 80053; 82803; 83880; 84484; 85025; 93005; 93010; 94640; 94644; 96365; 96366; 96375; 99285-25; J2930; J3010; J3475

== ENCOUNTER 2020-12-14 01:08 | Emergency (ER) | payer OTHER ==
[~2020-12-14] VITALS: Ht 177.8 cm; Wt 129.3 kg
[2020-12-14] MEDS ORDERED: Prozac20 MG PO (17:30)
[2020-12-14] MEDS ORDERED: IPRAT-ALBUT 0.5-3 ML NEB (17:31)
[2020-12-14] MEDS ORDERED: HYDCHL25 PO (17:31)
[2020-12-14] MEDS ORDERED: SYMBICORT 160-4.6 GM INH (17:32)
[2020-12-14] MEDS ORDERED: TUDORZA PRESS400 MC1 INH (17:33)
[2020-12-14] MEDS ORDERED: ZANAFLEX4 M4 PO (17:33)
[2020-12-14] MEDS ORDERED: ALBU90OI INH (17:33)
[2020-12-14] MEDS ORDERED: COMBIVENT RESPIM4 G1 INH (17:35)
[2020-12-14] MEDS ORDERED: Cetirizine HCl10 MG PO (17:36)
[2020-12-14] MEDS ORDERED: BUSP10 PO (17:36)
[2020-12-14] MEDS ORDERED: PRED20 PO (17:36)
[2020-12-14] MEDS ORDERED: OMEP20ER PO (17:37)
[2020-12-14] MEDS ORDERED: FURO20 PO (17:37)
[2020-12-14] MEDS ORDERED: ALENDRONATE SOD PO (17:45)
[2020-12-14] MEDS ORDERED: MONT10T PO (17:45)
[2020-12-14] MEDS ORDERED: XANAX0.25 MG PO (17:45)
[2020-12-14] MEDS ORDERED: LIDOCAINE1 EAC1 TOP (17:45)
[2020-12-14] MEDS ORDERED: CYCL10 PO (17:45)
[2020-12-14] MEDS ORDERED: VITAMIN D5000 UNIT PO (17:45)
[2020-12-14] MEDS ORDERED: MAGNESIUM OXID500 MG PO (17:45)
[2020-12-14] MEDS ORDERED: ACET325 PO (17:45)
[2020-12-14] MEDS ORDERED: FERSU300 PO (17:45)
[2020-12-14] MEDS ORDERED: BENZ100A PO (17:45)
[2020-12-14] MEDS ORDERED: OXAYDO5 M1 PO (17:46)
[2020-12-14] MEDS ORDERED: CALCIUM CARBON500 M1 PO (17:46)
[2021-01-14] MEDS ORDERED: CEPH500 PO (12:45)
[2021-01-14] MEDS ORDERED: Prednisone10 MG PO ×2 (12:47→12:48)
[2021-01-14] MEDS ORDERED: Prednisone10 M1 PO (12:48)
[2021-01-14] MEDS ORDERED: HYDR1TAB94 PO (14:08)
== END 2020-12-14 02:51 | disposition left against medical advice (07) ==
LOC: ER 01:08
DX: Z53.21 Procedure and treatment not carried out due to patient leaving prior to being seen by health care provider (principal)

== ENCOUNTER 2020-12-14 15:53 | Inpatient (IN) | payer MEDICARE, OTHER ==
[~2020-12-14] VITALS: Ht 177.8 cm; Wt 129.3 kg
[2020-12-14 16:24] LABS: BASOPHILS ABSOLUTE AUTO 0.08 K/mm3 (0.00-0.23); BASOPHILS PERCENT AUTO 0 % (0-2); EOSINOPHILS PERCENT AUTO 1 % (0-6); Hematocrit 47.1 % (33.0-51.0); Hemoglobin 15.7 g/dL (11.5-16.0); IMMATURE GRAN ABSOLUTE AUTO 0.45 K/mm3 (0.00-0.10); IMMATURE GRAN PERCENT AUTO 3 % (0-1); LYMPHOCYTES ABSOLUTE AUTO 2.13 K/mm3 (0.84-5.20); LYMPHOCYTES PERCENT AUTO 12 % (21-46); MONOCYTES ABSOLUTE AUTO 0.69 K/mm3 (0.16-1.47); MONOCYTES PERCENT AUTO 4 % (4-13); Mean Corpuscular HGB 29.5 pg (26.0-34.0); Mean Corpuscular HGB Conc 33.3 g/dL (31.5-36.5); Mean Corpuscular Volume 89 fL (80-100); Mean Platelet Volume 10.5 fL (9.1-12.4); NEUTROPHILS ABSOLUTE AUTO 14.55 K/mm3 (1.96-9.15); NEUTROPHILS PERCENT AUTO 81 % (41-73); Platelet Count 255 K/mm3 (150-400); RDW Coefficient Variation 13.8 % (11.7-14.2); RDW Standard Deviation 44.9 fL (35.1-46.3); Red Blood Cell Count 5.32 M/mm3 (3.80-5.20)
[2020-12-14 16:45] LABS: Alanine Aminotransfer (ALT/SGP 41 U/L (12-78); Albumin, Blood 3.8 g/dL (3.4-5.0); Albumin/Globulin Ratio 1.1 (0.8-1.8); Alk Phos 98 U/L (50-136); Anion Gap 6 mmol/L (6-16); Aspartate Aminotrans (AST/SGOT 13 U/L (12-37); Bilirubin, Total 0.7 mg/dL (0.1-1.0); Blood Urea Nitrogen 7 mg/dL (8-24); Bun/Creatinine Ratio 9.4 (12.0-20.0); CO2, Blood 25 mmol/L (21-32); Calcium, Blood 9.4 mg/dL (8.5-10.1); Chloride, Blood 109 mmol/L (98-108); Creatinine, Blood 0.74 mg/dL (0.40-1.00); Globulin, Blood 3.5 g/dL (2.2-4.0); Glomerular Filtration Rate >60 (60-); Glucose, Blood 117 mg/dL (70-99); Potassium, Blood 3.7 mmol/L (3.5-5.5); Sodium, Blood 140 mmol/L (136-145); Total Protein, Blood 7.3 g/dL (6.4-8.2)
[2020-12-14] MEDS ORDERED: Prozac20 MG PO (17:30)
[2020-12-14] MEDS ORDERED: HYDCHL25 PO (17:31)
[2020-12-14] MEDS ORDERED: IPRAT-ALBUT 0.5-3 ML NEB (17:31)
[2020-12-14] MEDS ORDERED: SYMBICORT 160-4.6 GM INH (17:32)
[2020-12-14] MEDS ORDERED: TUDORZA PRESS400 MC1 INH (17:33)
[2020-12-14] MEDS ORDERED: ALBU90OI INH (17:33)
[2020-12-14] MEDS ORDERED: ZANAFLEX4 M4 PO (17:33)
[2020-12-14] MEDS ORDERED: COMBIVENT RESPIM4 G1 INH (17:35)
[2020-12-14] MEDS ORDERED: PRED20 PO (17:36)
[2020-12-14] MEDS ORDERED: BUSP10 PO (17:36)
[2020-12-14] MEDS ORDERED: Cetirizine HCl10 MG PO (17:36)
[2020-12-14] MEDS ORDERED: OMEP20ER PO (17:37)
[2020-12-14] MEDS ORDERED: FURO20 PO (17:37)
[2020-12-14] MEDS ORDERED: ALENDRONATE SOD PO (17:45)
[2020-12-14] MEDS ORDERED: XANAX0.25 MG PO (17:45)
[2020-12-14] MEDS ORDERED: FERSU300 PO (17:45)
[2020-12-14] MEDS ORDERED: ACET325 PO (17:45)
[2020-12-14] MEDS ORDERED: BENZ100A PO (17:45)
[2020-12-14] MEDS ORDERED: CYCL10 PO (17:45)
[2020-12-14] MEDS ORDERED: MONT10T PO (17:45)
[2020-12-14] MEDS ORDERED: VITAMIN D5000 UNIT PO (17:45)
[2020-12-14] MEDS ORDERED: MAGNESIUM OXID500 MG PO (17:45)
[2020-12-14] MEDS ORDERED: LIDOCAINE1 EAC1 TOP (17:45)
[2020-12-14] MEDS ORDERED: CALCIUM CARBON500 M1 PO (17:46)
[2020-12-14] MEDS ORDERED: OXAYDO5 M1 PO (17:46)
--- NOTE | 2020-12-14 22:29 | NUR ---
ADMIT NOTE HANDOFF RECEIVED FROM ER NURSE GERTRUDE. PT TRANSPORTED TO ROOM VIA WHEELCHAIR. PERSONAL POSSESSIONS WITH PT. PT ORIENTED TO UNIT. CALL BUTTON WITHIN REACH
--- NOTE | 2020-12-14 23:46 | NUR ---
PT MEDICATED PER EMAR. RT AT BEDSIDE FOR BREATHING TREATMENT Q4. PT WHEEZING AND REPORTS FEELING UNCOMFORTABLE. INSPIRATORY AND EXPIRATORY WHEEZING. PT ON 3 LITERS NC AT ALL TIMES AT HOME. ON 3 L NC HERE. PT NORMALLY HAS BREATHING TREATMENTS Q4H AT HOME. REQUESTING PAIN MEDICATION. GIVEN BY NURSE PER EMAR.
--- NOTE | 2020-12-15 04:18 | NUR ---
SHIFT SUMMARY ADMITTED FROM ER THIS SHIFT FOR ASTHMA/COPD EXACERBATION. FULL CODE. COVID NEGATIVE. TELEMETRY: NSR @ 93 BPM. WBC COUNT ELEVATED @ 18. RESPIRATORY TREATMENTS ARE PRN. ON 3 LPM O2 @ BASELINE. FLEXERIL ORDERED THIS SHIFT. TREATED FOR PAIN ONE TIME SO FAR THIS SHIFT
[2020-12-15 04:31] LABS: BASOPHILS ABSOLUTE AUTO 0.03 K/mm3 (0.00-0.23); BASOPHILS PERCENT AUTO 0 % (0-2); EOSINOPHILS PERCENT AUTO 0 % (0-6); Hematocrit 47.2 % (33.0-51.0); Hemoglobin 15.6 g/dL (11.5-16.0); IMMATURE GRAN ABSOLUTE AUTO 0.31 K/mm3 (0.00-0.10); IMMATURE GRAN PERCENT AUTO 2 % (0-1); LYMPHOCYTES ABSOLUTE AUTO 0.76 K/mm3 (0.84-5.20); LYMPHOCYTES PERCENT AUTO 6 % (21-46); MONOCYTES ABSOLUTE AUTO 0.13 K/mm3 (0.16-1.47); MONOCYTES PERCENT AUTO 1 % (4-13); Mean Corpuscular HGB 29.5 pg (26.0-34.0); Mean Corpuscular HGB Conc 33.1 g/dL (31.5-36.5); Mean Corpuscular Volume 89 fL (80-100); Mean Platelet Volume 10.5 fL (9.1-12.4); NEUTROPHILS ABSOLUTE AUTO 12.59 K/mm3 (1.96-9.15); NEUTROPHILS PERCENT AUTO 91 % (41-73); Platelet Count 235 K/mm3 (150-400); RDW Coefficient Variation 13.7 % (11.7-14.2); RDW Standard Deviation 44.2 fL (35.1-46.3); Red Blood Cell Count 5.28 M/mm3 (3.80-5.20); White Blood Cell Count 13.82 K/mm3 (4.00-11.30)
[2020-12-15 04:50] LABS: Alanine Aminotransfer (ALT/SGP 44 U/L (12-78); Albumin, Blood 3.6 g/dL (3.4-5.0); Albumin/Globulin Ratio 1.1 (0.8-1.8); Alk Phos 94 U/L (50-136); Anion Gap 6 mmol/L (6-16); Aspartate Aminotrans (AST/SGOT 13 U/L (12-37); Bilirubin, Total 0.7 mg/dL (0.1-1.0); Blood Urea Nitrogen 13 mg/dL (8-24); Bun/Creatinine Ratio 15.3 (12.0-20.0); CO2, Blood 25 mmol/L (21-32); Chloride, Blood 108 mmol/L (98-108); Creatinine, Blood 0.85 mg/dL (0.40-1.00); Globulin, Blood 3.3 g/dL (2.2-4.0); Glomerular Filtration Rate >60 (60-); Glucose, Blood 144 mg/dL (70-99); Potassium, Blood 4.5 mmol/L (3.5-5.5); Sodium, Blood 139 mmol/L (136-145); Total Protein, Blood 6.9 g/dL (6.4-8.2)
--- NOTE | 2020-12-15 05:38 | NUR ---
COMPOSITOR APPRENTICE/CTA I HAVE READ COMPOSITOR APPRENTICE HOWIE'S DOCUMENTATION ON THIS PT AND I CONCUR. TORITO.CLC
--- NOTE | 2020-12-15 17:10 | NUR ---
SHIFT SUMMARY NO ACUTE CHANGES T/O SHIFT, A&Ox4, CALM AND COOPERATIVE c CARE. INDEPENDENT IN THE ROOM. PT REMAINS ON 3 L/MIN O2, THIS IS BASELINE FOR PT. TREATED FOR PAIN LOCATED NEAR THE LEFT CHEST WHERE PT HAS HAD PREVIOUS LUNG SURGERY. PT STATED PRESCRIBED TX IS EFFECTIVE AND DECREASING THE PAIN. SHE STATES TO BE FEELING A LITTLE BETTER. POSSIBLE DC TOMORROW OR THURSDAY PER JEFF. PT HAS HAD A GOOD APPETITE, DRINKING FLUIDS AND EATING ICE CHIPS. PT IS CURRENTLY CHATING WITH HER SO ON THE PHONE AND SITTING UP IN BED. CALL LIGHT IS WITHIN REACH, CALLS APPROPRIATELY.
--- NOTE | 2020-12-16 04:03 | NUR ---
SHIFT SUMMARY ADMITTED FOR ASTHMA/COPD EXACERBATION. FULL CODE. COVID NEGATIVE. PLAN TO SWITCH TO ORAL STEROIDS AND POSSIBLE DC HOME TODAY. PT ON 3 LPM NC @ BASELINE. NOTED IMPROVEMENT IN WHEEZING. PAIN MEDICATION ADMINISTERED X2. INCENTIVE SPIROMETER USED BY PT Q2. NO NEW CONCERNS THIS SHIFT.
--- NOTE | 2020-12-16 04:36 | NUR ---
SURGICAL SUPPLY ASSISTANT/CTA I HAVE READ THIS SURGICAL SUPPLY ASSISTANT'S DOCUMENTATION, AND AFTER PERFORMING MY OWN ASSESSMENT - I CONCUR WITH HER DOCUMENTATION. TORITO.CLC
[2020-12-16] MEDS ORDERED: Prednisone10 MG PO (13:06)
[2020-12-16] MEDS ORDERED: Percocet 5-3251 EACH PO (13:08)
--- NOTE | 2020-12-16 14:38 | NUR ---
PT TO DISCHARGE HOME. IV REMOVED . PT TO FOLLOW UP WITH PCP
[2021-01-14] MEDS ORDERED: CEPH500 PO (12:45)
[2021-01-14] MEDS ORDERED: Prednisone10 MG PO ×2 (12:47→12:48)
[2021-01-14] MEDS ORDERED: Prednisone10 M1 PO (12:48)
[2021-01-14] MEDS ORDERED: HYDR1TAB94 PO (14:08)
== END 2020-12-16 14:10 | disposition home or self-care (01) | DRG 189 ==
LOC: ER 15:53 → MEDS 15:55 → ER 21:10 → MEDS 21:18 → ER 21:18 → MEDS 21:21
PROVIDERS: Physician Assistant; ADMIT Internal Medicine
DX: J96.21 Acute and chronic respiratory failure with hypoxia (principal); J45.901 Unspecified asthma with (acute) exacerbation; Z68.41 Body mass index [BMI] 40.0-44.9, adult; M81.0 Age-related osteoporosis without current pathological fracture; M79.7 Fibromyalgia; I10 Essential (primary) hypertension; F41.1 Generalized anxiety disorder; D50.9 Iron deficiency anemia, unspecified; J44.9 Chronic obstructive pulmonary disease, unspecified; E66.9 Obesity, unspecified; Z79.52 Long term (current) use of systemic steroids
CPT/HCPCS: 36415; 71045; 80053; 83880; 85025; 93005; 93010; 94640; 94644; 94760; 96365; 96366; 96375; 96376; 99285-25; A9270; G0378; J1885; J2930; J3010; J3475

== ENCOUNTER 2021-02-01 20:26 | Observation (INO) | payer OTHER ==
[~2021-02-01] VITALS: Ht 177.8 cm; Wt 128.4 kg
[~2021-02-01 20:26] MED LIST changes: +ALBU90OI INH; +ALENDRONATE SOD PO; +BENZ100A PO; +CALCIUM CARBON500 M1 PO; +CEPH500 PO; +CYCL10 PO; +FERSU300 PO; +FURO20 PO; +IPRAT-ALBUT 0.5-3 ML NEB; +LIDOCAINE1 EAC1 TOP; +MONT10T PO; +OMEP20ER PO; +OXAYDO5 M1 PO; +Prednisone10 M1 PO; +Prozac20 MG PO; +SYMBICORT 160-4.6 GM INH; +TUDORZA PRESS400 MC1 INH; +VITAMIN D5000 UNIT PO; +ZANAFLEX4 M4 PO
[2021-02-01 20:54] LABS: Base Excess Venous -0.6 mmol/L; Bicarbonate Venous 24.4 mmol/L (24.0-30.0); PCO2 Venous 35.5 mmHg (38-42); PO2 Venous 136 mmHg (38-42); pH Blood Venous 7.43 (7.34-7.37)
[2021-02-01 20:57] LABS: BASOPHILS ABSOLUTE AUTO 0.08 K/mm3 (0.00-0.23); BASOPHILS PERCENT AUTO 1 % (0-2); EOSINOPHILS ABSOLUTE AUTO 0.01 K/mm3 (0.00-0.68); EOSINOPHILS PERCENT AUTO 0 % (0-6); Hematocrit 48.4 % (33.0-51.0); Hemoglobin 15.6 g/dL (11.5-16.0); IMMATURE GRAN ABSOLUTE AUTO 0.43 K/mm3 (0.00-0.10); IMMATURE GRAN PERCENT AUTO 3 % (0-1); LYMPHOCYTES ABSOLUTE AUTO 0.98 K/mm3 (0.84-5.20); LYMPHOCYTES PERCENT AUTO 7 % (21-46); MONOCYTES ABSOLUTE AUTO 0.26 K/mm3 (0.16-1.47); MONOCYTES PERCENT AUTO 2 % (4-13); Mean Corpuscular HGB 29.5 pg (26.0-34.0); Mean Corpuscular HGB Conc 32.2 g/dL (31.5-36.5); Mean Corpuscular Volume 92 fL (80-100); Mean Platelet Volume 10.5 fL (9.1-12.4); NEUTROPHILS ABSOLUTE AUTO 12.21 K/mm3 (1.96-9.15); NEUTROPHILS PERCENT AUTO 87 % (41-73); Platelet Count 296 K/mm3 (150-400); RDW Coefficient Variation 13.4 % (11.7-14.2); RDW Standard Deviation 45.4 fL (35.1-46.3); Red Blood Cell Count 5.28 M/mm3 (3.80-5.20); White Blood Cell Count 13.97 K/mm3 (4.00-11.30)
[2021-02-01 21:09] LABS: Alanine Aminotransfer (ALT/SGP 46 U/L (12-78); Albumin, Blood 4.3 g/dL (3.4-5.0); Albumin/Globulin Ratio 1.2 (0.8-1.8); Alk Phos 85 U/L (50-136); Anion Gap 7 mmol/L (6-16); Aspartate Aminotrans (AST/SGOT 14 U/L (12-37); Bilirubin, Total 0.6 mg/dL (0.1-1.0); Blood Urea Nitrogen 10 mg/dL (8-24); Bun/Creatinine Ratio 11.5 (12.0-20.0); CO2, Blood 25 mmol/L (21-32); Calcium, Blood 9.5 mg/dL (8.5-10.1); Chloride, Blood 106 mmol/L (98-108); Creatinine, Blood 0.87 mg/dL (0.40-1.00); Globulin, Blood 3.5 g/dL (2.2-4.0); Glomerular Filtration Rate >60 (60-); Glucose, Blood 146 mg/dL (70-99); Potassium, Blood 4.3 mmol/L (3.5-5.5); Sodium, Blood 138 mmol/L (136-145); Total Protein, Blood 7.8 g/dL (6.4-8.2)
[2021-02-02 04:47] LABS: BASOPHILS ABSOLUTE AUTO 0.06 K/mm3 (0.00-0.23); BASOPHILS PERCENT AUTO 1 % (0-2); EOSINOPHILS ABSOLUTE AUTO 0.06 K/mm3 (0.00-0.68); EOSINOPHILS PERCENT AUTO 1 % (0-6); Hematocrit 43.9 % (33.0-51.0); IMMATURE GRAN PERCENT AUTO 3 % (0-1); LYMPHOCYTES ABSOLUTE AUTO 2.26 K/mm3 (0.84-5.20); LYMPHOCYTES PERCENT AUTO 18 % (21-46); MONOCYTES ABSOLUTE AUTO 0.78 K/mm3 (0.16-1.47); MONOCYTES PERCENT AUTO 6 % (4-13); Mean Corpuscular HGB 29.5 pg (26.0-34.0); Mean Corpuscular HGB Conc 31.9 g/dL (31.5-36.5); Mean Corpuscular Volume 92 fL (80-100); Mean Platelet Volume 9.9 fL (9.1-12.4); NEUTROPHILS ABSOLUTE AUTO 8.75 K/mm3 (1.96-9.15); NEUTROPHILS PERCENT AUTO 71 % (41-73); Platelet Count 245 K/mm3 (150-400); RDW Coefficient Variation 13.5 % (11.7-14.2); RDW Standard Deviation 45.6 fL (35.1-46.3); Red Blood Cell Count 4.75 M/mm3 (3.80-5.20); White Blood Cell Count 12.31 K/mm3 (4.00-11.30)
[2021-02-02 05:12] LABS: Alanine Aminotransfer (ALT/SGP 39 U/L (12-78); Albumin, Blood 3.7 g/dL (3.4-5.0); Albumin/Globulin Ratio 1.2 (0.8-1.8); Alk Phos 80 U/L (50-136); Anion Gap 7 mmol/L (6-16); Aspartate Aminotrans (AST/SGOT 5 U/L (12-37); Bilirubin, Total 0.4 mg/dL (0.1-1.0); Blood Urea Nitrogen 11 mg/dL (8-24); Bun/Creatinine Ratio 12.2 (12.0-20.0); CO2, Blood 28 mmol/L (21-32); Calcium, Blood 8.7 mg/dL (8.5-10.1); Chloride, Blood 104 mmol/L (98-108); Creatinine, Blood 0.91 mg/dL (0.40-1.00); Glomerular Filtration Rate >60 (60-); Glucose, Blood 121 mg/dL (70-99); Potassium, Blood 3.4 mmol/L (3.5-5.5); Sodium, Blood 139 mmol/L (136-145); Total Protein, Blood 6.7 g/dL (6.4-8.2)
--- NOTE | 2021-02-02 05:51 | NUR ---
PT ADMIT TO ROOM 310 THIS SHIFT, WHEEZES T/O. A/O, IND, WEARS 3L O2 AT HOME BASELINE.
--- NOTE | 2021-02-02 17:54 | NUR ---
SHIFT SUMMARY- PT IS A/O, PLESANT AND COOPERATIVE. SHE IS EATING AND DRINKING WELL SHE IS RECIEVING PRN PAIN MEDICATION. HER LUNG SOUNDS ARE COURSE THROUGHTOUT. SHE IS WORKING WITH RT AND RECIEVING PRN BREATHING TREATMENTS. HER BED IS IN THE LOW POSITION AND CALL LIGHT IS WITHIN REACH.
--- NOTE | 2021-02-03 05:05 | NUR ---
PT IS A/O, IND IN ROOM, TELE MONITOR IN SR, 3L O2 AT BASELINE; REGULAR BREATHING TX. WHEEZES T/O. MEDICATED THIS SHIFT FOR LEFT RIB PAIN PER EMAR.
[2021-02-03] MEDS ORDERED: HYDR1TAB94 PO (14:07)
--- NOTE | 2021-02-03 15:10 | NUR ---
PT DISCHARGED FROM THE UNIT. IV REMOVED. DISCHARGE INSTRUCTIONS REVIEWED. HARD COPY OF SCRIPT GIVEN. PT AMBULATED FROM THE UNIT PER HER REQUEST.
== END 2021-02-03 15:15 | disposition home or self-care (01) ==
LOC: ER 20:26 → MEDS 20:27 → ER 02-02 02:43 → MEDS 02-02 03:39
PROVIDERS: Physician Assistant; ADMIT Internal Medicine
DX: J45.51 Severe persistent asthma with (acute) exacerbation (principal); J96.11 Chronic respiratory failure with hypoxia; I10 Essential (primary) hypertension; K21.9 Gastro-esophageal reflux disease without esophagitis; J44.9 Chronic obstructive pulmonary disease, unspecified; M79.7 Fibromyalgia; E66.9 Obesity, unspecified; F32.9 Major depressive disorder, single episode, unspecified; F41.1 Generalized anxiety disorder; M81.0 Age-related osteoporosis without current pathological fracture; R07.89 Other chest pain; Z68.41 Body mass index [BMI] 40.0-44.9, adult; Z99.81 Dependence on supplemental oxygen
CPT/HCPCS: 36415; 71046; 80053; 82803; 83735; 85025; 94640; 94644; 94760; 96365; 96366; 96375; 96376; 99285-25; A9270; G0378; J2930; J3010; J3475

== ENCOUNTER 2021-02-26 09:59 | Observation (INO) | payer OTHER ==
[~2021-02-26] VITALS: Ht 177.8 cm; Wt 129.3 kg
[2021-02-26] MEDS ORDERED: FLUT1DIS2 INH (10:32)
[2021-02-26] MEDS ORDERED: Prinivil10 MG PO (10:35)
[2021-02-26 10:52] LABS: BASOPHILS ABSOLUTE AUTO 0.11 K/mm3 (0.00-0.23); BASOPHILS PERCENT AUTO 1 % (0-2); EOSINOPHILS ABSOLUTE AUTO 0.47 K/mm3 (0.00-0.68); EOSINOPHILS PERCENT AUTO 4 % (0-6); Hematocrit 46.2 % (33.0-51.0); Hemoglobin 15.2 g/dL (11.5-16.0); IMMATURE GRAN ABSOLUTE AUTO 0.56 K/mm3 (0.00-0.10); IMMATURE GRAN PERCENT AUTO 5 % (0-1); LYMPHOCYTES ABSOLUTE AUTO 2.93 K/mm3 (0.84-5.20); LYMPHOCYTES PERCENT AUTO 26 % (21-46); MONOCYTES ABSOLUTE AUTO 0.91 K/mm3 (0.16-1.47); MONOCYTES PERCENT AUTO 8 % (4-13); Mean Corpuscular HGB 29.6 pg (26.0-34.0); Mean Corpuscular HGB Conc 32.9 g/dL (31.5-36.5); Mean Corpuscular Volume 90 fL (80-100); Mean Platelet Volume 10.1 fL (9.1-12.4); NEUTROPHILS ABSOLUTE AUTO 6.24 K/mm3 (1.96-9.15); NEUTROPHILS PERCENT AUTO 56 % (41-73); Platelet Count 228 K/mm3 (150-400); RDW Coefficient Variation 13.4 % (11.7-14.2); RDW Standard Deviation 44.8 fL (35.1-46.3); Red Blood Cell Count 5.14 M/mm3 (3.80-5.20); White Blood Cell Count 11.22 K/mm3 (4.00-11.30)
[2021-02-26 11:16] LABS: Alanine Aminotransfer (ALT/SGP 34 U/L (12-78); Albumin, Blood 3.8 g/dL (3.4-5.0); Albumin/Globulin Ratio 1.2 (0.8-1.8); Alk Phos 89 U/L (50-136); Anion Gap 7 mmol/L (6-16); Aspartate Aminotrans (AST/SGOT 14 U/L (12-37); Bilirubin, Total 0.4 mg/dL (0.1-1.0); Blood Urea Nitrogen 9 mg/dL (8-24); Bun/Creatinine Ratio 11.3 (12.0-20.0); CO2, Blood 26 mmol/L (21-32); Calcium, Blood 8.8 mg/dL (8.5-10.1); Chloride, Blood 107 mmol/L (98-108); Creatinine, Blood 0.79 mg/dL (0.40-1.00); Globulin, Blood 3.1 g/dL (2.2-4.0); Glomerular Filtration Rate >60 (60-); Glucose, Blood 87 mg/dL (70-99); Potassium, Blood 3.6 mmol/L (3.5-5.5); Sodium, Blood 140 mmol/L (136-145); Total Protein, Blood 6.9 g/dL (6.4-8.2); Troponin I <0.015 ng/mL (0.000-0.040)
--- NOTE | 2021-02-26 19:48 | NUR ---
PT ADMITTED TO ROOM 313 FROM ED VIA W/C TX AT 1624- A/O X4, RESP EVEN UNLABORED. INSP/EXP WHEEZE. O2 3L SAT 92%. STATES PAIN MIDSTERNAL 04/23. DR CARREON AT BEDSIDE AND AWARE. GOING TO EVAL CHART AND LABS ETC. TO DETERMINE WHAT TO DO WITH PAIN MED ETC.
--- NOTE | 2021-02-27 05:55 | NUR ---
SUMMARY: PT A/OX4, INDEPENDENT IN ROOM AND CALLS APPROPRIATELY TO SPECIFY NEEDS. SHE REMAINS ON 2L O2 VIA NC W/PERSISTANT INS AND EXP WHEEZES UPON AUSCULTATION. RESPS E/U AT REST BUT PT IS SOB W/EXERTION. BREATHING TX'S AND SOLUMEDROL RECIEVED PER EMAR. SHE CONT'S TO REPORT MIDSTERNAL CHEST PAIN BUT TROPS REMAIN (-) T/O NOCTE AND PT HAS HAD NO ADDITIONAL ASSOCIATED CARDIAC SYMPTOMS. PAIN IS DESCRIBED AND CONSTANT PRESSURE, WORSE W/MOBILITY OF L.ARM ABOVE SHOULDER HEIGHT. SHE ALSO STATES IT'S "UNLIKE ANY OTHER PLEURITIC PAIN" SHE'S HAD BEFORE. FENTANYL RX'D AND 5OMG IV RECIEVED X2 DOSES FOR TOLERABLE IMPROVEMENT. SHE ADMITS TO ABILITY TO SLEEP FOLLOWING MEDS. NO ACUTE CHANGES. VSS/AFEBRILE. PT NSR ON TELEMETRY AT 70'S-90'S BPM. WCTM AND REPORT TO DAY RN.
[2021-02-27] MEDS ORDERED: DICLOFENAC SOD100 GM TP (14:58)
[2021-02-27] MEDS ORDERED: ROXICODONE5 MG PO (15:00)
--- NOTE | 2021-02-27 15:48 | NUR ---
DISCHARGE NOTE PT IS AOX4. PT IV REMOVED BY THIS RN PER DOCUMENTATION. DC INSTRUCTIONS REVIEWED WITH PT AND WHO VERBALIZED AN UNDERSTANDING. PT DRESSED SELF IN HOME CLOTHING. PT MEDICATION SCRIPTS SENT HOME WITH PT AND COPY IN CHART. PT BELONGINGS GATHERED FROM ROOM. PT USED HOME O2 ON DC. PT WALKED OFF UNIT WITH AND STAFF ASSISTANT. PT REFUSED WHEELCHAIR ON DC. PT HAS LEFT THE BUILDING WITH BELONGINGS IN PLACE.
== END 2021-02-27 15:40 | disposition home or self-care (01) ==
LOC: ER 09:59 → MEDS 10:00 → ER 15:21 → MEDS 15:21
PROVIDERS: Emergency Medicine; ADMIT Internal Medicine
DX: J45.51 Severe persistent asthma with (acute) exacerbation (principal); M84.48XA Pathological fracture, other site, initial encounter for fracture; I10 Essential (primary) hypertension; K21.9 Gastro-esophageal reflux disease without esophagitis; E66.01 Morbid (severe) obesity due to excess calories; F41.1 Generalized anxiety disorder; D50.9 Iron deficiency anemia, unspecified; M79.7 Fibromyalgia; Z79.899 Other long term (current) drug therapy; Z88.1 Allergy status to other antibiotic agents; Z88.5 Allergy status to narcotic agent; M81.0 Age-related osteoporosis without current pathological fracture
CPT/HCPCS: 36415; 71260; 80053; 84484; 85025; 93005; 93010; 94640; 94644; 94760; 96365; 96366; 96375; 99285-25; A9270; J1885; J2270; J2405; J2930; J3010; J3475; Q9967

== ENCOUNTER 2021-06-19 03:54 | Inpatient (IN) | payer OTHER ==
[~2021-06-19] VITALS: Ht 177.8 cm; Wt 131.4 kg
[~2021-06-19 03:54] MED LIST changes: +DICLOFENAC SOD100 GM TP; +FLUT1DIS2 INH; +Prinivil10 MG PO; +ROXICODONE5 MG PO
[2021-06-19 04:29] LABS: BASOPHILS ABSOLUTE AUTO 0.13 K/mm3 (0.00-0.23); BASOPHILS PERCENT AUTO 1 % (0-2); EOSINOPHILS ABSOLUTE AUTO 0.13 K/mm3 (0.00-0.68); EOSINOPHILS PERCENT AUTO 1 % (0-6); Hematocrit 43.9 % (33.0-51.0); Hemoglobin 14.6 g/dL (11.5-16.0); IMMATURE GRAN ABSOLUTE AUTO 0.73 K/mm3 (0.00-0.10); IMMATURE GRAN PERCENT AUTO 4 % (0-1); LYMPHOCYTES PERCENT AUTO 6 % (21-46); MONOCYTES ABSOLUTE AUTO 0.65 K/mm3 (0.16-1.47); MONOCYTES PERCENT AUTO 3 % (4-13); Mean Corpuscular HGB 29.1 pg (26.0-34.0); Mean Corpuscular HGB Conc 33.3 g/dL (31.5-36.5); Mean Corpuscular Volume 88 fL (80-100); Mean Platelet Volume 10.1 fL (9.1-12.4); NEUTROPHILS ABSOLUTE AUTO 16.62 K/mm3 (1.96-9.15); NEUTROPHILS PERCENT AUTO 86 % (41-73); Platelet Count 230 K/mm3 (150-400); RDW Coefficient Variation 13.3 % (11.7-14.2); RDW Standard Deviation 42.6 fL (35.1-46.3); Red Blood Cell Count 5.01 M/mm3 (3.80-5.20); White Blood Cell Count 19.36 K/mm3 (4.00-11.30)
[2021-06-19] MEDS ORDERED: HYDCHL25 PO (04:47)
[2021-06-19 04:48] LABS: Alanine Aminotransfer (ALT/SGP 38 U/L (12-78); Albumin, Blood 3.7 g/dL (3.4-5.0); Albumin/Globulin Ratio 1.1 (0.8-1.8); Alk Phos 78 U/L (50-136); Anion Gap 8 mmol/L (6-16); Aspartate Aminotrans (AST/SGOT 18 U/L (12-37); Bilirubin, Total 0.6 mg/dL (0.1-1.0); Blood Urea Nitrogen 12 mg/dL (8-24); Bun/Creatinine Ratio 14.2 (12.0-20.0); CO2, Blood 22 mmol/L (21-32); Calcium, Blood 9.1 mg/dL (8.5-10.1); Chloride, Blood 108 mmol/L (98-108); Creatinine, Blood 0.84 mg/dL (0.40-1.00); Globulin, Blood 3.3 g/dL (2.2-4.0); Glomerular Filtration Rate >60 (60-); Glucose, Blood 107 mg/dL (70-99); Potassium, Blood 3.8 mmol/L (3.5-5.5); Sodium, Blood 138 mmol/L (136-145)
[2021-06-19 06:42] LABS: SARS-Cov-2 (COVID-19) PCR, MMC NEGATIVE (NEGATIVE)
--- NOTE | 2021-06-19 08:06 | NUR ---
RECIEVED REPORT FROM WHITNEY MONTANO RN, @ 0803. PATIENT TO TRANSFER TO ROOM 339.
[2021-06-19 09:13] LABS: Source, Urine Clean Catch
[2021-06-19 09:16] LABS: Appearance, Urine Clear (Clear); Bilirubin, Urine Neg (Neg); Blood, Urine Neg (Neg); Color, Urine Yellow (P-Yellow); Glucose Qualitative, Urine Neg (Neg); Ketones, Urine 2+ (Neg); Leukocyte Esterase, Urine Neg (Neg); Nitrite, Urine Neg (Neg); Protein, Urine Neg (Neg); Specific Gravity, Urine 1.015 (1.003-1.022); Urobilinogen, Urine NORM (Normal)
--- NOTE | 2021-06-19 09:25 | NUR ---
PATIENT ARRIVED TO ROOM AT 0818 AND TRANSFERED INDEPENDENTLY TO HOSPITAL BED. STRONG, STEADY GAIT NOTED. PATIENT IS ON 3L O2 NC WHICH IS HER BASELINE AT HOME. VITALS STABLE. C/O PAIN TO BACK/RIB AREA R/T COUGHING; MD NOTIFIED AND STATES SHE WILL ORDER SOME PAIN MEDICATION. SKIN C/D/I. ADMISSION ASSESSMENT, H&P AND MED REC COMPLETED. PATIENT IN ROOM EATING BREAKFAST AT THIS TIME. CALL LIGHT IN REACH. REPORT GIVEN TO MARK ULRICH WHO HAS TAKEN OVER CARE OF PATIENT.
--- NOTE | 2021-06-19 18:09 | NUR ---
END OF SHIFT SUMMARY: PATIENT ARRIVED TO UNIT VIA STRETCHER. PATIENT IS ALERT AND ORIENTED. PATIENT REPORTED THAT HER BREATHING IS FEELING MUCH BETTER THAN WHEN SHE PRESENTED TO THE ED. PATIENT SITTING IN BED WITH CALM, EVEN RESPIRATIONS. PATIENT ON HOME DOSE OF 3L O2 VIA NC. PATIENT DENIES RESPIRATORY DISTRESS. PATIENT IS REPORTING SHARP RIGHT RIB PAIN. PATIENT REPORTS THAT SHE HAS "CRACKED" HER RIBS BEFORE FROM COUGHING AND TURNING A CORNER IN HER CAR. SHE REPORTS A HISTORY OF OSTEOPOROSIS. PATIENT HAS AN EXCELLENT APPETITE. PATIENT DENIES NAUSEA OR GASTRIC UPSET. PATIENT INDEPENDENT IN THE ROOM.
--- NOTE | 2021-06-19 19:49 | NUR ---
PAIN CONTROL: LATE ENTRY: 1800 PATIENT REPORTS THAT THE CURRENT PAIN MEDICATION HAS NOT BEEN ENOUGH TO COVER HER PAIN. REPORTED TO DR. MENDEZ. NEW ORDERS WERE ENTERED. RECEIVED A PHONE CALL FROM PHARMACY QUESTIONING THE ORDERS. PHARMACY REPORTED THAT THEY WOULD SPEAK WITH DR. MENDEZ. ORIGINAL ORDERS ENTERED. PATIENT IS INCREASINGLY UPSET ABOUT HER PAIN. PATIENT ABLE TO TAKE A NAP THIS AFTERNOON, BUT REPORTED THAT THE CURRENT PAIN MEDICATION WAS "NOT CUTTING IT". PATIENT TEARFUL AT TIMES WHEN SHE DISCUSSES HER PAIN AND PAIN THAT SHE EXPERIENCES AT HOME. UPDATED MAILROOM COORDINATOR RN.
--- NOTE | 2021-06-20 02:57 | NUR ---
06/19/21 2200 PT LYING IN BED, AWAKE, WATCHING TV. NO APPARENT SIGNS OF DISTRESS. CALL LIGHT IS IN REACH.
--- NOTE | 2021-06-20 02:58 | NUR ---
0000 PT LYING IN BED, EYES CLOSED, APPEARS TO BE RESTING. BREATHING IS EVEN, UNLABORED. PT SNORING. NO APPARENT SIGNS OF DISTRESS. CALL LIGHT IS IN REACH.
--- NOTE | 2021-06-20 02:58 | NUR ---
PT REQUESTED AND RECIVED PAIN MEDS, PT REPORTS PAIN IS A 7 1/2 BUT SHE WAS SOUNDLY SLEEPING AND SNORING PREVIOUSLY AND HER FACE SCALE LOOKS MORE LIKE A 3/10. WILL EVAL FOR EFFECT. NO OTHER APPARENT SIGNS OF DISTRESS. CALL LIGHT IS IN REACH. PT ASKED IF WE COULD CALL THE DR TO GET ANOTHER DOSE OF FENTYL IV, HOWEVER, I EXPLAINED TO HER THAT BASED ON HOW SOUNDLY SHE WAS SLEEPING AND HOW SHE APPEARED TO BE NOT BE IN EXTREME PAIN THAT THEY WOULD WANT HER TO TRY HER PERCOCET FIRST. PT SEEMED OK WITH THIS.
--- NOTE | 2021-06-20 04:52 | NUR ---
0400 PT LYING IN BED, EYES CLOSED, APPEARS TO BE RESTING. SNORING. NO APPARENT SIGNS OF DISTRESS. CALL LIGHT IS IN REACH.
--- NOTE | 2021-06-20 04:52 | NUR ---
PT IS AAO X 4, ON 3L NC O2 AT 94%. SOB THAT INCREASES WITH EXERTION. NAUSEA BUT DID NOT WANT MEDS FOR IT. BACK AND R RIBS PAIN, GOT FENTANYL X 1 AND PERCOCET 2 X 1.
[2021-06-20 05:23] LABS: BASOPHILS ABSOLUTE AUTO 0.04 K/mm3 (0.00-0.23); BASOPHILS PERCENT AUTO 0 % (0-2); EOSINOPHILS PERCENT AUTO 0 % (0-6); Hematocrit 48.5 % (33.0-51.0); Hemoglobin 15.8 g/dL (11.5-16.0); IMMATURE GRAN ABSOLUTE AUTO 0.56 K/mm3 (0.00-0.10); IMMATURE GRAN PERCENT AUTO 3 % (0-1); LYMPHOCYTES ABSOLUTE AUTO 0.95 K/mm3 (0.84-5.20); LYMPHOCYTES PERCENT AUTO 5 % (21-46); MONOCYTES ABSOLUTE AUTO 1.05 K/mm3 (0.16-1.47); MONOCYTES PERCENT AUTO 6 % (4-13); Mean Corpuscular HGB 29.5 pg (26.0-34.0); Mean Corpuscular HGB Conc 32.6 g/dL (31.5-36.5); Mean Corpuscular Volume 91 fL (80-100); Mean Platelet Volume 10.5 fL (9.1-12.4); NEUTROPHILS ABSOLUTE AUTO 16.24 K/mm3 (1.96-9.15); NEUTROPHILS PERCENT AUTO 86 % (41-73); Platelet Count 263 K/mm3 (150-400); RDW Coefficient Variation 13.2 % (11.7-14.2); RDW Standard Deviation 43.4 fL (35.1-46.3); Red Blood Cell Count 5.36 M/mm3 (3.80-5.20); White Blood Cell Count 18.84 K/mm3 (4.00-11.30)
--- NOTE | 2021-06-20 06:20 | NUR ---
PT REQUESTED AND RECIEVED PAIN MEDS, WILL EVAL FOR EFFECT. NO OTHER APPARENT SIGNS OF DISTRESS. CALL LIGHT IS IN REACH. NO OTHER CHANGES THIS SHIFT.
[2021-06-20] MEDS ORDERED: Percocet 5-3251 EACH PO (12:28)
--- NOTE | 2021-06-20 12:55 | NUR ---
PT AO X 4,PT C/O RIGHT SIDED RIB PAIN MEDICATED WITH PERCOCET,REASSESS PAIN RESOLVED PER PT.PT DENIES SOB,N/V.PT ON 2L,THAT'S HER HOME BASELINE.PT IS INDEPENDENT,PT IS DISCHARGE HOME WITH ALL BELONGINGS.PT IS DRESS UP WAITING TO HIDE STRETCHER HAND BY FAMILY MEMBER.
== END 2021-06-20 13:38 | disposition home or self-care (01) | DRG 871 ==
LOC: ER 03:54 → MEDS 06:38
PROVIDERS: Family Medicine; Student in an Organized Health Care Education/Training Program; ADMIT Family Medicine
DX: A41.9 Sepsis, unspecified organism (principal); J18.9 Pneumonia, unspecified organism; J45.51 Severe persistent asthma with (acute) exacerbation; J96.11 Chronic respiratory failure with hypoxia; Z68.41 Body mass index [BMI] 40.0-44.9, adult; Z20.822 Contact with and (suspected) exposure to COVID-19; E66.9 Obesity, unspecified; K21.9 Gastro-esophageal reflux disease without esophagitis; I10 Essential (primary) hypertension; M94.0 Chondrocostal junction syndrome [Tietze]; M81.0 Age-related osteoporosis without current pathological fracture; F41.1 Generalized anxiety disorder; M79.7 Fibromyalgia; Z88.0 Allergy status to penicillin; Z88.5 Allergy status to narcotic agent; Z88.6 Allergy status to analgesic agent; Z99.81 Dependence on supplemental oxygen; Z90.49 Acquired absence of other specified parts of digestive tract; Z90.89 Acquired absence of other organs; Z98.890 Other specified postprocedural states; Z79.51 Long term (current) use of inhaled steroids; Z79.52 Long term (current) use of systemic steroids; Z79.899 Other long term (current) drug therapy
CPT/HCPCS: 36415; 71045; 80053; 81003; 83605; 84145; 85025; 87040; 94640; 94644; 94760; 94762; 96365; 96375; 99285-25; A9270; J0696; J1885; J2270; J2930; J3010; J3475; J7050; U0004

== ENCOUNTER 2021-08-04 11:33 | Inpatient (IN) | payer OTHER ==
[~2021-08-04] VITALS: Ht 177.8 cm; Wt 129.3 kg
[~2021-08-04 11:33] MED LIST changes: -Prozac20 MG PO; +Prozac40 MG PO
[2021-08-04 12:05] LABS: BASOPHILS ABSOLUTE AUTO 0.09 K/mm3 (0.00-0.23); BASOPHILS PERCENT AUTO 1 % (0-2); EOSINOPHILS ABSOLUTE AUTO 0.47 K/mm3 (0.00-0.68); EOSINOPHILS PERCENT AUTO 3 % (0-6); Hematocrit 45.4 % (33.0-51.0); Hemoglobin 14.9 g/dL (11.5-16.0); IMMATURE GRAN ABSOLUTE AUTO 0.27 K/mm3 (0.00-0.10); IMMATURE GRAN PERCENT AUTO 2 % (0-1); LYMPHOCYTES ABSOLUTE AUTO 3.08 K/mm3 (0.84-5.20); LYMPHOCYTES PERCENT AUTO 22 % (21-46); MONOCYTES ABSOLUTE AUTO 0.85 K/mm3 (0.16-1.47); MONOCYTES PERCENT AUTO 6 % (4-13); Mean Corpuscular HGB 29.6 pg (26.0-34.0); Mean Corpuscular HGB Conc 32.8 g/dL (31.5-36.5); Mean Corpuscular Volume 90 fL (80-100); Mean Platelet Volume 10.6 fL (9.1-12.4); NEUTROPHILS PERCENT AUTO 66 % (41-73); Platelet Count 216 K/mm3 (150-400); RDW Coefficient Variation 14.3 % (11.7-14.2); RDW Standard Deviation 46.7 fL (35.1-46.3); Red Blood Cell Count 5.04 M/mm3 (3.80-5.20); White Blood Cell Count 14.06 K/mm3 (4.00-11.30)
[2021-08-04 12:26] LABS: Alanine Aminotransfer (ALT/SGP 67 U/L (12-78); Albumin, Blood 3.9 g/dL (3.4-5.0); Albumin/Globulin Ratio 1.3 (0.8-1.8); Alk Phos 69 U/L (50-136); Anion Gap 8 mmol/L (6-16); Aspartate Aminotrans (AST/SGOT 26 U/L (12-37); Bilirubin, Total 0.6 mg/dL (0.1-1.0); Blood Urea Nitrogen 8 mg/dL (8-24); Bun/Creatinine Ratio 9.9 (12.0-20.0); CO2, Blood 26 mmol/L (21-32); Calcium, Blood 9.2 mg/dL (8.5-10.1); Chloride, Blood 109 mmol/L (98-108); Creatinine, Blood 0.81 mg/dL (0.40-1.00); Glomerular Filtration Rate >60 (60-); Glucose, Blood 99 mg/dL (70-99); Potassium, Blood 3.4 mmol/L (3.5-5.5); Sodium, Blood 143 mmol/L (136-145); Total Protein, Blood 6.9 g/dL (6.4-8.2); Troponin I <0.015 ng/mL (0.000-0.040)
[2021-08-04 13:11] LABS: Influenza A, PCR NEGATIVE (NEGATIVE); Influenza B, PCR NEGATIVE (NEGATIVE); SARS-Cov-2 (COVID-19) PCR, MMC NEGATIVE (NEGATIVE)
[2021-08-04 13:12] LABS: Resp Syncytial Virus, PCR POSITIVE (NEGATIVE)
[2021-08-04] MEDS ORDERED: PRED20 PO (19:39)
--- NOTE | 2021-08-05 03:38 | NUR ---
SHIFT SUMMARY PT NEW ADMISSION AT CHANGE OF SHIFT. ADMISSION IS COMPLETE. NO ACUTE CHANGES TO REPORT THIS SHIFT. PT HAS RESTED MOST OF THE NIGHT. PT REMAINS ON HER BASELINE O2 OF 3L, AND IS MAINTAINING SATS WNL. IV SOLUMEDROL PER ORDERS. PT REPORTS BREATHING HAS IMPROVED, BUT IS STILL HAVING SOME SOB WITH EXERTION. NEB TREATMENTS PER RT. PT MEDICATED FOR R SIDED PAIN PRN PER EMAR ORDERS. PT INDEPENDENT IN THE ROOM AND MAKES NEEDS KNOWN. BED IN LOWEST POSITION, CALL LIGHT WITHIN REACH.
[2021-08-05 05:22] LABS: BASOPHILS ABSOLUTE AUTO 0.02 K/mm3 (0.00-0.23); BASOPHILS PERCENT AUTO 0 % (0-2); EOSINOPHILS PERCENT AUTO 0 % (0-6); Hematocrit 46.1 % (33.0-51.0); IMMATURE GRAN ABSOLUTE AUTO 0.32 K/mm3 (0.00-0.10); IMMATURE GRAN PERCENT AUTO 3 % (0-1); LYMPHOCYTES ABSOLUTE AUTO 0.92 K/mm3 (0.84-5.20); LYMPHOCYTES PERCENT AUTO 7 % (21-46); MONOCYTES ABSOLUTE AUTO 0.26 K/mm3 (0.16-1.47); MONOCYTES PERCENT AUTO 2 % (4-13); Mean Corpuscular HGB 29.5 pg (26.0-34.0); Mean Corpuscular HGB Conc 32.5 g/dL (31.5-36.5); Mean Corpuscular Volume 91 fL (80-100); Mean Platelet Volume 10.7 fL (9.1-12.4); NEUTROPHILS ABSOLUTE AUTO 11.25 K/mm3 (1.96-9.15); NEUTROPHILS PERCENT AUTO 88 % (41-73); Platelet Count 215 K/mm3 (150-400); RDW Coefficient Variation 14.2 % (11.7-14.2); RDW Standard Deviation 47.6 fL (35.1-46.3); Red Blood Cell Count 5.09 M/mm3 (3.80-5.20); White Blood Cell Count 12.77 K/mm3 (4.00-11.30)
[2021-08-05 05:49] LABS: Anion Gap 6 mmol/L (6-16); Blood Urea Nitrogen 11 mg/dL (8-24); CO2, Blood 27 mmol/L (21-32); Calcium, Blood 9.2 mg/dL (8.5-10.1); Chloride, Blood 105 mmol/L (98-108); Creatinine, Blood 0.85 mg/dL (0.40-1.00); Glomerular Filtration Rate >60 (60-); Glucose, Blood 131 mg/dL (70-99); Potassium, Blood 4.7 mmol/L (3.5-5.5); Sodium, Blood 138 mmol/L (136-145)
[2021-08-05] MEDS ORDERED: ALENDRONATE SOD35 MG PO (12:05)
[2021-08-05] MEDS ORDERED: Tessalon200 MG PO (12:05)
[2021-08-05] MEDS ORDERED: CYCL10 PO (12:16)
[2021-08-05] MEDS ORDERED: DICLOFENAC SOD100 GM TOP (12:17)
[2021-08-05] MEDS ORDERED: LASIX20 M2 PO (12:17)
[2021-08-05] MEDS ORDERED: Prinivil10 MG PO (12:18)
[2021-08-05] MEDS ORDERED: Percocet 5-3251 EACH PO (12:19)
[2021-08-05] MEDS ORDERED: MAGNESIUM OXID500 MG PO (12:19)
--- NOTE | 2021-08-05 13:22 | NUR ---
DISCHARGE NOTE PT IS AOX4.THIS RN REMOVED PT'S IV PER DOCUMENTATION. DC INSTRUCTIONS AND MEDICATIONS REVIEWED WITH PT WHO VERBALIZED UNDERSTANDING. MEDICATIONS FAXED TO [facility] AND HARD SCRIPT SENT WITH PT ON DC. PT DRESSED SELF IN HOME CLOTHING. PT GATHERED BELONGINGS FROM ROOM. PT REFUSED WHEELCHAIR FOR DC AND WALKED OFF UNIT AND LEFT FACILITY WITH BELONGINGS PRESENT ALONGSIDE FAMILY MEMBER.
== END 2021-08-05 13:25 | disposition home or self-care (01) | DRG 202 ==
LOC: ER 11:33 → ERHOLD 15:39 → MEDS 18:36 → ENPENDDIS 08-05 11:38 → MEDS 08-05 13:25
PROVIDERS: Emergency Medicine; ADMIT Internal Medicine
PROC: 5A09357 Assistance with Respiratory Ventilation, Less than 24 Consecutive Hours, Continuous Positive Airway Pressure (ICD-10-PCS; principal; 2021-08-04)
DX: J45.51 Severe persistent asthma with (acute) exacerbation (principal); J96.11 Chronic respiratory failure with hypoxia; Z68.41 Body mass index [BMI] 40.0-44.9, adult; Z20.822 Contact with and (suspected) exposure to COVID-19; J20.5 Acute bronchitis due to respiratory syncytial virus; I10 Essential (primary) hypertension; F41.1 Generalized anxiety disorder; E66.9 Obesity, unspecified; M19.90 Unspecified osteoarthritis, unspecified site; M79.7 Fibromyalgia; K21.9 Gastro-esophageal reflux disease without esophagitis; Z28.21 Immunization not carried out because of patient refusal; Z99.81 Dependence on supplemental oxygen; Z88.0 Allergy status to penicillin; Z88.5 Allergy status to narcotic agent; Z79.899 Other long term (current) drug therapy; Z79.52 Long term (current) use of systemic steroids; Z90.89 Acquired absence of other organs; Z90.49 Acquired absence of other specified parts of digestive tract; Z98.890 Other specified postprocedural states
CPT/HCPCS: 0241U; 36415; 71045; 80048; 80053; 83605; 84484; 85025; 93005; 93010; 94640; 94644; 94645; 94660; 96365; 96366; 96375; 96376; 99285-25; A9270; J1885; J2270; J2405; J2930; J3475

== ENCOUNTER 2021-10-02 08:33 | Observation (INO) | payer OTHER ==
[~2021-10-02] VITALS: Ht 180.3 cm; Wt 129.3 kg
[~2021-10-02 08:33] MED LIST changes: +ALENDRONATE SOD35 MG PO; +DICLOFENAC SOD100 GM TOP; +LASIX20 M2 PO; +Tessalon200 MG PO
[2021-10-02 09:27] LABS: BASOPHILS PERCENT AUTO 1 % (0-2); EOSINOPHILS ABSOLUTE AUTO 0.48 K/mm3 (0.00-0.68); EOSINOPHILS PERCENT AUTO 3 % (0-6); Hematocrit 48.7 % (33.0-51.0); Hemoglobin 15.9 g/dL (11.5-16.0); IMMATURE GRAN ABSOLUTE AUTO 0.69 K/mm3 (0.00-0.10); IMMATURE GRAN PERCENT AUTO 4 % (0-1); LYMPHOCYTES ABSOLUTE AUTO 2.46 K/mm3 (0.84-5.20); LYMPHOCYTES PERCENT AUTO 14 % (21-46); MONOCYTES PERCENT AUTO 6 % (4-13); Mean Corpuscular HGB 29.9 pg (26.0-34.0); Mean Corpuscular HGB Conc 32.6 g/dL (31.5-36.5); Mean Corpuscular Volume 92 fL (80-100); Mean Platelet Volume 10.5 fL (9.1-12.4); NEUTROPHILS ABSOLUTE AUTO 13.22 K/mm3 (1.96-9.15); NEUTROPHILS PERCENT AUTO 74 % (41-73); Platelet Count 211 K/mm3 (150-400); RDW Coefficient Variation 13.5 % (11.7-14.2); RDW Standard Deviation 45.2 fL (35.1-46.3); Red Blood Cell Count 5.32 M/mm3 (3.80-5.20); White Blood Cell Count 17.95 K/mm3 (4.00-11.30)
[2021-10-02 09:48] LABS: Alanine Aminotransfer (ALT/SGP 48 U/L (12-78); Albumin, Blood 4.1 g/dL (3.4-5.0); Albumin/Globulin Ratio 1.3 (0.8-1.8); Alk Phos 71 U/L (50-136); Anion Gap 7 mmol/L (6-16); Aspartate Aminotrans (AST/SGOT 22 U/L (12-37); Bilirubin, Total 0.6 mg/dL (0.1-1.0); Blood Urea Nitrogen 12 mg/dL (8-24); Bun/Creatinine Ratio 15.7 (12.0-20.0); CO2, Blood 26 mmol/L (21-32); Calcium, Blood 9.4 mg/dL (8.5-10.1); Chloride, Blood 107 mmol/L (98-108); Creatinine, Blood 0.76 mg/dL (0.40-1.00); Globulin, Blood 3.2 g/dL (2.2-4.0); Glomerular Filtration Rate >60 (60-); Glucose, Blood 109 mg/dL (70-99); Potassium, Blood 4.1 mmol/L (3.5-5.5); Sodium, Blood 140 mmol/L (136-145); Total Protein, Blood 7.3 g/dL (6.4-8.2)
[2021-10-03 05:18] LABS: BASOPHILS ABSOLUTE AUTO 0.04 K/mm3 (0.00-0.23); BASOPHILS PERCENT AUTO 0 % (0-2); EOSINOPHILS PERCENT AUTO 0 % (0-6); Hematocrit 48.7 % (33.0-51.0); Hemoglobin 15.5 g/dL (11.5-16.0); IMMATURE GRAN ABSOLUTE AUTO 0.52 K/mm3 (0.00-0.10); IMMATURE GRAN PERCENT AUTO 3 % (0-1); LYMPHOCYTES ABSOLUTE AUTO 0.96 K/mm3 (0.84-5.20); LYMPHOCYTES PERCENT AUTO 6 % (21-46); MONOCYTES PERCENT AUTO 2 % (4-13); Mean Corpuscular HGB 29.4 pg (26.0-34.0); Mean Corpuscular HGB Conc 31.8 g/dL (31.5-36.5); Mean Corpuscular Volume 92 fL (80-100); Mean Platelet Volume 10.2 fL (9.1-12.4); NEUTROPHILS ABSOLUTE AUTO 14.77 K/mm3 (1.96-9.15); NEUTROPHILS PERCENT AUTO 89 % (41-73); Platelet Count 219 K/mm3 (150-400); RDW Coefficient Variation 13.1 % (11.7-14.2); RDW Standard Deviation 43.9 fL (35.1-46.3); Red Blood Cell Count 5.27 M/mm3 (3.80-5.20); White Blood Cell Count 16.59 K/mm3 (4.00-11.30)
[2021-10-03 05:42] LABS: Anion Gap 6 mmol/L (6-16); Blood Urea Nitrogen 13 mg/dL (8-24); Bun/Creatinine Ratio 16.8 (12.0-20.0); CO2, Blood 26 mmol/L (21-32); Calcium, Blood 8.9 mg/dL (8.5-10.1); Chloride, Blood 106 mmol/L (98-108); Creatinine, Blood 0.78 mg/dL (0.40-1.00); Glomerular Filtration Rate >60 (60-); Glucose, Blood 146 mg/dL (70-99); Potassium, Blood 4.9 mmol/L (3.5-5.5); Sodium, Blood 138 mmol/L (136-145)
--- NOTE | 2021-10-03 06:12 | NUR ---
Rn summary: Patient is a delightful patient. Pt breath sounds remain wheezy/ both inspiratory and expiratory. Minimal cough. Pt remains on 4 liters O2 Pt has been medicated x3 for left rib pain 7/ with minimal relief. She has been able to rest on and off.
[2021-10-03] MEDS ORDERED: BENZ100A PO (13:21)
[2021-10-03] MEDS ORDERED: OMEP20ER PO (13:24)
--- NOTE | 2021-10-03 13:45 | NUR ---
DISCHARGE PT A&OX4. PT PROVIDED W/ VERBAL AND WRITTEN DISCHARGE INSTRUCTION. PT VERBALIZED UNDERSTANDING. PT PROVIDED W/ HARD COPY SCRIPT AND WAS PLACED IN DISCHARGE FOLDER. PT ABLE TO AMBULATE W/ [facility] TO [facility]. SPOUSE AWAITING @ [facility] FOR TRANSPORT.
== END 2021-10-03 13:53 | disposition home or self-care (01) ==
LOC: ER 08:33 → MEDS 08:34
PROVIDERS: Emergency Medicine; Nurse Practitioner Acute Care; ADMIT Internal Medicine
DX: J44.9 Chronic obstructive pulmonary disease, unspecified (principal); J45.901 Unspecified asthma with (acute) exacerbation; K21.9 Gastro-esophageal reflux disease without esophagitis; I10 Essential (primary) hypertension; D50.9 Iron deficiency anemia, unspecified; E66.01 Morbid (severe) obesity due to excess calories; M79.7 Fibromyalgia; R07.9 Chest pain, unspecified; R00.0 Tachycardia, unspecified; F41.1 Generalized anxiety disorder; Z88.1 Allergy status to other antibiotic agents; Z88.5 Allergy status to narcotic agent
CPT/HCPCS: 36415; 71045; 71100; 80048; 80053; 85025; 93005; 93010; 94640; 94644; 96365; 96375; 96376; 99285-25; A9270; G0378; J1200; J1885; J2270; J2405; J2930; J3475; J7030

== ENCOUNTER 2021-11-28 10:01 | Inpatient (IN) | payer OTHER ==
[~2021-11-28] VITALS: Ht 177.8 cm; Wt 133.1 kg
[2021-11-28 10:39] LABS: BASOPHILS ABSOLUTE AUTO 0.12 K/mm3 (0.00-0.23); BASOPHILS PERCENT AUTO 1 % (0-2); EOSINOPHILS ABSOLUTE AUTO 0.35 K/mm3 (0.00-0.68); EOSINOPHILS PERCENT AUTO 3 % (0-6); Hematocrit 44.2 % (33.0-51.0); Hemoglobin 14.6 g/dL (11.5-16.0); IMMATURE GRAN ABSOLUTE AUTO 0.78 K/mm3 (0.00-0.10); IMMATURE GRAN PERCENT AUTO 6 % (0-1); LYMPHOCYTES ABSOLUTE AUTO 2.73 K/mm3 (0.84-5.20); LYMPHOCYTES PERCENT AUTO 20 % (21-46); MONOCYTES ABSOLUTE AUTO 1.04 K/mm3 (0.16-1.47); MONOCYTES PERCENT AUTO 8 % (4-13); Mean Corpuscular Volume 91 fL (80-100); Mean Platelet Volume 10.4 fL (9.1-12.4); NEUTROPHILS ABSOLUTE AUTO 8.67 K/mm3 (1.96-9.15); NEUTROPHILS PERCENT AUTO 63 % (41-73); Platelet Count 213 K/mm3 (150-400); RDW Coefficient Variation 13.9 % (11.7-14.2); RDW Standard Deviation 46.5 fL (35.1-46.3); Red Blood Cell Count 4.87 M/mm3 (3.80-5.20); White Blood Cell Count 13.69 K/mm3 (4.00-11.30)
[2021-11-28 11:00] LABS: Alanine Aminotransfer (ALT/SGP 32 U/L (12-78); Albumin, Blood 3.8 g/dL (3.4-5.0); Albumin/Globulin Ratio 1.3 (0.8-1.8); Alk Phos 68 U/L (50-136); Anion Gap 9 mmol/L (6-16); Aspartate Aminotrans (AST/SGOT 13 U/L (12-37); Bilirubin, Total 0.6 mg/dL (0.1-1.0); Blood Urea Nitrogen 11 mg/dL (8-24); Bun/Creatinine Ratio 13.8 (12.0-20.0); CO2, Blood 24 mmol/L (21-32); Calcium, Blood 9.1 mg/dL (8.5-10.1); Chloride, Blood 108 mmol/L (98-108); Globulin, Blood 2.9 g/dL (2.2-4.0); Glomerular Filtration Rate >60 (60-); Glucose, Blood 102 mg/dL (70-99); Potassium, Blood 3.6 mmol/L (3.5-5.5); Sodium, Blood 141 mmol/L (136-145); Total Protein, Blood 6.7 g/dL (6.4-8.2)
--- NOTE | 2021-11-28 18:49 | NUR ---
ACCEPTED PT FROM ED THIS AFTERNOON, PLACED IN BED IN ROOM, ORIENTED TO ROOM. VS TAKEN, STABLE. ON 3 L O2, ON TELE, NSR. C/O PAIN IN L RIB CAGE FROM CRACKED RIBS. PROVIDED PAIN MEDS. PLACED CALL TO MD REQUESTING MORE AGGRESSIVE PAIN TREATMENT. RECEIVED ORDER FOR DILAUDID AND 1ST DOSE WAS GIVEN ALONG WITH THE DOSE OF OXYCODONE AND TYLENOL GIVEN APPROX 15 MINUTES PRIOR. BILAT EXP & INSP WHEEZES THROUGHOUT LUNG KIM. IS ABLE TO CARRY ON A CONVERSATION WITHOUT BEING SOB OR INCREASING HER WOB. SHE DOES C/O DIFFICULTY TAKING IN A DEEP BREATH D/T THE RIB PAIN. AT END OF SHIFT SHE STATES HER PAIN IS WELL CONTROLLED AND CAN TAKE A DEEP BREATH.
[2021-11-29 04:57] LABS: Hematocrit 47.1 % (33.0-51.0); Hemoglobin 15.1 g/dL (11.5-16.0); Mean Corpuscular HGB 29.8 pg (26.0-34.0); Mean Corpuscular HGB Conc 32.1 g/dL (31.5-36.5); Mean Corpuscular Volume 93 fL (80-100); Mean Platelet Volume 10.3 fL (9.1-12.4); Platelet Count 214 K/mm3 (150-400); RDW Coefficient Variation 13.5 % (11.7-14.2); RDW Standard Deviation 45.4 fL (35.1-46.3); Red Blood Cell Count 5.07 M/mm3 (3.80-5.20); White Blood Cell Count 17.97 K/mm3 (4.00-11.30)
--- NOTE | 2021-11-29 05:30 | NUR ---
Patient is alert and oriented x4, independent. Complains of chest/rib pain. Patient has short of breath during exertion. Wheezing heard during auscultation on bilateral lower lungs. PRN pain medication given to help relieve pressure from chest wall area. Patient now sleeping. No signs of distress. Call light within reach.
[2021-11-29 05:33] LABS: Anion Gap 5 mmol/L (6-16); Blood Urea Nitrogen 12 mg/dL (8-24); Bun/Creatinine Ratio 15.6 (12.0-20.0); CO2, Blood 27 mmol/L (21-32); Chloride, Blood 105 mmol/L (98-108); Creatinine, Blood 0.77 mg/dL (0.40-1.00); Glomerular Filtration Rate >60 (60-); Glucose, Blood 153 mg/dL (70-99); Potassium, Blood 5.2 mmol/L (3.5-5.5); Sodium, Blood 137 mmol/L (136-145)
--- NOTE | 2021-11-29 17:20 | NUR ---
SUMMARY PT SITTING UP IN BED WATCHING TV, PT HAS BEEN INDEPENDENT IN THE ROOM, PLEASANT AND COOPERATIVE WITH CARE, MED PER EMAR FOR PAIN, REMAINS ON 3L, BASELINE, HOPEFUL TO DC HOME TOMORROW, VSS, WILL CONT TO MONITOR
--- NOTE | 2021-11-30 05:23 | NUR ---
SHIFT SUMMARY PATIENT ALERT AND ORIENTED. MEDICATED PER EMAR FOR PAIN. HAD NO COMPLAINTS OF SHORTNESS OF BREATH. NO ACUTE ISSUES NOTED OVERNIGHT. CALL LIGHT WITHIN REACH. REPORT GIVEN TO ONCOMING RN.
[2021-11-30 05:26] LABS: BASOPHILS ABSOLUTE AUTO 0.07 K/mm3 (0.00-0.23); BASOPHILS PERCENT AUTO 0 % (0-2); EOSINOPHILS PERCENT AUTO 0 % (0-6); Hematocrit 45.3 % (33.0-51.0); Hemoglobin 14.3 g/dL (11.5-16.0); IMMATURE GRAN ABSOLUTE AUTO 0.95 K/mm3 (0.00-0.10); IMMATURE GRAN PERCENT AUTO 4 % (0-1); LYMPHOCYTES ABSOLUTE AUTO 0.95 K/mm3 (0.84-5.20); LYMPHOCYTES PERCENT AUTO 4 % (21-46); MONOCYTES ABSOLUTE AUTO 1.16 K/mm3 (0.16-1.47); MONOCYTES PERCENT AUTO 5 % (4-13); Mean Corpuscular HGB 29.5 pg (26.0-34.0); Mean Corpuscular HGB Conc 31.6 g/dL (31.5-36.5); Mean Corpuscular Volume 94 fL (80-100); Mean Platelet Volume 10.2 fL (9.1-12.4); NEUTROPHILS ABSOLUTE AUTO 19.83 K/mm3 (1.96-9.15); NEUTROPHILS PERCENT AUTO 86 % (41-73); Platelet Count 235 K/mm3 (150-400); RDW Coefficient Variation 13.5 % (11.7-14.2); RDW Standard Deviation 46.2 fL (35.1-46.3); Red Blood Cell Count 4.84 M/mm3 (3.80-5.20); White Blood Cell Count 22.96 K/mm3 (4.00-11.30)
[2021-11-30 06:07] LABS: Anion Gap 7 mmol/L (6-16); Blood Urea Nitrogen 19 mg/dL (8-24); Bun/Creatinine Ratio 22.9 (12.0-20.0); CO2, Blood 28 mmol/L (21-32); Chloride, Blood 104 mmol/L (98-108); Creatinine, Blood 0.83 mg/dL (0.40-1.00); Glomerular Filtration Rate >60 (60-); Glucose, Blood 151 mg/dL (70-99); Sodium, Blood 139 mmol/L (136-145)
--- NOTE | 2021-11-30 16:04 | NUR ---
PATIENT DISCHARGED HOME. PATIENT WAS SENT TO HER PHARMACY WITH A DILUDID SCRIPT. PATIENT'S PREDNISONE ORDERS WERE ALSO CHANGED TO INCREASE THE QUANTITY FOR THE PATIENT. DR. SARMIENTO CAME DOWN TO THE UNIT TO VERIFY COMPLETION OF SCRIPT AND MEDICATION RECONSILIATION. IV IN LEFT FOREARM REMOVED. MED REC REVIEWED AND COMPLETED WITH PATIENT PRIOR TO DISCHARGE. NO QUESTIONS OR CONCERNS. PATIENT LEFT IN WHEELCHAIR WITH PARTNER AND CHILD.
== END 2021-11-30 15:58 | disposition home or self-care (01) | DRG 189 ==
LOC: ER 10:01 → PCU 14:59 → MEDS 15:00
PROVIDERS: Family Medicine; Physician Assistant; ADMIT Internal Medicine
PROC: 5A09357 Assistance with Respiratory Ventilation, Less than 24 Consecutive Hours, Continuous Positive Airway Pressure (ICD-10-PCS; principal; 2021-11-28)
DX: J96.21 Acute and chronic respiratory failure with hypoxia (principal); J45.51 Severe persistent asthma with (acute) exacerbation; Z68.41 Body mass index [BMI] 40.0-44.9, adult; J44.1 Chronic obstructive pulmonary disease with (acute) exacerbation; Z28.21 Immunization not carried out because of patient refusal; E66.01 Morbid (severe) obesity due to excess calories; M79.7 Fibromyalgia; F32.A Depression, unspecified; F41.1 Generalized anxiety disorder; M81.0 Age-related osteoporosis without current pathological fracture; D50.9 Iron deficiency anemia, unspecified; T38.0X5A Adverse effect of glucocorticoids and synthetic analogues, initial encounter; K21.9 Gastro-esophageal reflux disease without esophagitis; Z99.81 Dependence on supplemental oxygen; Z87.442 Personal history of urinary calculi; Z90.49 Acquired absence of other specified parts of digestive tract; Z90.89 Acquired absence of other organs; Z98.890 Other specified postprocedural states; Z88.0 Allergy status to penicillin; Z88.5 Allergy status to narcotic agent; Z88.8 Allergy status to other drugs, medicaments and biological substances; Z79.51 Long term (current) use of inhaled steroids; Z79.52 Long term (current) use of systemic steroids; Z79.899 Other long term (current) drug therapy
CPT/HCPCS: 36415; 71045; 80048; 80053; 84132; 85025; 85027; 94640; 94644; 94660; 94760; 96365; 96375; 99285-25; A9270; J1170; J2270; J2405; J2930; J3475

== ENCOUNTER 2021-12-07 22:34 | Inpatient (IN) | payer OTHER ==
[~2021-12-07] VITALS: Ht 177.8 cm; Wt 135.7 kg
[2021-12-07 23:09] LABS: Hematocrit 43.7 % (33.0-51.0); Hemoglobin 14.5 g/dL (11.5-16.0); Mean Corpuscular HGB 30.6 pg (26.0-34.0); Mean Corpuscular HGB Conc 33.2 g/dL (31.5-36.5); Mean Corpuscular Volume 92 fL (80-100); Mean Platelet Volume 10.1 fL (9.1-12.4); Platelet Count 242 K/mm3 (150-400); RDW Coefficient Variation 13.5 % (11.7-14.2); RDW Standard Deviation 45.9 fL (35.1-46.3); Red Blood Cell Count 4.74 M/mm3 (3.80-5.20); White Blood Cell Count 20.19 K/mm3 (4.00-11.30)
[2021-12-07 23:27] LABS: Alanine Aminotransfer (ALT/SGP 48 U/L (12-78); Albumin, Blood 3.5 g/dL (3.4-5.0); Albumin/Globulin Ratio 1.1 (0.8-1.8); Alk Phos 66 U/L (50-136); Anion Gap 7 mmol/L (6-16); Aspartate Aminotrans (AST/SGOT 16 U/L (12-37); Bilirubin, Total 0.3 mg/dL (0.1-1.0); Blood Urea Nitrogen 11 mg/dL (8-24); Bun/Creatinine Ratio 16.4 (12.0-20.0); CO2, Blood 27 mmol/L (21-32); Calcium, Blood 9.1 mg/dL (8.5-10.1); Chloride, Blood 108 mmol/L (98-108); Creatinine, Blood 0.67 mg/dL (0.40-1.00); Globulin, Blood 3.1 g/dL (2.2-4.0); Glomerular Filtration Rate >60 (60-); Glucose, Blood 103 mg/dL (70-99); Sodium, Blood 142 mmol/L (136-145); Total Protein, Blood 6.6 g/dL (6.4-8.2)
[2021-12-07 23:35] LABS: BAND PERCENT MAN 1 % (0-8); BASOPHILS PERCENT MAN 0 % (0-2); EOSINOPHILS PERCENT MAN 0 % (0-6); LYMPHOCYTES PERCENT MAN 3 % (21-46); METAMYELOCYTE PERCENT MAN 2 % (0-0); MONOCYTES PERCENT MAN 5 % (4-13); MYELOCYTE PERCENT MAN 3 % (0-0); NEUTROPHILS ABSOLUTE MAN 17.56 K/mm3 (1.96-9.15); SEG NEUTROPHILS PERCENT MAN 86 % (41-73); TOTAL CELLS COUNTED 100
[2021-12-08 01:19] LABS: Base Excess Venous 5.4 mmol/L; Bicarbonate Venous 28.8 mmol/L (24.0-30.0); PCO2 Venous 40.6 mmHg (38-42); PO2 Venous 83.5 mmHg (38-42); pH Blood Venous 7.46 (7.34-7.37)
--- NOTE | 2021-12-08 06:53 | NUR ---
SHIFT SUMMARY ASSUMED CARE OF PT AT 0300. PT IS A/OX4. HEART SOUNDS REGULAR, LUNG SOUNDS HAVE INSPIRATORY AND EXPIRATORY WHEEZES. PT IS ON 3L NC. PT STATES SHE HAS PAIN IN HER CHEST DUE TO PREVIOUS PROCEDURE IN 2018. PT IS INDEPENDENT TO BSC. PT STATES SHE IS FEELING MUCH BETTER THAN EARLIER BUT FEELS LIKE SHE HAS AN INFECTION IN HER LUNGS.
--- NOTE | 2021-12-08 18:19 | NUR ---
CARE NOTE THIS NURSE GAVE VICKIE RN REPORT AT 1620. PT WAS ASSISTED WITH TRANSPORT BY [facility] CNA. PATIENT WAS ON BASELINE O2 THERAPY OF 3L VIA NC AND WAS STABLE UPON TRANSPORT.
[2021-12-09 04:37] LABS: Hematocrit 46.7 % (33.0-51.0); Hemoglobin 14.8 g/dL (11.5-16.0); Mean Corpuscular HGB Conc 31.7 g/dL (31.5-36.5); Mean Corpuscular Volume 95 fL (80-100); Mean Platelet Volume 10.1 fL (9.1-12.4); Platelet Count 235 K/mm3 (150-400); RDW Coefficient Variation 13.9 % (11.7-14.2); RDW Standard Deviation 47.9 fL (35.1-46.3); Red Blood Cell Count 4.94 M/mm3 (3.80-5.20); White Blood Cell Count 23.17 K/mm3 (4.00-11.30)
--- NOTE | 2021-12-09 04:40 | NUR ---
SHIFT SUMMARY PATIENT ALERT AND ORIENTED X4 ABLE TO VOICE NEEDS C/O PAIN TO HER LEFT LOWER BREAST 04/23 NON SWELLING NONTENDER TO TOUCH PRN ADM PER EMAR WITH RELIEF LUNGS SOUND WHEEZING ROGERIO CONT NEB TX ORDER .NO ACUTE CHANGE IN THIS SHIFT
[2021-12-09 05:37] LABS: BAND PERCENT MAN 7 % (0-8); BASOPHILS PERCENT MAN 0 % (0-2); EOSINOPHILS PERCENT MAN 0 % (0-6); LYMPHOCYTES ABSOLUTE MAN 0.69 K/mm3 (0.84-5.20); LYMPHOCYTES PERCENT MAN 3 % (21-46); MONOCYTES ABSOLUTE MAN 0.23 K/mm3 (0.16-1.47); MONOCYTES PERCENT MAN 1 % (4-13); MYELOCYTE ABSOLUTE MAN 0.69 K/mm3 (0.00-0.00); MYELOCYTE PERCENT MAN 3 % (0-0); NEUTROPHILS ABSOLUTE MAN 21.54 K/mm3 (1.96-9.15); SEG NEUTROPHILS PERCENT MAN 86 % (41-73); TOTAL CELLS COUNTED 100
[2021-12-09 05:38] LABS: Anion Gap 8 mmol/L (6-16); Blood Urea Nitrogen 16 mg/dL (8-24); Bun/Creatinine Ratio 21.1 (12.0-20.0); CO2, Blood 26 mmol/L (21-32); Calcium, Blood 8.9 mg/dL (8.5-10.1); Chloride, Blood 104 mmol/L (98-108); Creatinine, Blood 0.76 mg/dL (0.40-1.00); Glomerular Filtration Rate >60 (60-); Glucose, Blood 153 mg/dL (70-99); Potassium, Blood 4.8 mmol/L (3.5-5.5); Sodium, Blood 138 mmol/L (136-145)
--- NOTE | 2021-12-09 07:19 | NUR ---
called maintenance as pt room is extremely warm temperature reduced to 70 degrees will ctm
[2021-12-09] MEDS ORDERED: PRED20 PO (15:12)
--- NOTE | 2021-12-09 15:31 | NUR ---
REVIEWED PT DC MED LIST. NO PAIN MEDICATION INCLUDED ON THE LIST CALLED DR JOHNSON TO CLARIFY PT HAS BEEN RECIEVING IV PAIN MEDICATION T/O HER HOSPITALIZATION. AWAITNIG A CALL BACK OR NEW SCRIPT. PT DISCHARGE PAPERWORK IS IN ORDER OTHERWISE.
[2021-12-09] MEDS ORDERED: Percocet 5-3251 EACH PO (16:23)
[2021-12-09] MEDS ORDERED: LEVO750 PO (16:23)
--- NOTE | 2021-12-09 16:38 | NUR ---
DISCHARGE NOTE- PT WAS GIVEN VERBAL AND WRITTEN DISCHARGE INSTRUCTIONS AND PROVIDED WITH A HARD COPY SCRIPT FOR PAIN MEDICATION, PHOTOCOPY PLACED IN CHART. PT MEDICATED WITH A OT DOSE OF PO PRN PAIN MEDICATION. PT IS READY TO GO AND DECLINED A WC SHE WILL BE ESCORTED OUT BY A STAFF MEMBER, HER SPOUSE JUST ARRIVED TO PICK HER UP AT THIS TIME.
== END 2021-12-09 17:08 | disposition home or self-care (01) | DRG 871 ==
LOC: ER 22:34 → PCU 22:35 → MEDS 12-08 16:47 → ENPENDDIS 12-09 14:41 → MEDS 12-09 17:08
PROVIDERS: Emergency Medicine; Family Medicine; ADMIT Internal Medicine
DX: A41.9 Sepsis, unspecified organism (principal); J96.21 Acute and chronic respiratory failure with hypoxia; J18.9 Pneumonia, unspecified organism; Z68.41 Body mass index [BMI] 40.0-44.9, adult; J45.51 Severe persistent asthma with (acute) exacerbation; E87.2 Acidosis; Z28.21 Immunization not carried out because of patient refusal; R65.20 Severe sepsis without septic shock; I10 Essential (primary) hypertension; D50.9 Iron deficiency anemia, unspecified; F41.1 Generalized anxiety disorder; K21.9 Gastro-esophageal reflux disease without esophagitis; E66.01 Morbid (severe) obesity due to excess calories; M94.0 Chondrocostal junction syndrome [Tietze]; M81.0 Age-related osteoporosis without current pathological fracture; M79.7 Fibromyalgia; Z99.81 Dependence on supplemental oxygen; Z90.49 Acquired absence of other specified parts of digestive tract; Z90.89 Acquired absence of other organs; Z98.890 Other specified postprocedural states; Z88.0 Allergy status to penicillin; Z88.5 Allergy status to narcotic agent; Z88.8 Allergy status to other drugs, medicaments and biological substances; Z79.51 Long term (current) use of inhaled steroids; Z79.52 Long term (current) use of systemic steroids; Z79.899 Other long term (current) drug therapy
CPT/HCPCS: 36415; 71045; 80048; 80053; 82803; 83605; 83880; 84145; 84484; 84702; 85025; 93005; 93010; 94640; 94644; 94664; 94760; 94762; 96365; 96367; 96375; 96376; 99285-25; A9270; G0378; J0696; J1170; J1956; J2405; J2930; J3475

== ENCOUNTER → 2022-02-11 | Outpatient (CLI) | payer OTHER ==
[~2022-02-11] MED LIST changes: +IBUP800 PO
== END | disposition home or self-care (01) ==
LOC: LAB 15:38 → LAB SHORT 15:38
DX: N39.0 Urinary tract infection, site not specified (principal)
CPT/HCPCS: 87077; 87086; 87186

== ENCOUNTER 2022-02-25 07:12 | Day surgery (SDC) | payer OTHER ==
[~2022-02-25] VITALS: Ht 177.8 cm; Wt 127.3 kg
[~2022-02-25 07:12] MED LIST changes: +CLIN1TS TOP; +DUO-NEB NEB; +DUPIXENT300 MG/21 SC
[2022-02-25] MEDS ORDERED: Prednisone10 MG PO (07:54)
--- NOTE | 2022-02-25 07:58 | NUR ---
PT ADMITTED TO [facility]. AGREES WITH PLANNED SURGERY. LUNG SOUNDS CLEAR. STATES HER LUNGS FEEL AT HER BASE LINE.
--- NOTE | 2022-02-25 12:03 | NUR ---
RESUMED CARE OF PATIENT.
--- NOTE | 2022-02-25 12:07 | NUR ---
C/O 9/10 SHARP AND "STINGY" PAIN TO UMBILICUS. STATES A 5-6/10 WOULD BE A GOAL LEVEL OF PAIN. DENIES NAUSEA. TAKING SIPS OF SPRITE SODA AND CRACKERS. GAUZE DRSG WITH CLEAR OCCULSIVE DRSG TO SURGERY SITE. BREATHING 3L O2 N/C, BIOX 95%.
--- NOTE | 2022-02-25 12:23 | NUR ---
ICE TO ABDOMEN FOR COMFORT.
--- NOTE | 2022-02-25 12:37 | NUR ---
REPORT GIVEN TO BELLA GAINES RN.
--- NOTE | 2022-02-25 13:10 | NUR ---
Discharge instructions reviewed with patient. Patient verbalizes understanding. Copy given to patient to take home. Discharged via wheelchair to private car for ride home. DRG C/D/I. ICE PACK TAKEN HOME W/PT, RX WITH PT.
== END 2022-02-25 13:04 | disposition home or self-care (01) ==
LOC: ORSCMMR 07:12 → ORD 08:45 → ORSCMMR 13:04
PROVIDERS: Surgery
PROC: 0WUF0JZ Supplement Abdominal Wall with Synthetic Substitute, Open Approach (ICD-10-PCS; principal; 2022-02-25 08:45)
DX: K42.0 Umbilical hernia with obstruction, without gangrene (principal); I10 Essential (primary) hypertension; G47.33 Obstructive sleep apnea (adult) (pediatric); J45.909 Unspecified asthma, uncomplicated; K21.9 Gastro-esophageal reflux disease without esophagitis; Z79.899 Other long term (current) drug therapy; M79.7 Fibromyalgia; E66.01 Morbid (severe) obesity due to excess calories; Z68.41 Body mass index [BMI] 40.0-44.9, adult
CPT/HCPCS: A9270; C1781; J0690; J1100; J2250; J2405; J2704; J2765; J3010; J7120

== ENCOUNTER 2022-05-31 12:37 | Emergency (ER) | payer OTHER ==
[~2022-05-31] VITALS: Ht 177.8 cm; Wt 122.5 kg
[2022-05-31] MEDS ORDERED: Norco 10-325 T1 EACH PO (15:45)
== END 2022-05-31 15:57 | disposition home or self-care (01) ==
LOC: ER 12:37
DX: R09.1 Pleurisy (principal); J44.9 Chronic obstructive pulmonary disease, unspecified; Z99.81 Dependence on supplemental oxygen; Z79.899 Other long term (current) drug therapy; Z79.52 Long term (current) use of systemic steroids
CPT/HCPCS: 71046; J1885

== ENCOUNTER 2022-07-26 10:45 | Emergency (ER) | payer OTHER ==
[~2022-07-26] VITALS: Ht 177.8 cm; Wt 127.0 kg
[~2022-07-26 10:45] MED LIST changes: +Norco 10-325 T1 EACH PO
[2022-07-26 11:41] LABS: BASOPHILS ABSOLUTE AUTO 0.11 K/mm3 (0.00-0.23); BASOPHILS PERCENT AUTO 1 % (0-2); EOSINOPHILS ABSOLUTE AUTO 2.09 K/mm3 (0.00-0.68); EOSINOPHILS PERCENT AUTO 14 % (0-6); Hematocrit 45.2 % (33.0-51.0); Hemoglobin 15.7 g/dL (11.5-16.0); IMMATURE GRAN ABSOLUTE AUTO 0.14 K/mm3 (0.00-0.10); IMMATURE GRAN PERCENT AUTO 1 % (0-1); LYMPHOCYTES ABSOLUTE AUTO 1.77 K/mm3 (0.84-5.20); LYMPHOCYTES PERCENT AUTO 12 % (21-46); MONOCYTES ABSOLUTE AUTO 0.74 K/mm3 (0.16-1.47); MONOCYTES PERCENT AUTO 5 % (4-13); Mean Corpuscular HGB Conc 34.7 g/dL (31.5-36.5); Mean Corpuscular Volume 83 fL (80-100); Mean Platelet Volume 10.4 fL (9.1-12.4); NEUTROPHILS ABSOLUTE AUTO 10.18 K/mm3 (1.96-9.15); NEUTROPHILS PERCENT AUTO 68 % (41-73); Platelet Count 241 K/mm3 (150-400); RDW Coefficient Variation 13.2 % (11.7-14.2); RDW Standard Deviation 39.7 fL (35.1-46.3); Red Blood Cell Count 5.42 M/mm3 (3.80-5.20); White Blood Cell Count 15.03 K/mm3 (4.00-11.30)
[2022-07-26 12:20] LABS: Albumin, Blood 3.8 g/dL (3.4-5.0); Albumin/Globulin Ratio 1.1 (0.8-1.8); Bilirubin, Total 0.6 mg/dL (0.1-1.0); Bun/Creatinine Ratio 16.8 (12.0-20.0); Calcium, Blood 9.3 mg/dL (8.5-10.1); Creatinine, Blood 0.66 mg/dL (0.40-1.00); Globulin, Blood 3.5 g/dL (2.2-4.0); Potassium, Blood 3.8 mmol/L (3.5-5.5); Total Protein, Blood 7.3 g/dL (6.4-8.2)
[2022-07-26 12:53] LABS: Base Excess Venous -0.4 mmol/L; Bicarbonate Venous 24.2 mmol/L (24.0-30.0); PCO2 Venous 36.7 mmHg (38-42); pH Blood Venous 7.42 (7.34-7.37)
[2022-07-26 13:05] LABS: Influenza A, PCR NEGATIVE (NEGATIVE); Influenza B, PCR NEGATIVE (NEGATIVE); Resp Syncytial Virus, PCR NEGATIVE (NEGATIVE); SARS-Cov-2 (COVID-19) PCR, MMC NEGATIVE (NEGATIVE)
[2022-07-26] MEDS ORDERED: DOXY100 PO (16:32)
[2022-07-26] MEDS ORDERED: PRED20 PO (16:33)
== END 2022-07-26 16:50 | disposition home or self-care (01) ==
LOC: ER 10:45
PROVIDERS: Physician Assistant; Student in an Organized Health Care Education/Training Program
DX: J45.901 Unspecified asthma with (acute) exacerbation (principal); J06.9 Acute upper respiratory infection, unspecified; R09.1 Pleurisy; Z88.0 Allergy status to penicillin; Z88.5 Allergy status to narcotic agent; Z79.899 Other long term (current) drug therapy; J44.9 Chronic obstructive pulmonary disease, unspecified; Z99.81 Dependence on supplemental oxygen; Z20.822 Contact with and (suspected) exposure to COVID-19
CPT/HCPCS: 0241U; 36415; 71046; 80053; 82803; 84145; 84484; 85025; 85379; 93005; 93010; 94640; 94644; 94664; A9270; J1885; J2930; J3475

== ENCOUNTER 2022-09-11 19:14 | Emergency (ER) | payer OTHER ==
[~2022-09-11] VITALS: Ht 177.8 cm; Wt 128.8 kg
[~2022-09-11 19:14] MED LIST changes: -Bactrim Ds Tab1 EACH PO
[2022-09-11 20:16] LABS: Source, Urine Clean Catch
[2022-09-11 20:31] LABS: Appearance, Urine Hazy (Clear); Blood, Urine Neg (Neg); Glucose Qualitative, Urine Neg (Neg); Ketones, Urine Neg (Neg); Leukocyte Esterase, Urine Neg (Neg); Nitrite, Urine Pos (Neg); Protein, Urine 2+ (Neg); Urobilinogen, Urine NORM (Normal)
[2022-09-11 20:53] LABS: Bilirubin, Urine 2+ (Neg); Color, Urine Amber (P-Yellow)
[2022-09-11 20:57] LABS: Bacteria Many /hpf; Hyaline Casts 0-2 /lpf (0-2); Squamous Epithelial Cells Many /hpf (Few); Transitional Epithelial Cells Rare /hpf (0-Rare)
[2022-09-11 21:20] LABS: LYMPHOCYTES ABSOLUTE AUTO 2.41 K/mm3 (0.84-5.20); Mean Corpuscular Volume 84 fL (80-100)
[2022-09-11 21:25] LABS: BASOPHILS PERCENT AUTO 1 % (0-2); EOSINOPHILS ABSOLUTE AUTO 2.13 K/mm3 (0.00-0.68); EOSINOPHILS PERCENT AUTO 17 % (0-6); Hematocrit 44.9 % (33.0-51.0); Hemoglobin 15.8 g/dL (11.5-16.0); IMMATURE GRAN ABSOLUTE AUTO 0.07 K/mm3 (0.00-0.10); IMMATURE GRAN PERCENT AUTO 1 % (0-1); LYMPHOCYTES PERCENT AUTO 19 % (21-46); MONOCYTES ABSOLUTE AUTO 0.76 K/mm3 (0.16-1.47); MONOCYTES PERCENT AUTO 6 % (4-13); Mean Corpuscular HGB 29.4 pg (26.0-34.0); Mean Corpuscular HGB Conc 35.2 g/dL (31.5-36.5); Mean Platelet Volume 10.5 fL (9.1-12.4); NEUTROPHILS ABSOLUTE AUTO 7.46 K/mm3 (1.96-9.15); NEUTROPHILS PERCENT AUTO 58 % (41-73); Platelet Count 248 K/mm3 (150-400); RDW Standard Deviation 39.4 fL (35.1-46.3); Red Blood Cell Count 5.37 M/mm3 (3.80-5.20); White Blood Cell Count 12.93 K/mm3 (4.00-11.30)
[2022-09-11 21:40] LABS: Albumin, Blood 3.8 g/dL (3.4-5.0); Albumin/Globulin Ratio 1.2 (0.8-1.8); Bilirubin, Total 0.5 mg/dL (0.1-1.0); Bun/Creatinine Ratio 15.1 (12.0-20.0); Calcium, Blood 9.4 mg/dL (8.5-10.1); Creatinine, Blood 0.73 mg/dL (0.40-1.00); Globulin, Blood 3.3 g/dL (2.2-4.0); Potassium, Blood 3.7 mmol/L (3.5-5.5); Total Protein, Blood 7.1 g/dL (6.4-8.2)
[2022-09-11] MEDS ORDERED: Bactrim Ds Tab1 EACH PO (22:31)
[2022-09-11 22:32] LABS: Source, Urine Clean Catch
[2022-09-11 22:39] LABS: Blood, Urine Neg (Neg); Glucose Qualitative, Urine Neg (Neg); Ketones, Urine Neg (Neg); Leukocyte Esterase, Urine Neg (Neg); Nitrite, Urine Pos (Neg); Protein, Urine 2+ (Neg); Urobilinogen, Urine 2+ (Normal)
[2022-09-11 22:49] LABS: Appearance, Urine Hazy (Clear); Bilirubin, Urine 3+ (Neg); Color, Urine Orange (P-Yellow)
[2022-09-11 23:10] LABS: Bacteria Mod /hpf; Red Blood Cells, Urine 0-2 /hpf (0-2); Squamous Epithelial Cells Few /hpf (Few)
== END 2022-09-11 22:46 | disposition home or self-care (01) ==
LOC: ER 19:14
PROVIDERS: Physician Assistant
DX: N39.0 Urinary tract infection, site not specified (principal); Z88.0 Allergy status to penicillin; Z88.5 Allergy status to narcotic agent; Z88.8 Allergy status to other drugs, medicaments and biological substances; Z79.899 Other long term (current) drug therapy; Z79.52 Long term (current) use of systemic steroids
CPT/HCPCS: 36415; 80053; 81001; 85025; 87086; 96374; 96375; 99283-25; J0696; J1885; J7030

== ENCOUNTER → 2022-09-11 | Outpatient (CLI) | payer OTHER ==
[~2022-09-11] MED LIST changes: +Bactrim Ds Tab1 EACH PO; +DOXY100 PO
== END | disposition home or self-care (01) ==
LOC: LAB 19:17 → LAB SHORT 19:17
DX: N39.0 Urinary tract infection, site not specified (principal)
CPT/HCPCS: 87086

== ENCOUNTER 2023-03-15 10:25 | Inpatient (IN) | payer OTHER ==
[~2023-03-15] VITALS: Ht 172.7 cm; Wt 134.6 kg
[~2023-03-15 10:25] MED LIST changes: +Bactrim Ds Tab1 EACH PO; +IPRAT-ALBUT 0.5-3 ML INH; +MASOPHEN325 M3 PO; +SERT100 PO; +SULTRIDS PO
[2023-03-15 10:39] LABS: PO2 Arterial 212 mmHg (80-100); pH Blood Arterial 7.19 (7.35-7.45)
[2023-03-15 10:40] LABS: PCO2 Arterial 70.3 mmHg (35-45)
[2023-03-15 10:41] LABS: BASOPHILS PERCENT AUTO 1 % (0-2); EOSINOPHILS PERCENT AUTO 5 % (0-6); Hematocrit 50.5 % (33.0-51.0); Hemoglobin 16.9 g/dL (11.5-16.0); IMMATURE GRAN ABSOLUTE AUTO 0.69 K/mm3 (0.00-0.10); IMMATURE GRAN PERCENT AUTO 3 % (0-1); LYMPHOCYTES ABSOLUTE AUTO 4.17 K/mm3 (0.84-5.20); LYMPHOCYTES PERCENT AUTO 18 % (21-46); MONOCYTES ABSOLUTE AUTO 1.85 K/mm3 (0.16-1.47); MONOCYTES PERCENT AUTO 8 % (4-13); Mean Corpuscular HGB 29.3 pg (26.0-34.0); Mean Corpuscular HGB Conc 33.5 g/dL (31.5-36.5); Mean Corpuscular Volume 88 fL (80-100); Mean Platelet Volume 10.5 fL (9.1-12.4); NEUTROPHILS ABSOLUTE AUTO 15.19 K/mm3 (1.96-9.15); NEUTROPHILS PERCENT AUTO 65 % (41-73); Platelet Count 296 K/mm3 (150-400); RDW Coefficient Variation 12.7 % (11.7-14.2); RDW Standard Deviation 40.5 fL (35.1-46.3); Red Blood Cell Count 5.76 M/mm3 (3.80-5.20)
[2023-03-15] MEDS ORDERED: Ventolin/Prove6.7 GM INH (10:43)
[2023-03-15] MEDS ORDERED: TRAM50 PO (10:46)
[2023-03-15] MEDS ORDERED: ALENDRONATE SOD35 M6 PO (10:48)
[2023-03-15] MEDS ORDERED: HYDCHL25 PO (10:49)
[2023-03-15] MEDS ORDERED: Tessalon200 MG PO (10:50)
[2023-03-15] MEDS ORDERED: OMEP20ER PO (10:50)
[2023-03-15 10:59] LABS: Albumin, Blood 4.3 g/dL (3.4-5.0); Albumin/Globulin Ratio 1.3 (0.8-1.8); Bilirubin, Total 0.5 mg/dL (0.1-1.0); Bun/Creatinine Ratio 15.5 (12.0-20.0); Calcium, Blood 9.4 mg/dL (8.5-10.1); Creatinine, Blood 0.77 mg/dL (0.40-1.00); Globulin, Blood 3.3 g/dL (2.2-4.0); Potassium, Blood 4.8 mmol/L (3.5-5.5); Total Protein, Blood 7.6 g/dL (6.4-8.2)
[2023-03-15 11:53] LABS: Base Excess Venous -0.7 mmol/L; Bicarbonate Venous 22.7 mmol/L (24.0-30.0); PCO2 Venous 55.8 mmHg (38-42); pH Blood Venous 7.28 (7.34-7.37)
[2023-03-15 14:26] VITALS: BP 128/80
[2023-03-15 16:15] LABS: Base Excess Venous -1.9 mmol/L; Bicarbonate Venous 23.2 mmol/L (24.0-30.0); PCO2 Venous 37.4 mmHg (38-42)
[2023-03-15 16:37] VITALS: BP 134/96
--- NOTE | 2023-03-15 17:48 | NUR ---
PT ARRIVED IN THE ROOM VIA GURNEY FROM [facility] REPORT RECEIVED FORM TAHIR ULRICH. PT ARRIVED WITH BIPAP ON. PT APPEARS TO BE LOOKING A LOT MUCH BETTER PER RESPIRATORY THERAPIST ALSO PER LAST VBG RESULTS PH AT 7.40. PT LAERT AND ORIENTED X4 INDEPENDENT IN THE ROOM. VITALS HRR ST AT 110'S, SBP 130'S, SATS ABOVE 92% ON 3L OF O2 VIA NASAL CANNULA BIPAP ON STANDBY. PT HAS CHEST PAIN 8/10 THAT WAS ADDRESSED TO THE PROVIDER RECOMMENDED TO START TYLENOL, PT WAS UPSET STATING IT DOESNT WORK FINALLY WAS ENCOURAGED TO TRY IT AND TO WAIT ATLEAST 30 MINS BEFORECALLING THE PROVIDER AGAIN. TORADOL WAS TRIED WELL PROVIDER CAME TO TALK TO THE PT ABOUT PAIN MANAGEMENT FINALLY GOT TO TRY OXYCODONE PT HASN'T COMPLAINED TIL AT THIS TIME. REFUSED TO EAT DINNER UNTIL PAIN MEDS KICKED IN. PT IN BED RESTING, CALL LIGHTS IN REACH WILL REPORT TO ONCOMING SHIFT
[2023-03-15 19:57] VITALS: BP 106/68
[2023-03-16] VITALS (7 sets, daily range): BP systolic 101–135; BP diastolic 51–82
[2023-03-16 04:53] LABS: BASOPHILS ABSOLUTE AUTO 0.04 K/mm3 (0.00-0.23); BASOPHILS PERCENT AUTO 0 % (0-2); EOSINOPHILS PERCENT AUTO 0 % (0-6); Hematocrit 43.2 % (33.0-51.0); Hemoglobin 14.9 g/dL (11.5-16.0); IMMATURE GRAN ABSOLUTE AUTO 0.35 K/mm3 (0.00-0.10); IMMATURE GRAN PERCENT AUTO 1 % (0-1); LYMPHOCYTES ABSOLUTE AUTO 0.78 K/mm3 (0.84-5.20); LYMPHOCYTES PERCENT AUTO 3 % (21-46); MONOCYTES ABSOLUTE AUTO 0.59 K/mm3 (0.16-1.47); MONOCYTES PERCENT AUTO 2 % (4-13); Mean Corpuscular HGB Conc 34.5 g/dL (31.5-36.5); Mean Corpuscular Volume 87 fL (80-100); Mean Platelet Volume 10.9 fL (9.1-12.4); NEUTROPHILS ABSOLUTE AUTO 23.64 K/mm3 (1.96-9.15); NEUTROPHILS PERCENT AUTO 93 % (41-73); Platelet Count 217 K/mm3 (150-400); RDW Coefficient Variation 12.8 % (11.7-14.2); RDW Standard Deviation 40.1 fL (35.1-46.3); Red Blood Cell Count 4.96 M/mm3 (3.80-5.20)
[2023-03-16 05:12] LABS: Bun/Creatinine Ratio 12.8 (12.0-20.0); Calcium, Blood 9.2 mg/dL (8.5-10.1); Creatinine, Blood 1.17 mg/dL (0.40-1.00); Potassium, Blood 4.3 mmol/L (3.5-5.5)
--- NOTE | 2023-03-16 05:23 | NUR ---
SHIFT SUMMARY PATIENT WITH NO RESPIRATORY DISTRESS OVERNIGHT. ON 7L HUMIFIED NC. PATIENT EDUCATED ON INGNITION SOURCES AND THE USE OF OXYGEN.
[2023-03-16 08:36] LABS: Source, Urine Clean Catch
[2023-03-16 08:51] LABS: Appearance, Urine Clear (Clear); Bilirubin, Urine Neg (Neg); Blood, Urine Neg (Neg); Color, Urine Yellow (P-Yellow); Glucose Qualitative, Urine Neg (Neg); Ketones, Urine Neg (Neg); Leukocyte Esterase, Urine 1+ (Neg); Nitrite, Urine Neg (Neg); Protein, Urine Neg (Neg); Urobilinogen, Urine NORM (Normal)
[2023-03-16 09:11] LABS: Bacteria Few /hpf; Red Blood Cells, Urine 0-2 /hpf (0-2); Squamous Epithelial Cells Mod /hpf (Few)
[2023-03-16 09:27] LABS: Base Excess Venous 1.3 mmol/L; Bicarbonate Venous 24.2 mmol/L (24.0-30.0); PCO2 Venous 48.3 mmHg (38-42); pH Blood Venous 7.35 (7.34-7.37)
--- NOTE | 2023-03-16 10:15 | NUR ---
AM NOTES; PT STILL C/O PAIN THIS MORNING ON THE CHEST THAT IS WORSENS WITH BREATHING OFFERED PAIN MEDICINE AND TYLENOL AND PT WAS AGREEABLE, PT DIDNT COMPLAIN OF PAIN AFTERWARDS LOOKS COMFORTABLE IN BED CURRENTLY GETTING IN THE SHIWER AT THIS TIME. STILL AT 10L OF 02 VIA NASAL CANNULA STILL HAS WHEEZES ALL T/O UPON AUSCULTATION, BREATHING TX PER RT PROVIDED. REPEAT VBG WAS DONE CO2 STILL HIGH AT [address] PT BACK ON BIPAP, RESPIRATORY THERAPIST MADE AWARE. THE REST OF THE VITALS ARE STABLE. UA SENT TO LAB FEW BACTERIA NOTED. NS AT 100MLS/HR STARTED. NO OTHER ISSUES REPORTED, PT HAS BEEN COOPERATIVE WITH CARES. CALL LIGHTS IN REACH WILL CONTINUE TO MONITOR
--- NOTE | 2023-03-16 12:37 | NUR ---
PT HAD EMESIS AT AROUND 1100 WHILE GETTING HER READY IN THE SHOWER CALLED DR KAUR FOR ANTI NAUSEA MEDS, PT STILL REMAINS NAUSEATED AND HAS BEEN WAITING FOR ORDERS CALLED DR VELASCO TO VERIFY ORDERS ALSO WANTS TO ORDER TEST. WILL MONITOR
[2023-03-16 15:28] LABS: Source, Urine Straight Cath
[2023-03-16 15:42] LABS: Appearance, Urine Hazy (Clear); Bilirubin, Urine Neg (Neg); Blood, Urine Neg (Neg); Color, Urine Yellow (P-Yellow); Glucose Qualitative, Urine Neg (Neg); Ketones, Urine Neg (Neg); Leukocyte Esterase, Urine Neg (Neg); Nitrite, Urine Neg (Neg); Protein, Urine 1+ (Neg); Specific Gravity, Urine 1.025 (1.003-1.022); Urobilinogen, Urine NORM (Normal)
[2023-03-16 16:56] LABS: Bacteria Mod /hpf; Red Blood Cells, Urine 0-2 /hpf (0-2); Squamous Epithelial Cells Many /hpf (Few)
[2023-03-16 16:57] LABS: Amorphous Light (0-Heavy); Mucus Light (0-Heavy)
--- NOTE | 2023-03-16 17:47 | NUR ---
PT SUMMARY: PT WAS GIVEN NAUSEA MEDS X1 FOR THE SHIFT AND WAS EFFECTIVE, PAIN MANAGED BY PAIN MEDS LEFT SIDE OF THE CHEST PAIN WORSENS WITH BREATHING EKG WAS DONE AND WAS NORMAL. RE-ADDRESSED PROVIDER ABOUT INCREASING FREQUENCY PER PT'S REQUEST AWAITING FOR ORDERS. SECOND UA COLLECTED VIA STRAIGHT CATH SENT TO LAB AWAITING FOR CULTURE RESULTS. VITALS HAS BEEN STABLE O2 WAS TITRATED DOWN TO 5L SATS KEPT ABOVE 90%. REPEAT VBG CO2 AT 48 DR ALLISON RECOMMENDED PT BACK ON BIPAP, THIS RN SPOKE WITH RESPIRATORY THERAPIST DOESNT THINK THAT PT NEEDS TO BE BACK ON BIPAP PT WAS NOT IN RESPIRATORY DISTRESS, AND THAT SHE WILL SPEAK TO THE PROVIDER ABOUT IT. PT EATING DINNER WITH FAMILY AT THIS TIME, NO OTHER ISSUES ENCOUNTERED. CALL LIGHTS IN REACH WILL REPORT TO ONCOMING SHIFT
--- NOTE | 2023-03-17 05:05 | NUR ---
SHIFT SUMMARY A/OX4, IND IN ROOM. TELE SR 70-90S, DENIES CHEST PAIN/PRESSURE. SPO2 >92% ON 4L NC. C/O PLEURITC/RIB PAIN, MEDICATED PER EMAR WITH PRN NORCO. IV FLUIDS INFUSING PER EMAR. VSS, NO ACUTE CHANGES AT THIS TIME. BED IN LOWEST POSITION WITH CALL LIGHT IN REACH. WILL CONTINUE TO MONITOR AND REPORT TO ONCOMING RN. PATIENT EDUCATED RE: IGNITION SOURCES AND RISK OF INJURY WHILE OXYGEN IS IN USE. PATIENT DENIES SMOKING VERBALIZES UNDERSTANDING.
[2023-03-17 05:11] LABS: BASOPHILS ABSOLUTE AUTO 0.04 K/mm3 (0.00-0.23); BASOPHILS PERCENT AUTO 0 % (0-2); EOSINOPHILS PERCENT AUTO 0 % (0-6); Hematocrit 41.3 % (33.0-51.0); Hemoglobin 13.9 g/dL (11.5-16.0); IMMATURE GRAN ABSOLUTE AUTO 0.35 K/mm3 (0.00-0.10); IMMATURE GRAN PERCENT AUTO 2 % (0-1); LYMPHOCYTES ABSOLUTE AUTO 0.76 K/mm3 (0.84-5.20); LYMPHOCYTES PERCENT AUTO 3 % (21-46); MONOCYTES ABSOLUTE AUTO 0.74 K/mm3 (0.16-1.47); MONOCYTES PERCENT AUTO 3 % (4-13); Mean Corpuscular HGB 29.6 pg (26.0-34.0); Mean Corpuscular HGB Conc 33.7 g/dL (31.5-36.5); Mean Corpuscular Volume 88 fL (80-100); Mean Platelet Volume 11.2 fL (9.1-12.4); NEUTROPHILS ABSOLUTE AUTO 20.54 K/mm3 (1.96-9.15); NEUTROPHILS PERCENT AUTO 92 % (41-73); Platelet Count 220 K/mm3 (150-400); RDW Coefficient Variation 12.9 % (11.7-14.2); RDW Standard Deviation 40.9 fL (35.1-46.3); Red Blood Cell Count 4.69 M/mm3 (3.80-5.20); White Blood Cell Count 22.43 K/mm3 (4.00-11.30)
[2023-03-17 05:38] LABS: Bun/Creatinine Ratio 22.1 (12.0-20.0); Calcium, Blood 8.6 mg/dL (8.5-10.1); Creatinine, Blood 0.86 mg/dL (0.40-1.00); Potassium, Blood 4.4 mmol/L (3.5-5.5)
[2023-03-17 05:43] VITALS: BP 116/76
[2023-03-17 07:18] VITALS: BP 124/84
--- NOTE | 2023-03-17 09:47 | NUR ---
FIRE SAFETY: PATIENT EDUCATED REGARDING IGNITION SOURCES AND RISK OF INJURY WHILE OXYGEN IS IN USE. PATIENT DENIES SMOKING AND VERBALIZE UNDERSTANDING.
[2023-03-17] MEDS ORDERED: Cefpodoxime Pr100 MG PO (13:51)
[2023-03-17] MEDS ORDERED: SULFAMETHOXAZO1 EAC1 PO (13:56)
--- NOTE | 2023-03-17 14:46 | NUR ---
DISCHARGE: PT DISCHARGED AT 1446 VIA WHEELCHAIR WITH ALL BELONGINGS. DISCHARGE INSTRUCTIONS AND EDUCATION PROVIDED.
== END 2023-03-17 14:45 | disposition home or self-care (01) | DRG 189 ==
LOC: ER 10:25 → PCU 13:24
PROVIDERS: Emergency Medicine; Family Medicine; Student in an Organized Health Care Education/Training Program; ADMIT Internal Medicine
PROC: 5A09357 Assistance with Respiratory Ventilation, Less than 24 Consecutive Hours, Continuous Positive Airway Pressure (ICD-10-PCS; principal; 2023-03-15)
PROC: 4A033R1 Measurement of Arterial Saturation, Peripheral, Percutaneous Approach (ICD-10-PCS; 2023-03-16)
DX: J96.21 Acute and chronic respiratory failure with hypoxia (principal); N17.9 Acute kidney failure, unspecified; Z68.41 Body mass index [BMI] 40.0-44.9, adult; J45.52 Severe persistent asthma with status asthmaticus; N39.0 Urinary tract infection, site not specified; J45.51 Severe persistent asthma with (acute) exacerbation; J96.22 Acute and chronic respiratory failure with hypercapnia; F41.8 Other specified anxiety disorders; I10 Essential (primary) hypertension; E87.8 Other disorders of electrolyte and fluid balance, not elsewhere classified; E66.01 Morbid (severe) obesity due to excess calories; D75.1 Secondary polycythemia; R07.81 Pleurodynia; G47.33 Obstructive sleep apnea (adult) (pediatric); B96.20 Unspecified Escherichia coli [E. coli] as the cause of diseases classified elsewhere; E86.1 Hypovolemia; E86.0 Dehydration; K21.9 Gastro-esophageal reflux disease without esophagitis; D50.9 Iron deficiency anemia, unspecified; M79.7 Fibromyalgia; Z98.890 Other specified postprocedural states; Z90.49 Acquired absence of other specified parts of digestive tract; Z90.89 Acquired absence of other organs; Z88.5 Allergy status to narcotic agent; Z88.0 Allergy status to penicillin; Z88.8 Allergy status to other drugs, medicaments and biological substances; Z79.899 Other long term (current) drug therapy; Z79.51 Long term (current) use of inhaled steroids; Z79.52 Long term (current) use of systemic steroids; Z79.811 Long term (current) use of aromatase inhibitors; Z79.891 Long term (current) use of opiate analgesic
CPT/HCPCS: 36415; 36600; 71045; 80048; 80053; 81001; 82803; 84145; 84703; 85025; 87077; 87086; 87186; 93005; 93010; 94640; 94644; 94660; 94664; 94762; 96374; 96375; 99285-25; A9270; J0696; J1170; J1885; J2405; J2930; J7030

== ENCOUNTER 2023-04-17 05:07 | Emergency (ER) | payer OTHER ==
[~2023-04-17] VITALS: Ht 177.8 cm; Wt 129.3 kg
[~2023-04-17 05:07] MED LIST changes: +ALENDRONATE SOD35 M6 PO; +Cefpodoxime Pr100 MG PO; +SULFAMETHOXAZO1 EAC1 PO; +Ventolin/Prove6.7 GM INH
[2023-04-17 05:48] LABS: BASOPHILS ABSOLUTE AUTO 0.07 K/mm3 (0.00-0.23); BASOPHILS PERCENT AUTO 0 % (0-2); EOSINOPHILS ABSOLUTE AUTO 0.02 K/mm3 (0.00-0.68); EOSINOPHILS PERCENT AUTO 0 % (0-6); Hematocrit 43.3 % (33.0-51.0); IMMATURE GRAN ABSOLUTE AUTO 0.52 K/mm3 (0.00-0.10); IMMATURE GRAN PERCENT AUTO 3 % (0-1); LYMPHOCYTES ABSOLUTE AUTO 1.67 K/mm3 (0.84-5.20); LYMPHOCYTES PERCENT AUTO 10 % (21-46); MONOCYTES PERCENT AUTO 5 % (4-13); Mean Corpuscular HGB 30.5 pg (26.0-34.0); Mean Corpuscular HGB Conc 34.6 g/dL (31.5-36.5); Mean Corpuscular Volume 88 fL (80-100); Mean Platelet Volume 10.7 fL (9.1-12.4); NEUTROPHILS ABSOLUTE AUTO 13.31 K/mm3 (1.96-9.15); NEUTROPHILS PERCENT AUTO 81 % (41-73); Platelet Count 263 K/mm3 (150-400); RDW Coefficient Variation 13.2 % (11.7-14.2); RDW Standard Deviation 42.6 fL (35.1-46.3); Red Blood Cell Count 4.92 M/mm3 (3.80-5.20); White Blood Cell Count 16.39 K/mm3 (4.00-11.30)
[2023-04-17 06:06] LABS: Albumin, Blood 3.7 g/dL (3.4-5.0); Albumin/Globulin Ratio 1.2 (0.8-1.8); Bilirubin, Total 0.3 mg/dL (0.1-1.0); Bun/Creatinine Ratio 14.4 (12.0-20.0); Calcium, Blood 8.8 mg/dL (8.5-10.1); Creatinine, Blood 0.83 mg/dL (0.40-1.00); Globulin, Blood 3.1 g/dL (2.2-4.0); Potassium, Blood 4.1 mmol/L (3.5-5.5); Total Protein, Blood 6.8 g/dL (6.4-8.2)
[2023-04-17] MEDS ORDERED: Prednisone20 MG PO (11:21)
[2023-04-17] MEDS ORDERED: AZIT250 PO (11:21)
[2023-04-17 11:31] VITALS: BP 127/74
== END 2023-04-17 11:30 | disposition home or self-care (01) ==
LOC: ER 05:07
PROVIDERS: Student in an Organized Health Care Education/Training Program
DX: J44.1 Chronic obstructive pulmonary disease with (acute) exacerbation (principal); I10 Essential (primary) hypertension; K21.9 Gastro-esophageal reflux disease without esophagitis; Z88.5 Allergy status to narcotic agent; Z88.6 Allergy status to analgesic agent; Z88.0 Allergy status to penicillin; Z79.52 Long term (current) use of systemic steroids; Z79.899 Other long term (current) drug therapy
CPT/HCPCS: 71046; 80053; 84484; 85025; 93005; 93010; 94644; 94645; 94664; 96374; 96375; 99285-25; J1885; J2270; J2405; J2930